=== PATIENT | male | born 1940 | race Caucasian/White ===

== ENCOUNTER → 2017-08-20 | Outpatient (CLI) | payer BC ==
[~2017-08-20] MED LIST: CHOL2000 PO; CYAN100020 PO; GABA-113 PO; MULT-506 PO; OXYC5TAB PO; POTACAP PO
[2017-08-20 10:12] LABS: BASO % 0.3 %; BASO ABS # 0.02 K/uL (0-0.2); EOS % 1.5 %; EOS ABS # 0.09 K/uL (0-0.5); HEMATOCRIT 46.5 % (42-52); HEMOGLOBIN 15.7 g/dL (14.0-18.0); IG# 0.01 K/uL (0.00-0.02); LYMPH % 26.2 %; MEAN CELL VOLUME 96.1 fL (80-100); MEAN CORPUSCULAR HEMOGLOBIN 32.4 pg (25-34); MEAN CORPUSCULAR HGB CONC 33.8 g/dl (32-36); MEAN PLATELET VOLUME 9.6 fL (7.4-10.4); MONO % 14.4 %; MONO ABS # 0.88 K/uL (0.11-0.59); NEUT % 57.4 %; NEUT ABS # 3.51 K/uL (1.4-6.5); PLATELET COUNT 229 K/uL (130-400); RED CELL DISTRIBUTION WIDTH CV 13.2 % (11.5-14.5); RED CELL DISTRIBUTION WIDTH SD 46.3 fL (36.4-46.3); WHITE BLOOD COUNT 6.11 K/uL (4.8-10.8)
[2017-08-24 14:32] LABS: ANA SCREEN TC 249X NEGATIVE (NEGATIVE)
== END | disposition home or self-care (01) ==
LOC: C.LAB 09:12
PROVIDERS: ATTEND Family Medicine
DX: R53.83 Other fatigue (principal); N40.2 Nodular prostate without lower urinary tract symptoms

== ENCOUNTER → 2017-08-25 | Outpatient (CLI) | payer BC ==
--- NOTE | 2017-08-25 12:06 | DIAGNOSTIC IMAGING REPORT ---
L-SPINE MIN 4 VIEWS ROUTINE CLINICAL HISTORY: LUMBAR PAIN COMPARISON: None FINDINGS: There is mild levoscoliosis of the lumbar spine. Vertebral body heights are maintained. There is no fracture or suspicious lesion. There is severe disc space narrowing at L4-L5. There is osteophytosis and sclerosis. There is mild to moderate disc space narrowing of multiple additional levels. There is moderate multilevel facet arthrosis. IMPRESSION: 1. No lumbar spine fracture or subluxation. 2. Marked disc space narrowing at L4-L5. 3. Moderate multilevel facet arthrosis. 4. Mild levoscoliosis of the lower lumbar spine. Electronically signed by: Felix Rubio M.D. 08/25/2017 12:04 PM Dictated Date/Time: 08/25/2017 12:03 PM
== END | disposition home or self-care (01) ==
LOC: C.RAD 11:38
PROVIDERS: ATTEND Family Medicine
DX: M54.5 Low back pain (principal)

== ENCOUNTER 2021-02-28 16:46 | Inpatient (IN) ==
[2021-02-28] MEDS ORDERED: MoRPHine SULFATE 4 MG/ML 1 ML CARP\\VIAL IV PRN (17:45)
[2021-02-28] MEDS ORDERED: SODIUM CHLORIDE 0.9% 1000ML 1,000 ML IV STA (17:45)
[2021-02-28] MEDS ORDERED: ONDANSETRON INJ 2 MG/ML 2 ML VIAL IV STA (17:45)
[2021-02-28] MEDS ORDERED: OPTIRAY 320 100ml IV ONE (18:15)
[2021-02-28 18:16] LABS: Hematocrit (blood only) 50.2 % (42-52); Hemoglobin 16.6 g/dL (14.0-18.0); Immature Granulocytes # (auto) 0.02 K/uL (0.00-0.02); Immature Granulocytes % (auto) 0.2 %; Lymphocytes # (auto) 0.29 K/uL (1.2-3.4); Mean Corpuscular Hemoglobin 33.6 pg (25-34); Mean Corpuscular Hgb Conc 33.1 g/dL (32-36); Mean Corpuscular Volume 101.6 fL (80-100); Mean Platelet Volume 9.8 fL (7.4-10.4); Monocytes # (auto) 0.33 K/uL (0.11-0.59); Monocytes % (auto) 3.4 %; Neutrophils # (auto) 9.11 K/uL (1.4-6.5); Neutrophils % (auto) 93.4 %; Platelet Count 254 K/uL (130-400); RDW Coefficient of Variation 13.7 % (11.5-14.5); RDW Standard Deviation 50.9 fL (36.4-46.3); Red Blood Count 4.94 M/uL (4.7-6.1); White Blood Count 9.75 K/uL (4.8-10.8)
[2021-02-28 18:29] LABS: Partial Thromboplastin Time 25.3 Seconds (21.0-31.0); Prothrombin Time 10.5 Seconds (9.0-12.0)
[2021-02-28 18:35] LABS: Alanine Aminotransferase 188 U/L (12-78); Albumin Level 3.8 gm/dl (3.4-5.0); Aspartate Aminotransferase 227 U/L (15-37); BUN Creatinine Ratio 13.2 (10-20); Blood Urea Nitrogen 16 mg/dl (7-18); Calcium 9.6 mg/dl (8.5-10.1); Carbon Dioxide 26 mmol/L (21-32); Chloride 107 mmol/L (98-107); Est GFR (African American) 67.4 ml/min; Est GFR (Non-African American) 58.2 ml/min; Glucose 127 mg/dl (70-99); Potassium 3.9 mmol/L (3.5-5.1); Sodium 140 mmol/L (136-145)
[2021-02-28 18:40] LABS: Alkaline Phosphatase 98 U/L (45-117); Bilirubin,Total 3.9 mg/dl (0.2-1); Globulin 3.8 gm/dl (2.5-4.0); Lipase 3113 U/L (73-393); Total Protein 7.6 gm/dl (6.4-8.2); Troponin I < 0.015 ng/ml (0-0.045)
[2021-02-28] MEDS ORDERED: PIPERACILL/TAZOBAC CONSULT ACTIVE PRN (18:46)
[2021-02-28] MEDS ORDERED: PIPERACILLIN/TAZOBACTAM 4.5 GM/120 ML BAG IV ONE (18:46)
--- NOTE | 2021-02-28 18:54 | CT Scan Report ---
CT SCAN OF THE ABDOMEN AND PELVIS WITH IV CONTRAST CLINICAL HISTORY: Vomiting. COMPARISON STUDY: Lumbar spine radiographs dated 08/25/2017. TECHNIQUE: Following the IV administration of 94 cc of Optiray 320, CT scan of the abdomen and pelvi s is performed from the lung bases to the proximal femora. Images are reviewed in the axial, sagittal , and coronal planes. IV contrast was administered without complication. A dose lowering technique wa s utilized adhering to the principles of ALARA. CT DOSE: 533.24 mGy.cm FINDINGS: Lung bases: The heart is top normal in size and without pericardial effusion. There are coronary daniela ry calcifications. A moderate hiatal hernia is noted. The lung bases are clear noting bibasilar scarr ing/atelectasis. Liver: The contrast-enhanced liver is normal in size, contour, and attenuation. There is no intrahepa tic biliary ductal dilatation. The hepatic veins and portal veins are patent. Mild periportal edema i s noted. Gallbladder: There are numerous calcified gallstones. The gallbladder is distended, with wall thicken ing and hyperemia. Pericholecystic stranding is observed. Spleen: Normal in size and attenuation. Pancreas: Unremarkable. Adrenal glands: Unremarkable. Kidneys: The contrast enhanced kidneys demonstrate cortical atrophy and are without hydronephrosis. T he kidneys enhance symmetrically. Abdominal vasculature: The abdominal aorta is normal in course and caliber noting moderate to advance d atherosclerotic calcification. Bowel: There is moderate colonic diverticulosis without CT evidence of acute diverticulitis. No bowel obstruction is seen. A duodenal diverticulum is incidentally noted. Question nodular wall thickening of the second portion of the duodenum, best seen on axial image #181. The appendix is well-visualiz ed and normal. Peritoneum: There is no intraperitoneal free air or abdominal ascites. Lymphadenopathy: None. Pelvic viscera: The prostate gland is mildly enlarged and heterogeneous. The bladder is distended. Bl adder wall appears mildly thickened and trabeculated indicating chronic outlet obstruction. There are small bilateral fat-containing inguinal hernias, right larger than left. Skeletal structures: The skeletal structures are osteopenic. There are healed left-sided rib fracture s. Moderate lumbosacral spondylosis is observed. No lytic or blastic lesions are seen. IMPRESSION: 1. Cholelithiasis with acute cholecystitis. 2. There is no intra or extrahepatic biliary ductal dilatation. 3. Question nodular wall thickening of the second portion of the duodenum. This is of indeterminant s ignificance and may represent redundant mucosa. Consider correlation with endoscopy to assess for und erlying mass lesion. 4. Moderate colonic diverticulosis without CT evidence of acute diverticulitis. 5. Hiatal hernia. 6. Additional findings as above. ACT 112: Positive. There are findings on this exam that require communication between the performing entity and the patient following Patient Test Result Information Act ([place] Act 112) guidelines. Electronically signed by: Romeo Fiore M.D. 02/28/2021 6:52 PM
--- NOTE | 2021-02-28 18:56 | Emergency Department Note ---
Impression & Plan Acute cholecystitis, Acute gallstone pancreatitis, Abdominal pain, acute, epigastric, Atrial fibrillation with rapid ventricular response ED Provider Note NAME: PEG KAUR AGE: 80 SEX: M : 1940 ARRIVES VIA: Walk-In INFORMANT: Patient, ED PROVIDER(S): Alan Shannon DO CHIEF COMPLAINT: Abdominal pain HPI: The patient is a 80-year-old male who presented to the emergency department for an evaluation of abdominal pain. The patient is very severe periumbilical and upper quadrant abdominal pain. The patient has had episodes of nausea vomiting. This occurred after eating today. He has never had similar symptoms in the past. He states the pain was acute and severe. He has had no recent trauma. He is noticed no fevers. He notices no chest pain or difficulty breathing. The patient himself does not have a history of surgical procedures on his abdomen. He still has his gallbladder as well as appendix. He is never had a bowel obstruction. He did not see a provider prior to coming to the emergency department. He states his symptoms are moderate to severe. His symptoms worsen with palpation over the abdomen as well as ambulation. ROS: See above HPI for pertinent positives & negatives. A total of 10 systems reviewed and were otherwise negative. PAST MEDICAL HISTORY: See Below PAST SURGICAL HISTORY: See Below FAMILY HISTORY: See Below SOCIAL HISTORY: See Below HOME MEDICATIONS: See Below ALLERGIES: See Below VITALS: See Below PHYSICAL EXAMINATION: GENERAL: The patient is awake and alert. The patient is very anxious appearing. He is significant pain. EYES: The conjunctivae are clear. The pupils are round and reactive. EARS, NOSE, MOUTH AND THROAT: The nose is without any evidence of any deformity. NECK: The neck is nontender and supple. RESPIRATORY: Normal respiratory effort is noted there is no evidence of wheezing rhonchi or rales CARDIOVASCULAR: Regular rate and rhythm noted there no murmurs rubs or gallops normal S1 normal S2. GASTROINTESTINAL: The abdomen is soft and moderately distended. There is significant pain to palpation over the upper abdomen in the right upper quadrant as well as epigastric region. MUSCULOSKELETAL/EXTREMITIES: There is no evidence of gross deformity full range of motion is noted in the hips and shoulders. SKIN: There is no obvious evidence of any rash. There are no petechiae, pallor or cyanosis noted. NEUROLOGIC: Patient is awake alert and oriented x3. MEDICAL DECISION MAKING: The patient is a 80-year-old male who presented to the emergency department with acute epigastric abdominal pain. On physical exam patient did have very significant findings and was guarding in his upper abdomen. I discussed the patient's laboratory and radiographic studies with him. He was treated with IV fluids IV pain medication and IV antiemetics. He was also treated with IV antib iotics. The patient was found no signs of cholecystitis on radiographic studies and also had elevation in his liver function studies that could be consistent with an obstructive pattern. I discussed the patient's condition with the on- call general surgeon. I also discussed his case with the on-call [facility] hospitalist. The patient was also found to have atrial fibrillation. This would be a new diagnosis for him. Likely the patient will require further medical treatment and clearance prior to surgical intervention. He may also require evaluation for obstructive gallstones. Triage Nursing notes reviewed. Prior medical records reviewed Vital Signs: reviewed and remarkable for hypertension. Differential diagnosis: Appendicitis, testicular torsion, infections, diverticulitis, UTI, obstruction, mesenteric ischemia, aortic pathology, inflammatory bowel disease, renal colic, PUD, pancreatitis, biliary pathology, hernia, volvulus, constipation, as well as other pathologies. ER treatment provided: See below Diagnostics interpreted by me: ECG: EKG was obtained in the emergency department. My interpretation is atrial fibrillation at 103 bpm. There were no PVCs noted. Low voltage was noted throughout. This was compared to a tracing from November [id number]. Sinus rhythm has been replaced with atrial fibrillation. Cardiac Monitoring: An order was placed for continuous cardiac monitoring. The monitor shows a rate of 88 bpm with sinus rhythm. Laboratory studies: As stated above and show below. Imaging studies: See below Consultation(s): 1929: I discussed this case with Dr. Haskins. 1999: I discussed this case with Dr. Cruz who is on-call for [facility]. He will evaluate the patient in the emergency department. 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 Prostate nodule Skin cancer Varicose veins with inflammation Surgical History No pertinent past surgical history Family History Denies family history of Hearing loss No family history of adverse response to anesthesia No family history of bleeding disorder Heart disease Allergies Cancer Hypertension Stroke Asthma Social History Smoking Status: Never smoker Tobacco Type: Cigarettes and Smokeless Tobacco (Dip or Chew) Hx Alcohol Use: Yes Alcohol type: beer Alcohol Intake Frequency Comment: 6 pack a week Hx Substance Use: No Preferred Language: Occitan Communication Ability: Effective marital status: / Current Living Situation: Alone current occupational status: retired Feels Safe at Home: Yes Allergies Allergies Allergy/AdvReac Type Severity Reaction Status Date / Time No Known Drug Allergies Allergy Unknown Verified 02/28/21 17:43 Home Meds Home Medications Medication Instructions Recorded Confirmed celecoxib 200 mg capsule 200 mg PO BID 02/28/21 02/28/21 cyclobenzaprine 10 mg tablet 10 mg PO TID PRN 02/28/21 02/28/21 quinidine sulfate 200 mg tablet 200 mg PO DAILY PRN 02/28/21 02/28/21 Results & Data (ED) Vital Signs Vital Signs - 24 hr 02/28/21 16:53 02/28/21 18:16 Temperature 36 C L Temperature Source Temporal Artery Scan Pulse Rate 88 Pulse Rhythm Regular Pulse Strength Normal Respiratory Rate 16 Respiratory Effort / Characteristics Non-Labored Respiratory Depth Normal Respiratory Pattern Regular Blood Pressure 149/130 H Blood Pressure Mean 136 Blood Pressure Position Sitting Pulse Oximetry 96 93 Oxygen Delivery Method Room Air Nasal Cannula Oxygen Flow Rate 6 Sepsis Recent Fever Within 48 Hours No Sepsis New/Unexplained Change in Mental Status N/A Sepsis Action Taken by Nursing No Action Required Home Medications Current Medication List: was personally reviewed by me Laboratory Data Attestation: I reviewed the patient's lab results. Result diagrams: 02/28/21 18:02 02/28/21 18:02 Lab Results 02/28/21 02/28/21 02/28/21 Range/Units 18:02 18:02 18:02 WBC 9.75 (4.8-10.8) K/uL RBC 4.94 (4.7-6.1) M/uL Hgb 16.6 (14.0-18.0) g/dL Hct 50.2 (42-52) % MCV 101.6 H (80-100) fL MCH 33.6 (25-34) pg MCHC 33.1 (32-36) g/dL RDW Std Deviation 50.9 H (36.4-46.3) fL RDW Coeff of Francine 13.7 (11.5-14.5) % Plt Count 254 (130-400) K/uL MPV 9.8 (7.4-10.4) fL Immature Gran % (Auto) 0.2 % Neut % (Auto) 93.4 % Lymph % (Auto) 3.0 % Hanson % (Auto) 3.4 % Eos % (Auto) 0.0 % Baso % (Auto) 0.0 % Neut # (Auto) 9.11 H (1.4-6.5) K/uL Lymph # (Auto) 0.29 L (1.2-3.4) K/uL Hanson # (Auto) 0.33 (0.11-0.59) K/uL Eos # (Auto) 0.00 (0-0.5) K/uL Baso # (Auto) 0.00 (0-0.2) K/uL Immature Gran # (Auto) 0.02 (0.00-0.02) K/uL PT 10.5 (9.0-12.0) Seconds INR 1.0 (0.9-1.1) APTT 25.3 (21.0-31.0) Seconds PTT Ratio 1.0 Sodium 140 (136-145) mmol/L Potassium 3.9 (3.5-5.1) mmol/L Chloride 107 (98-107) mmol/L Carbon Dioxide 26 (21-32) mmol/L Anion Gap 7.0 (3-11) BUN 16 (7-18) mg/dl Creatinine 1.19 (0.6-1.4) mg/dl Est Cr Clr Drug Dosing Not Reportable Est GFR ( Amer) 67.4 ml/min Est GFR (Non-Af Amer) 58.2 ml/min BUN/Creatinine Ratio 13.2 (10-20) Glucose 127 H (70-99) mg/dl Calcium 9.6 (8.5-10.1) mg/dl Total Bilirubin 3.9 H (0.2-1) mg/dl AST 227 H (15-37) U/L ALT 188 H (12-78) U/L Alkaline Phosphatase 98 (45-117) U/L Troponin I < 0.015 (0-0.045) ng/ml Total Protein 7.6 (6.4-8.2) gm/dl Albumin 3.8 (3.4-5.0) gm/dl Globulin 3.8 (2.5-4.0) gm/dl Albumin/Globulin Ratio 1.0 (0.9-2) Lipase 3113 H (73-393) U/L COVID-19 Eval Order 02/28/21 Range/Units Unknown WBC (4.8-10.8) K/uL RBC (4.7-6.1) M/uL Hgb (14.0-18.0) g/dL Hct (42-52) % MCV (80-100) fL MCH (25-34) pg MCHC (32-36) g/dL RDW Std Deviation (36.4-46.3) fL RDW Coeff of Francine (11.5-14.5) % Plt Count (130-400) K/uL MPV (7.4-10.4) fL Immature Gran % (Auto) % Neut % (Auto) % Lymph % (Auto) % Hanson % (Auto) % Eos % (Auto) % Baso % (Auto) % Neut # (Auto) (1.4-6.5) K/uL Lymph # (Auto) (1.2-3.4) K/uL Hanson # (Auto) (0.11-0.59) K/uL Eos # (Auto) (0-0.5) K/uL Baso # (Auto) (0-0.2) K/uL Immature Gran # (Auto) (0.00-0.02) K/uL PT (9.0-12.0) Seconds INR (0.9-1.1) APTT (21.0-31.0) Seconds PTT Ratio Sodium (136-145) mmol/L Potassium (3.5-5.1) mmol/L Chloride (98-107) mmol/L Carbon Dioxide (21-32) mmol/L Anion Gap (3-11) BUN (7-18) mg/dl Creatinine (0.6-1.4) mg/dl Est Cr Clr Drug Dosing Est GFR ( Amer) ml/min Est GFR (Non-Af Amer) ml/min BUN/Creatinine Ratio (10-20) Glucose (70-99) mg/dl Calcium (8.5-10.1) mg/dl Total Bilirubin (0.2-1) mg/dl AST (15-37) U/L ALT (12-78) U/L Alkaline Phosphatase (45-117) U/L Troponin I (0-0.045) ng/ml Total Protein (6.4-8.2) gm/dl Albumin (3.4-5.0) gm/dl Globulin (2.5-4.0) gm/dl Albumin/Globulin Ratio (0.9-2) Lipase (73-393) U/L COVID-19 Eval Order Covid19 at [facility] Administered Medications Morphine Sulfate (Morphine Sulfate 4 Mg/Ml 1 Ml Carp\Vial) 4 mg IV Q15M PRN PRN Reason: Pain Stop: 03/14/21 17:44 Last Admin: 02/28/21 17:59 Dose: 4 mg Documented by: [id number] Discontinued Medications Sodium Chloride (Nss 1000ml) 1,000 mls @ 999 mls/hr IV .Q1H1M STA Stop: 02/28/21 18:45 Last Infusion: 02/28/21 21:19 Dose: 0 mls/hr Documented by: [id number] Admin: 02/28/21 17:59 Dose: 999 mls/hr Documented by: [id number] Piperacillin Sod/Tazobactam Sod (Zosyn) 4.5 gm in 120 mls @ 240 mls/hr IV NOW ONE Stop: 02/28/21 19:15 Last Infusion: 02/28/21 19:49 Dose: 0 mls/hr Documented by: [id number] Admin: 02/28/21 19:10 Dose: 240 mls/hr Documented by: [id number] Sodium Chloride (Nss 1000ml) 1,000 mls @ 999 mls/hr IV .Q1H1M ONE Stop: 02/28/21 21:15 Last Infusion: 02/28/21 23:07 Dose: 0 mls/hr Documented by: [id number] Admin: 02/28/21 20:58 Dose: 999 mls/hr Documented by: [id number] Ioversol (Optiray 320 100ml) 94 ml IV ONCE ONE Stop: 02/28/21 18:16 Last Admin: 02/28/21 18:16 Dose: 94 ml Documented by: [id number] Ondansetron HCl (Ondansetron Inj 2 Mg/Ml 2 Ml Vial) 4 mg IV NOW STA Stop: 02/28/21 17:46 Last Admin: 02/28/21 17:59 Dose: 4 mg Documented by: [id number] Imaging Data Radiologist's Impression: Abdomen/Pelvis CT 02/28/21 17:45 CT SCAN OF THE ABDOMEN AND PELVIS WITH IV CONTRAST CLINICAL HISTORY: Vomiting. COMPARISON STUDY: Lumbar spine radiographs dated 08/25/2017. TECHNIQUE: Following the IV administration of 94 cc of Optiray 320, CT scan of the abdomen and pelvis is performed from the lung bases to the proximal femora. Images are reviewed in the axial, sagittal, and coronal planes. IV contrast was administered without complication. A dose lowering technique was utilized adhering to the principles of ALARA. CT DOSE: 533.24 mGy.cm FINDINGS: Lung bases: The heart is top normal in size and without pericardial effusion. There are coronary artery calcifications. A moderate hiatal hernia is noted. The lung bases are clear noting bibasilar scarring/atelectasis. Liver: The contrast-enhanced liver is normal in size, contour, and attenuation. There is no intrahepatic biliary ductal dilatation. The hepatic veins and portal veins are patent. Mild periportal edema is noted. Gallbladder: There are numerous calcified gallstones. The gallbladder is distended, with wall thickening and hyperemia. Pericholecystic stranding is observed. Spleen: Normal in size and attenuation. Pancreas: Unremarkable. Adrenal glands: Unremarkable. Kidneys: The contrast enhanced kidneys demonstrate cortical atrophy and are without hydronephrosis. The kidneys enhance symmetrically. Abdominal vasculature: The abdominal aorta is normal in course and caliber noting moderate to advanced atherosclerotic calcification. Bowel: There is moderate colonic diverticulosis without CT evidence of acute diverticulitis. No bowel obstruction is seen. A duodenal diverticulum is incidentally noted. Question nodular wall thickening of the second portion of the duodenum, best seen on axial image #181. The appendix is well-visualized and normal. Peritoneum: There is no intraperitoneal free air or abdominal ascites. Lymphadenopathy: None. Pelvic viscera: The prostate gland is mildly enlarged and heterogeneous. The bladder is distended. Bladder wall appears mildly thickened and trabeculated indicating chronic outlet obstruction. There are small bilateral fat-containing inguinal hernias, right larger than left. Skeletal structures: The skeletal structures are osteopenic. There are healed left-sided rib fractures. Moderate lumbosacral spondylosis is observed. No lytic or blastic lesions are seen. IMPRESSION: 1. Cholelithiasis with acute cholecystitis. 2. There is no intra or extrahepatic biliary ductal dilatation. 3. Question nodular wall thickening of the second portion of the duodenum. This is of indeterminant significance and may represent redundant mucosa. Consider correlation with endoscopy to assess for underlying mass lesion. 4. Moderate colonic diverticulosis without CT evidence of acute diverticulitis. 5. Hiatal hernia. 6. Additional findings as above. ACT 112: Positive. There are findings on this exam that require communication between the performing entity and the patient following Patient Test Result Information Act ([place] Act 112) guidelines. Electronically signed by: Romeo Fiore M.D. 02/28/2021 6:52 PM Discharge Plan Visit Data Chief Complaint: Abdominal Pain Stated Complaint: SEVERE ABD PAIN, VOMITING ED Provider: Alan Shannon Discharge Problem: Acute cholecystitis, Acute gallstone pancreatitis, Abdominal pain, acute, epigastric, Atrial fibrillation with rapid ventricular response Patient Disposition: Being Evaluated by Hospitalist Condition: Good Forms Stand Alone Forms: [employer] Prescriptions Prescriptions: No Action celecoxib 200 mg capsule 200 mg PO BID RF: 0 cyclobenzaprine 10 mg tablet 10 mg PO TID PRN (Reason: Muscle Spasm) RF: 0 quinidine sulfate 200 mg tablet 200 mg PO DAILY PRN (Reason: cramping) RF: 0 Referrals Referrals: Scout Tomlin MD [Primary Care Provider] -
[2021-02-28] MEDS ORDERED: SODIUM CHLORIDE 0.9% 1000ML 1,000 ML IV ONE (20:15)
--- NOTE | 2021-02-28 21:47 | History & Physical Report ---
Date of Service February 28, 2021 Assessment & Plan (1) Acute cholecystitis: Plan: Acute cholecystitis/acute gallstone pancreatitis- Laboratories: Total bilirubin 3.9, AST 227, ALT 188, lipase 3113, will be followed serially NPO Zosyn 4.5 g IV every 8 hours Zofran 4 mg IV every 6 hours as needed NSS + KCl 20 mEq at 100 mils per hour Morphine sulfate 2 mg IV every 4 hours as needed severe pain, monitor closely for excess sedation Have asked ED to order MRCP. If MRCP shows, bile duct obstructing stone, then GI will be consulted for an ERCP. General surgery is aware the patient New onset atrial fibrillation- The patient will be admitted to telemetry for serial cardiac enzymes, serial EKG's, cardiac rhythm monitoring and a 2-D echocardiogram with Dopplers. Mild RVR with rate of 103 Significantly dehydrated, and will rehydrate with IV fluids as noted Patient with low [id number] score. We will hold anticoagulation this evening Pneumonia with Hypoxia/left parapneumonic effusion- CT angiography shows progressive changes at the bases bilaterally, left greater than right. Would be concerning for possible aspiration pneumonia while in the ED versus pneumonia precipitated by atelectasis Continue nasal cannula oxygen, titration to keep pulse ox around 94 to 95% Zosyn IV as above DuoNebs every 2 hours as needed COVID-19 testing was negative (2) Acute gallstone pancreatitis: Plan: See above (3) Atrial fibrillation with rapid ventricular response: Plan: No history of atrial fibrillation Likely secondary to physiologic stress of gallstone pancreatitis and pneumonia Holding anticoagulation for tonight as noted above Heart rate is controlled in the 90s on no negative inotropes (4) Bilateral leg cramps: Plan: Holding oral medications History of Present Illness Chief Complaint: The patient presents to the emergency department for assessment of severe periumbilical and right upper quadrant abdominal pain, nausea and vomiting, that occurred after eating today. Primary Care Provider: Scout Tomlin MD The patient is a 80-year-old male with past medical history including cervical spinal stenosis, epistaxis, and leg cramps. He presents with symptoms as noted above. He never had symptoms. He does feel generally weak as well. Work-up in the emergency department included the following abnormal laboratories: Total bilirubin 3.9, AST 227, ALT 188, lipase 3113 and glucose 127. EKG shows atrial fibrillation with RVR at 103 COVID-19 testing is pending at this time. The patient did become somewhat hypoxic, changed from 96% to 76% after receiving morphine 4 mg IV, and chest x-ray is pending Allergies Allergy/AdvReac Type Severity Reaction Status Date / Time No Known Drug Allergies Allergy Unknown Verified 02/28/21 17:43 Home Medications Medication Instructions Recorded Confirmed Type celecoxib 200 mg capsule 200 mg PO BID 02/28/21 02/28/21 History cyclobenzaprine 10 mg tablet 10 mg PO TID PRN 02/28/21 02/28/21 History quinidine sulfate 200 mg tablet 200 mg PO DAILY PRN 02/28/21 02/28/21 History 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 Prostate nodule Skin cancer Varicose veins with inflammation Surgical History No pertinent past surgical history Family History Denies family history of Hearing loss No family history of adverse response to anesthesia No family history of bleeding disorder Heart disease Allergies Cancer Hypertension Stroke Asthma Social History Smoking Status: Never smoker Tobacco Type: Cigarettes and Smokeless Tobacco (Dip or Chew) Hx Alcohol Use: Yes Alcohol type: beer Alcohol Intake Frequency Comment: 6 pack a week Hx Substance Use: No Preferred Language: [place]ankan Communication Ability: Effective marital status: / Current Living Situation: Alone current occupational status: retired Feels Safe at Home: Yes Review of Systems Review of Systems: The patient denies chest pain, palpitations, cough, lower extremity swelling, sore throat, fevers, chills, sweats, vomiting, diarrhea , constipation, blood in urine or stool, dysuria, urinary frequency or urgency, lightheadedness, dizziness, headache, memory loss, loss of consciousness, rash, abnormal bruising or bleeding, imbalance, focal weakness, numbness or tingling in arms or legs, generalized arthralgias or myalgias, back or neck pain, or night sweats. The review of systems is otherwise negative other than for that already noted above, and at least 10 systems have been reviewed. Physical Exam Physical Exam: The patient is awake, alert and oriented 3, normocephalic and atraumatic, lying in bed and in no acute distress. HEENT--PERRL, EOMI, mucous membranes and oropharynx dry. Neck--supple. No JVD. No bruits. Thyroid normal, trachea midline, no adenopathy. Heart--normal S1 and S2. No murmurs, rubs or gallops. Lungs--clear bilaterally, no respiratory distress, no accessory muscle use. Abdomen--normal bowel sounds and soft. Nontender post morphine IV. Nondistended Extremities--no cyanosis or clubbing. No edema. Dermatologic--normal skin turgor, normal color, no abnormal lymph nodes, no rash. Neurologic--cranial nerves II through XII grossly intact. Rheumatologic--normal range of motion. Psychiatric--normal affect. Results & Data Results & Data ([facility]) Vital Signs (Past 12 Hours) Vital Signs Temp Pulse Resp BP Pulse Ox 02/28/21 18:16 93 02/28/21 16:53 96.8 F L 88 16 149/130 H 96 Laboratory Results Laboratory Results WBC 9.75 K/uL (4.8-10.8) 02/28/21 18:02 RBC 4.94 M/uL (4.7-6.1) 02/28/21 18:02 Hgb 16.6 g/dL (14.0-18.0) 02/28/21 18:02 Hct 50.2 % (42-52) 02/28/21 18:02 MCV 101.6 fL (80-100) H 02/28/21 18:02 MCH 33.6 pg (25-34) 02/28/21 18:02 MCHC 33.1 g/dL (32-36) 02/28/21 18:02 RDW Std Deviation 50.9 fL (36.4-46.3) H 02/28/21 18:02 RDW Coeff of Francine 13.7 % (11.5-14.5) 02/28/21 18:02 Plt Count 254 K/uL (130-400) 02/28/21 18:02 MPV 9.8 fL (7.4-10.4) 02/28/21 18:02 Immature Gran % (Auto) 0.2 % 02/28/21 18:02 Neut % (Auto) 93.4 % 02/28/21 18:02 Lymph % (Auto) 3.0 % 02/28/21 18:02 Noble % (Auto) 3.4 % 02/28/21 18:02 Eos % (Auto) 0.0 % 02/28/21 18:02 Baso % (Auto) 0.0 % 02/28/21 18:02 Neut # (Auto) 9.11 K/uL (1.4-6.5) H 02/28/21 18:02 Lymph # (Auto) 0.29 K/uL (1.2-3.4) L 02/28/21 18:02 Noble # (Auto) 0.33 K/uL (0.11-0.59) 02/28/21 18:02 Eos # (Auto) 0.00 K/uL (0-0.5) 02/28/21 18:02 Baso # (Auto) 0.00 K/uL (0-0.2) 02/28/21 18:02 Immature Gran # (Auto) 0.02 K/uL (0.00-0.02) 02/28/21 18:02 PT 10.5 Seconds (9.0-12.0) 02/28/21 18:02 INR 1.0 (0.9-1.1) 02/28/21 18:02 APTT 25.3 Seconds (21.0-31.0) 02/28/21 18:02 PTT Ratio 1.0 02/28/21 18:02 Sodium 140 mmol/L (136-145) 02/28/21 18:02 Potassium 3.9 mmol/L (3.5-5.1) 02/28/21 18:02 Chloride 107 mmol/L (98-107) 02/28/21 18:02 Carbon Dioxide 26 mmol/L (21-32) 02/28/21 18:02 Anion Gap 7.0 (3-11) 02/28/21 18:02 BUN 16 mg/dl (7-18) 02/28/21 18:02 Creatinine 1.19 mg/dl (0.6-1.4) 02/28/21 18:02 Est Cr Clr Drug Dosing Not Reportable 02/28/21 18:02 Est GFR ( Amer) 67.4 ml/min 02/28/21 18:02 Est GFR (Non-Af Amer) 58.2 ml/min 02/28/21 18:02 BUN/Creatinine Ratio 13.2 (10-20) 02/28/21 18:02 Glucose 127 mg/dl (70-99) H 02/28/21 18:02 Calcium 9.6 mg/dl (8.5-10.1) 02/28/21 18:02 Total Bilirubin 3.9 mg/dl (0.2-1) H 02/28/21 18:02 AST 227 U/L (15-37) H 02/28/21 18:02 ALT 188 U/L (12-78) H 02/28/21 18:02 Alkaline Phosphatase 98 U/L (45-117) 02/28/21 18:02 Troponin I < 0.015 ng/ml (0-0.045) 02/28/21 18:02 Total Protein 7.6 gm/dl (6.4-8.2) 02/28/21 18:02 Albumin 3.8 gm/dl (3.4-5.0) 02/28/21 18:02 Globulin 3.8 gm/dl (2.5-4.0) 02/28/21 18:02 Albumin/Globulin Ratio 1.0 (0.9-2) 02/28/21 18:02 Lipase 3113 U/L (73-393) H 02/28/21 18:02 COVID-19 Eval Order Covid19 at [facility] 02/28/21 Unknown Impressions Abdomen/Pelvis CT 02/28/21 17:45 CT SCAN OF THE ABDOMEN AND PELVIS WITH IV CONTRAST CLINICAL HISTORY: Vomiting. COMPARISON STUDY: Lumbar spine radiographs dated 08/25/2017. TECHNIQUE: Following the IV administration of 94 cc of Optiray 320, CT scan of the abdomen and pelvis is performed from the lung bases to the proximal femora. Images are reviewed in the axial, sagittal, and coronal planes. IV contrast was administered without complication. A dose lowering technique was utilized adhering to the principles of ALARA. CT DOSE: 533.24 mGy.cm FINDINGS: Lung bases: The heart is top normal in size and without pericardial effusion. There are coronary artery calcifications. A moderate hiatal hernia is noted. The lung bases are clear noting bibasilar scarring/atelectasis. Liver: The contrast-enhanced liver is normal in size, contour, and attenuation. There is no intrahepatic biliary ductal dilatation. The hepatic veins and portal veins are patent. Mild periportal edema is noted. Gallbladder: There are numerous calcified gallstones. The gallbladder is distended, with wall thickening and hyperemia. Pericholecystic stranding is observed. Spleen: Normal in size and attenuation. Pancreas: Unremarkable. Adrenal glands: Unremarkable. Kidneys: The contrast enhanced kidneys demonstrate cortical atrophy and are without hydronephrosis. The kidneys enhance symmetrically. Abdominal vasculature: The abdominal aorta is normal in course and caliber noting moderate to advanced atherosclerotic calcification. Bowel: There is moderate colonic diverticulosis without CT evidence of acute diverticulitis. No bowel obstruction is seen. A duodenal diverticulum is incidentally noted. Question nodular wall thickening of the second portion of the duodenum, best seen on axial image #181. The appendix is well-visualized and normal. Peritoneum: There is no intraperitoneal free air or abdominal ascites. Lymphadenopathy: None. Pelvic viscera: The prostate gland is mildly enlarged and heterogeneous. The bladder is distended. Bladder wall appears mildly thickened and trabeculated indicating chronic outlet obstruction. There are small bilateral fat-containing inguinal hernias, right larger than left. Skeletal structures: The skeletal structures are osteopenic. There are healed left-sided rib fractures. Moderate lumbosacral spondylosis is observed. No lytic or blastic lesions are seen. IMPRESSION: 1. Cholelithiasis with acute cholecystitis. 2. There is no intra or extrahepatic biliary ductal dilatation. 3. Question nodular wall thickening of the second portion of the duodenum. This is of indeterminant significance and may represent redundant mucosa. Consider correlation with endoscopy to assess for underlying mass lesion. 4. Moderate colonic diverticulosis without CT evidence of acute diverticulitis. 5. Hiatal hernia. 6. Additional findings as above. ACT 112: Positive. There are findings on this exam that require communication between the performing entity and the patient following Patient Test Result Information Act ([place] Act 112) guidelines. Electronically signed by: Romeo Fiore M.D. 02/28/2021 6:52 PM Diagnostic Findings [facility], [id number] CT Scan Report Patient: PEG KAUR EAdmit Date: 02/28/21#: [id number]: [address] [facility][id number]: [facility] Zip: [place] [id number]: [id number]: EDSex: MRoom/Bed:Att Phy:Diagnosis: SEVERE ABD PAIN, VOMITINGPri Phy: Scout Tomlin, MDService Date: 03/01/21Fa Phy:Interpreting Phy: Romeo Fiore MDAdmit Phy: Ordering Phy: Alan Shannon DO cc: ~ CT ANGIOGRAM OF THE CHEST CLINICAL HISTORY: Hypoxia. COMPARISON STUDY: Chest x-ray dated 02/28/2021. Abdominal CT dated 02/28/2021. TECHNIQUE: Following the IV administration of 120 cc of Optiray 320, CT angiogram of the chest was performed from the upper abdomen to the thoracic inlet utilizing the pulmonary embolus protocol. Images are reviewed in the axial, sagittal, and coronal planes. 3-D MIPS images are created and assessed. IV contrast was administered without complication. A dose lowering technique was utilized adhering to the principles of ALARA. CT DOSE: 339.80 mGy.cm FINDINGS: Thyroid: Imaged portions of the thyroid gland are normal in size and attenuation. Thoracic aorta: There is mild atherosclerotic calcification of the thoracic aorta, which is normal in caliber and demonstrates 4-vessel very arch anatomy. No dissection is seen. Pulmonary vasculature: The main pulmonary arteries appear dilated suggesting pulmonary artery hypertension. There are no filling defects identified in main, lobar, or segmental pulmonary branches to suggest pulmonary embolus. Heart: The heart is top normal in size and without pericardial effusion. Lungs and pleural spaces: There is increasing dependent consolidation at both lung bases, left greater than right. There is trace left pleural effusion. Mild intralobular septal thickening is noted. The trachea and central airways appear clear. Mediastinum: There is no mediastinal lymphadenopathy. Alisson: Clear. Axillae: There is no axillary lymphadenopathy. Upper abdomen: Partially visualized upper abdominal viscera is within normal limits. Skeletal structures: The skeletal structures are osteopenic. No lytic or blastic bony lesions are seen. Fusion hardware is noted in the lower cervical spine. IMPRESSION: 1. There is no evidence of pulmonary embolus in the main, lobar, or segmental pulmonary arteries. 2. There is increasing airspace consolidation at both lung bases, left greater than right. This could represent progressive atelectasis versus an infectious/inflammatory pneumonitis. Clinical correlation will be required. 3. Trace left pleural effusion. 4. Mild intralobular septal thickening is noted. Correlate clinically for evidence of fluid overload/congestion. 5. Additional findings as above. ACT 112: Negative or not required by law. Electronically signed by: Romeo Fiore M.D. 03/01/2021 12:58 AM Dictated: 03/01/2150Transcribed: 03/01/2150 Code Status & VTE Plan Code Status Full code VTE Prophylaxis Plan VTE Prophylaxis will be ordered: Yes PG Care Time/CCT Total # of Minutes Spent Total Time Spent with Patient: Total time spent is greater than 50% in coordination of care (as documented) at patient's floor/unit and/or counseling patient: Coding Level of Care Code 16735 Initial Inpt Care Lvl 3 Diagnoses Acute cholecystitis K81.0 Acute gallstone pancreatitis K85.10 Atrial fibrillation with rapid ventricular response I48.91 Bilateral leg cramps R25.2
--- NOTE | 2021-03-01 00:21 | XRay Report ---
SINGLE VIEW CHEST CLINICAL HISTORY: Hypoxia. FINDINGS: An AP, portable, upright chest radiograph is compared to study dated 11/14/2015. Correlation is made with abdominal CT dated 02/28/2021. The heart is top normal for projection. Question pulmonary vascular congestion. There is a small left pleural effusion with left basilar consolidation. This is new from yesterday's abdominal CT. Mild airspace opacities are seen at the right lung base. No pneum othorax is seen. The skeletal structures are osteopenic. The bony thorax is grossly intact. Fusion lee rdware is noted in the lower cervical spine. IMPRESSION: 1. Question pulmonary vascular congestion. 2. There is a left pleural effusion with left basilar consolidation. This is new from yesterday's abd ominal CT. Correlate clinically for evidence of pneumonia/aspiration pneumonitis. Radiographic follow -up to resolution is recommended. ACT 112: Negative or not required by law. Electronically signed by: Romeo Fiore M.D. 03/01/2021 12:20 AM
[2021-03-01] MEDS ORDERED: OPTIRAY 320 125ml IV ONE (00:22)
[2021-03-01 00:59] LABS: Appearance Urine Clear (Clear); Blood Urine Negative (Negative); Color Urine Dark Yellow; Glucose Urine UA Negative (Negative); Ketones Urine Negative (Negative); Leukocyte Esterase Urine Negative (Negative); Nitrite Urine Negative (Negative); Protein Urine Negative (Negative); Specific Gravity Urine > 1.045 (1.000-1.030); Urobilinogen Urine Negative (Negative)
--- NOTE | 2021-03-01 00:59 | CT Scan Report ---
CT ANGIOGRAM OF THE CHEST CLINICAL HISTORY: Hypoxia. COMPARISON STUDY: Chest x-ray dated 02/28/2021. Abdominal CT dated 02/28/2021. TECHNIQUE: Following the IV administration of 120 cc of Optiray 320, CT angiogram of the chest was pe rformed from the upper abdomen to the thoracic inlet utilizing the pulmonary embolus protocol. Images are reviewed in the axial, sagittal, and coronal planes. 3-D MIPS images are created and assessed. I V contrast was administered without complication. A dose lowering technique was utilized adhering to the principles of ALARA. CT DOSE: 339.80 mGy.cm FINDINGS: Thyroid: Imaged portions of the thyroid gland are normal in size and attenuation. Thoracic aorta: There is mild atherosclerotic calcification of the thoracic aorta, which is normal in caliber and demonstrates 4-vessel very arch anatomy. No dissection is seen. Pulmonary vasculature: The main pulmonary arteries appear dilated suggesting pulmonary artery hyperte nsion. There are no filling defects identified in main, lobar, or segmental pulmonary branches to sug gest pulmonary embolus. Heart: The heart is top normal in size and without pericardial effusion. Lungs and pleural spaces: There is increasing dependent consolidation at both lung bases, left greate r than right. There is trace left pleural effusion. Mild intralobular septal thickening is noted. The trachea and central airways appear clear. Mediastinum: There is no mediastinal lymphadenopathy. Alisson: Clear. Axillae: There is no axillary lymphadenopathy. Upper abdomen: Partially visualized upper abdominal viscera is within normal limits. Skeletal structures: The skeletal structures are osteopenic. No lytic or blastic bony lesions are see n. Fusion hardware is noted in the lower cervical spine. IMPRESSION: 1. There is no evidence of pulmonary embolus in the main, lobar, or segmental pulmonary arteries. 2. There is increasing airspace consolidation at both lung bases, left greater than right. This could represent progressive atelectasis versus an infectious/inflammatory pneumonitis. Clinical correlatio n will be required. 3. Trace left pleural effusion. 4. Mild intralobular septal thickening is noted. Correlate clinically for evidence of fluid overload/ congestion. 5. Additional findings as above. ACT 112: Negative or not required by law. Electronically signed by: Romeo Fiore M.D. 03/01/2021 12:58 AM
[2021-03-01 01:11] LABS: Bilirubin Urine 1+ (Negative)
[2021-03-01] MEDS ORDERED: PIPERACILLIN/TAZOBACTAM 4.5 GM in DEXTROSE 5% 100 ML IV SCH (01:46)
[2021-03-01] MEDS ORDERED: MoRPHine SULFATE 2 MG/ML CARP IV PRN (01:46)
[2021-03-01] MEDS ORDERED: PIPERACILL/TAZOBAC CONSULT ACTIVE PRN (01:46)
[2021-03-01] MEDS ORDERED: ONDANSETRON INJ 2 MG/ML 2 ML VIAL IV PRN (01:46)
[2021-03-01] MEDS ORDERED: PIPERACILLIN/TAZOBACTAM 3.375 GM in DEXTROSE 5% 100 ML IV ONE (02:30)
[2021-03-01] MEDS: NSS + 20MEQ KCL 20 MEQ/1,000 ML BAG IV SCH ×3 (03:05→22:59)
[2021-03-01] MEDS: PIPERACILLIN/TAZOBACTAM 3.375 GM in DEXTROSE 5% 100 ML IV SCH ×3 (06:37→22:59)
[2021-03-01 08:09] LABS: Hematocrit (blood only) 41.1 % (42-52); Hemoglobin 13.3 g/dL (14.0-18.0); Mean Corpuscular Hemoglobin 33.3 pg (25-34); Mean Corpuscular Hgb Conc 32.4 g/dL (32-36); Mean Corpuscular Volume 102.8 fL (80-100); Mean Platelet Volume 9.9 fL (7.4-10.4); Platelet Count 211 K/uL (130-400); RDW Coefficient of Variation 14.3 % (11.5-14.5); RDW Standard Deviation 53.3 fL (36.4-46.3); White Blood Count 11.95 K/uL (4.8-10.8)
[2021-03-01 08:27] LABS: Albumin Level 2.7 gm/dl (3.4-5.0); BUN Creatinine Ratio 11.3 (10-20); Calcium 8.3 mg/dl (8.5-10.1); Creatinine Clr Calc Pharmacy 51.6 ml/min; Est GFR (African American) 68.1 ml/min; Est GFR (Non-African American) 58.8 ml/min; Magnesium 2.2 mg/dl (1.8-2.4); Potassium 4.2 mmol/L (3.5-5.1)
[2021-03-01 08:34] LABS: Albumin Globulin Ratio 0.9 (0.9-2); Bilirubin,Total 6.1 mg/dl (0.2-1); Globulin 2.9 gm/dl (2.5-4.0); Total Protein 5.6 gm/dl (6.4-8.2)
[2021-03-01 09:10] LABS: Basophils # (auto) 0.01 K/uL (0-0.2); Basophils % (auto) 0.1 %; Eosinophils # (auto) 0.01 K/uL (0-0.5); Eosinophils % (auto) 0.1 %; Immature Granulocytes # (auto) 0.04 K/uL (0.00-0.02); Immature Granulocytes % (auto) 0.3 %; Lymphocytes # (auto) 0.98 K/uL (1.2-3.4); Lymphocytes % (auto) 8.2 %; Monocytes % (auto) 14.2 %; Neutrophils # (auto) 9.21 K/uL (1.4-6.5); Neutrophils % (auto) 77.1 %; RBC Morphology Unremarkable
--- NOTE | 2021-03-01 09:14 | Hospitalist Progress Note ---
Date of Service March 01, 2021 Assessment & Plan (1) Acute cholecystitis: Plan: 1) Acute Cholecystitis with cholilithiasis - CT abd/pelvis 02/28 demonstrating Cholelithiasis with acute cholecystitis, Question nodular wall thickening of the second portion of the duodenum - WBC elevated 9.75 --> 11.95 (03/01) - continue pip/tazo abx - continue npo, IV fluids - continue PRN morphine, zophran - MRCP 03/01 demonstrated cholelithiasis, Increase in gallbladder wall thickening consistent with acute cholecystitis, no biliary ductal dilation, no common bile duct dilation - will consult surgery to perform cholecystectomy tomorrow or wednesday 2) Acute Gallstone Pancreatitis - Lipase elevated 3113 --> 534 (03/01) - CT abd/pelvis 02/28 demonstrating pancreas unremarkable, Question nodular wall thickening of the second portion of the duodenum - continue npo, IV fluids - continue PRN morphine, zophran 3) Pneumonia w/ L parapneumonic effusion - CT chest 03/01 demonstrates: There is increasing airspace consolidation at both lung bases, left greater than right. This could represent progressive atelectasis versus an infectious/inflammatory pneumonitis. Trace left pleural effusion. Mild intralobular septal thickening is noted. Correlate clinically for evidence of fluid overload/congestion. - WBC elevated at 11.95 - admit pulse ox 76% RA, currently 97% on 2L NC - continue pip/tazo abx 4) Paroxysmal Atrial Fibrillation - one episode of atrial fibrillation noted on EKG on 02/28, currently no longer present on telemetry and EKG 03/01 - troponins on arrival negative - CT chest 03/01 of normal size, no pericardial effusion, The main pulmonary arteries appear dilated suggesting pulmonary artery hypertension - cardiology consulted, suggest anticoagulation eliquie 5mg BID, hold off until surgery eval complete - echo 03/01 LVEF 55-60%, mild concentric LVH, mild mitral valve regurge, aortic valve sclerosis without stenosis 5) Wall thickening in Duodenum - CT abd/pelvis 02/28 demonstrating Question nodular wall thickening of the second portion of the duodenum. This is of indeterminant significance and may represent redundant mucosa. Consider correlation with endoscopy to assess for underlying mass lesion. - after assessing history of this patient, believe may be related to patient's cholelithiasis, possible ampulla inflammation secondary to passing gallstone - may consider ERCP in the future, hold off for now (2) Acute gallstone pancreatitis: (3) Abdominal pain, acute, epigastric: (4) Atrial fibrillation with rapid ventricular response: (5) Pneumonia: Admission and Anticipated Discharge Date Admission Date: February 28, 2021 Supervising Physician Co-Signing Physician Notes I personally examined the patient and verified all bosch points of history and exam, discussed case, and agree with decision making with Dr Kothari. feeling better no significant pain. Discussed with surgery. Vitals noted, in general he is awake and alert pleasant no distress. HEENT normocephalic atraumatic mucous membranes moist. Breathing unlabored no accessory muscle use good effort. Skin shows no rashes no pallor or icterus. R UQ tenderness w mild involuntary guarding RUQ pain - concern choley - surgery asks for US and GI eval. will order. continue zosyn. supportive care otherwise as above Subjective 80yo Male presented to hospital yesterday for severe periumbilical pain. Patient states yesterday he was eating lunch, roasted chicken leg, vomitted and proceeded to feel severe abd pain below the umbilicus. He states he had a similar episode last week where he ate lunch and vomitted, but did not experience pain at that time, he states this does not usually happen. Patient denies hematochezia, SOB, fever, chills, bloody stool as of yesterday. His son brought him to the ER. Currently patient seen at bedside sleepy pain well controlled with morphine doing well voiding normally. Currently NPO, telemetry sinus rate and rhythm 80's Nonsmoker drinks 1 can beer daily no drugs PMH: arthritis Meds: celecoxib, muscle relaxant PSH: none Review of Systems Review of Systems: Negative fever chills Negative headache dizziness Negative chest pain palpitations SOB Negative nausea vomitting diarrhea constipation Negative numbness tingling rash swelling Physical Exam Physical Exam: General: Well appearing, age appropriate Heart: RRR, +S1 S2, no murmurs/gallops/rubs Lungs: poor inspiratory effot, no wheezes/rales/rhonchi Abd: Tender to palpation in RUQ, no rebound tenderness, +BS Extremities: no swelling, no rashes Results & Data Results & Data ([facility]) Vital Signs (Past 12 Hours) Vital Signs Temp Pulse Pulse Resp BP BP Pulse Ox 03/01/21 07:43 36.8 C 85 16 106/52 L 96 03/01/21 07:00 82 03/01/21 04:19 82 03/01/21 02:01 37.1 C 94 H 14 127/78 97 03/01/21 01:58 37.1 C 94 H 14 127/78 97 03/01/21 01:21 90 14 96/44 L 96 03/01/21 00:22 99 H 16 93/45 L 97 Pulse Ox 03/01/21 07:43 03/01/21 07:00 03/01/21 04:19 03/01/21 02:01 03/01/21 01:58 97 03/01/21 01:21 03/01/21 00:22 Laboratory Results 03/01/21 03/01/21 03/01/21 Range/Units 07:48 07:48 00:45 WBC 11.95 H (4.8-10.8) K/uL RBC 4.00 L (4.7-6.1) M/uL Hgb 13.3 L D (14.0-18.0) g/dL Hct 41.1 L (42-52) % MCV 102.8 H (80-100) fL MCH 33.3 (25-34) pg MCHC 32.4 (32-36) g/dL RDW Std Deviation 53.3 H (36.4-46.3) fL RDW Coeff of Francine 14.3 (11.5-14.5) % Plt Count 211 (130-400) K/uL MPV 9.9 (7.4-10.4) fL Immature Gran % (Auto) 0.3 % Neut % (Auto) 77.1 % Lymph % (Auto) 8.2 % Ashe % (Auto) 14.2 % Eos % (Auto) 0.1 % Baso % (Auto) 0.1 % Neut # (Auto) 9.21 H (1.4-6.5) K/uL Lymph # (Auto) 0.98 L (1.2-3.4) K/uL Ashe # (Auto) 1.70 H (0.11-0.59) K/uL Eos # (Auto) 0.01 (0-0.5) K/uL Baso # (Auto) 0.01 (0-0.2) K/uL Immature Gran # (Auto) 0.04 H (0.00-0.02) K/uL RBC Morphology Unremarkable PT (9.0-12.0) Seconds INR (0.9-1.1) APTT (21.0-31.0) Seconds PTT Ratio Sodium 143 (136-145) mmol/L Potassium 4.2 (3.5-5.1) mmol/L Chloride 110 H (98-107) mmol/L Carbon Dioxide 28 (21-32) mmol/L Anion Gap 5.0 (3-11) BUN 13 (7-18) mg/dl Creatinine 1.18 (0.6-1.4) mg/dl Est Cr Clr Drug Dosing 51.6 Est GFR ( Amer) 68.1 ml/min Est GFR (Non-Af Amer) 58.8 ml/min BUN/Creatinine Ratio 11.3 (10-20) Glucose 119 H (70-99) mg/dl Calcium 8.3 L (8.5-10.1) mg/dl Magnesium 2.2 (1.8-2.4) mg/dl Total Bilirubin 6.1 H D (0.2-1) mg/dl AST 254 H (15-37) U/L ALT 244 H (12-78) U/L Alkaline Phosphatase 69 (45-117) U/L Troponin I (0-0.045) ng/ml Total Protein 5.6 L D (6.4-8.2) gm/dl Albumin 2.7 L (3.4-5.0) gm/dl Globulin 2.9 (2.5-4.0) gm/dl Albumin/Globulin Ratio 0.9 (0.9-2) Lipase 534 H (73-393) U/L Urine Color Dark Yellow Urine Appearance Clear (Clear) Urine pH 5.0 (4.5-7.5) Ur Specific [place] > 1.045 H (1.000-1.030) Urine Protein Negative (Negative) Urine Glucose (UA) Negative (Negative) Urine Ketones Negative (Negative) Urine Blood Negative (Negative) Urine Nitrite Negative (Negative) Urine Bilirubin 1+ H (Negative) Urine Urobilinogen Negative (Negative) Ur Leukocyte Esterase Negative (Negative) COVID-19 Eval Order SARS-CoV-2 (PCR) (Negative) 02/28/21 02/28/21 02/28/21 Range/Units Unknown Unknown 18:02 WBC (4.8-10.8) K/uL RBC (4.7-6.1) M/uL Hgb (14.0-18.0) g/dL Hct (42-52) % MCV (80-100) fL MCH (25-34) pg MCHC (32-36) g/dL RDW Std Deviation (36.4-46.3) fL RDW Coeff of Francine (11.5-14.5) % Plt Count (130-400) K/uL MPV (7.4-10.4) fL Immature Gran % (Auto) % Neut % (Auto) % Lymph % (Auto) % [place]he % (Auto) % Eos % (Auto) % Baso % (Auto) % Neut # (Auto) (1.4-6.5) K/uL Lymph # (Auto) (1.2-3.4) K/uL Ashe # (Auto) (0.11-0.59) K/uL Eos # (Auto) (0-0.5) K/uL Baso # (Auto) (0-0.2) K/uL Immature Gran # (Auto) (0.00-0.02) K/uL RBC Morphology PT (9.0-12.0) Seconds INR (0.9-1.1) APTT (21.0-31.0) Seconds PTT Ratio Sodium 140 (136-145) mmol/L Potassium 3.9 (3.5-5.1) mmol/L Chloride 107 (98-107) mmol/L Carbon Dioxide 26 (21-32) mmol/L Anion Gap 7.0 (3-11) BUN 16 (7-18) mg/dl Creatinine 1.19 (0.6-1.4) mg/dl Est Cr Clr Drug Dosing Not Reportable Est GFR ( Amer) 67.4 ml/min Est GFR (Non-Af Amer) 58.2 ml/min BUN/Creatinine Ratio 13.2 (10-20) Glucose 127 H (70-99) mg/dl Calcium 9.6 (8.5-10.1) mg/dl Magnesium (1.8-2.4) mg/dl Total Bilirubin 3.9 H (0.2-1) mg/dl AST 227 H (15-37) U/L ALT 188 H (12-78) U/L Alkaline Phosphatase 98 (45-117) U/L Troponin I < 0.015 (0-0.045) ng/ml Total Protein 7.6 (6.4-8.2) gm/dl Albumin 3.8 (3.4-5.0) gm/dl Globulin 3.8 (2.5-4.0) gm/dl Albumin/Globulin Ratio 1.0 (0.9-2) Lipase 3113 H (73-393) U/L Urine Color Urine Appearance (Clear) Urine pH (4.5-7.5) Ur Specific [place] (1.000-1.030) Urine Protein (Negative) Urine Glucose (UA) (Negative) Urine Ketones (Negative) Urine Blood (Negative) Urine Nitrite (Negative) Urine Bilirubin (Negative) Urine Urobilinogen (Negative) Ur Leukocyte Esterase (Negative) COVID-19 Eval Order Covid19 at [facility] SARS-CoV-2 (PCR) NEGATIVE (Negative) 02/28/21 02/28/21 Range/Units 18:02 18:02 WBC 9.75 (4.8-10.8) K/uL RBC 4.94 (4.7-6.1) M/uL Hgb 16.6 (14.0-18.0) g/dL Hct 50.2 (42-52) % MCV 101.6 H (80-100) fL MCH 33.6 (25-34) pg MCHC 33.1 (32-36) g/dL RDW Std Deviation 50.9 H (36.4-46.3) fL RDW Coeff of Francine 13.7 (11.5-14.5) % Plt Count 254 (130-400) K/uL MPV 9.8 (7.4-10.4) fL Immature Gran % (Auto) 0.2 % Neut % (Auto) 93.4 % Lymph % (Auto) 3.0 % [place]he % (Auto) 3.4 % Eos % (Auto) 0.0 % Baso % (Auto) 0.0 % Neut # (Auto) 9.11 H (1.4-6.5) K/uL Lymph # (Auto) 0.29 L (1.2-3.4) K/uL Ashe # (Auto) 0.33 (0.11-0.59) K/uL Eos # (Auto) 0.00 (0-0.5) K/uL Baso # (Auto) 0.00 (0-0.2) K/uL Immature Gran # (Auto) 0.02 (0.00-0.02) K/uL RBC Morphology PT 10.5 (9.0-12.0) Seconds INR 1.0 (0.9-1.1) APTT 25.3 (21.0-31.0) Seconds PTT Ratio 1.0 Sodium (136-145) mmol/L Potassium (3.5-5.1) mmol/L Chloride (98-107) mmol/L Carbon Dioxide (21-32) mmol/L Anion Gap (3-11) BUN (7-18) mg/dl Creatinine (0.6-1.4) mg/dl Est Cr Clr Drug Dosing Est GFR ( Amer) ml/min Est GFR (Non-Af Amer) ml/min BUN/Creatinine Ratio (10-20) Glucose (70-99) mg/dl Calcium (8.5-10.1) mg/dl Magnesium (1.8-2.4) mg/dl Total Bilirubin (0.2-1) mg/dl AST (15-37) U/L ALT (12-78) U/L Alkaline Phosphatase (45-117) U/L Troponin I (0-0.045) ng/ml Total Protein (6.4-8.2) gm/dl Albumin (3.4-5.0) gm/dl Globulin (2.5-4.0) gm/dl Albumin/Globulin Ratio (0.9-2) Lipase (73-393) U/L Urine Color Urine Appearance (Clear) Urine pH (4.5-7.5) Ur Specific [place] (1.000-1.030) Urine Protein (Negative) Urine Glucose (UA) (Negative) Urine Ketones (Negative) Urine Blood (Negative) Urine Nitrite (Negative) Urine Bilirubin (Negative) Urine Urobilinogen (Negative) Ur Leukocyte Esterase (Negative) COVID-19 Eval Order SARS-CoV-2 (PCR) (Negative) Diagnostic Findings Abdomen/Pelvis CT 02/28/21 17:45 CT SCAN OF THE ABDOMEN AND PELVIS WITH IV CONTRAST CLINICAL HISTORY: Vomiting. COMPARISON STUDY: Lumbar spine radiographs dated 08/25/2017. TECHNIQUE: Following the IV administration of 94 cc of Optiray 320, CT scan of the abdomen and pelvis is performed from the lung bases to the proximal femora. Images are reviewed in the axial, sagittal, and coronal planes. IV contrast was administered without complication. A dose lowering technique was utilized adhering to the principles of ALARA. CT DOSE: 533.24 mGy.cm FINDINGS: Lung bases: The heart is top normal in size and without pericardial effusion. There are coronary artery calcifications. A moderate hiatal hernia is noted. The lung bases are clear noting bibasilar scarring/atelectasis. Liver: The contrast-enhanced liver is normal in size, contour, and attenuation. There is no intrahepatic biliary ductal dilatation. The hepatic veins and portal veins are patent. Mild periportal edema is noted. Gallbladder: There are numerous calcified gallstones. The gallbladder is distended, with wall thickening and hyperemia. Pericholecystic stranding is observed. Spleen: Normal in size and attenuation. Pancreas: Unremarkable. Adrenal glands: Unremarkable. Kidneys: The contrast enhanced kidneys demonstrate cortical atrophy and are without hydronephrosis. The kidneys enhance symmetrically. Abdominal vasculature: The abdominal aorta is normal in course and caliber noting moderate to advanced atherosclerotic calcification. Bowel: There is moderate colonic diverticulosis without CT evidence of acute diverticulitis. No bowel obstruction is seen. A duodenal diverticulum is incidentally noted. Question nodular wall thickening of the second portion of the duodenum, best seen on axial image #181. The appendix is well-visualized and normal. Peritoneum: There is no intraperitoneal free air or abdominal ascites. Lymphadenopathy: None. Pelvic viscera: The prostate gland is mildly enlarged and heterogeneous. The bladder is distended. Bladder wall appears mildly thickened and trabeculated indicating chronic outlet obstruction. There are small bilateral fat-containing inguinal hernias, right larger than left. Skeletal structures: The skeletal structures are osteopenic. There are healed left-sided rib fractures. Moderate lumbosacral spondylosis is observed. No lytic or blastic lesions are seen. IMPRESSION: 1. Cholelithiasis with acute cholecystitis. 2. There is no intra or extrahepatic biliary ductal dilatation. 3. Question nodular wall thickening of the second portion of the duodenum. This is of indeterminant significance and may represent redundant mucosa. Consider correlation with endoscopy to assess for underlying mass lesion. 4. Moderate colonic diverticulosis without CT evidence of acute diverticulitis. 5. Hiatal hernia. 6. Additional findings as above. ACT 112: Positive. There are findings on this exam that require communication between the performing entity and the patient following Patient Test Result Information Act ([place] Act 112) guidelines. Electronically signed by: Romeo Fiore M.D. 02/28/2021 6:52 PM Chest X-Ray 02/28/21 23:37 SINGLE VIEW CHEST CLINICAL HISTORY: Hypoxia. FINDINGS: An AP, portable, upright chest radiograph is compared to study dated 11/14/2015. Correlation is made with abdominal CT dated 02/28/2021. The heart is top normal for projection. Question pulmonary vascular congestion. There is a small left pleural effusion with left basilar consolidation. This is new from yesterday's abdominal CT. Mild airspace opacities are seen at the right lung base. No pneumothorax is seen. The skeletal structures are osteopenic. The bony thorax is grossly intact. Fusion hardware is noted in the lower cervical spine. IMPRESSION: 1. Question pulmonary vascular congestion. 2. There is a left pleural effusion with left basilar consolidation. This is new from yesterday's abdominal CT. Correlate clinically for evidence of pneumonia/aspiration pneumonitis. Radiographic follow-up to resolution is recommended. ACT 112: Negative or not required by law. Electronically signed by: Romeo Fiore M.D. 03/01/2021 12:20 AM Chest CTA 03/01/21 00:17 CT ANGIOGRAM OF THE CHEST CLINICAL HISTORY: Hypoxia. COMPARISON STUDY: Chest x-ray dated 02/28/2021. Abdominal CT dated 02/28/2021. TECHNIQUE: Following the IV administration of 120 cc of Optiray 320, CT angiogram of the chest was performed from the upper abdomen to the thoracic inlet utilizing the pulmonary embolus protocol. Images are reviewed in the axial, sagittal, and coronal planes. 3-D MIPS images are created and assessed. IV contrast was administered without complication. A dose lowering technique was utilized adhering to the principles of ALARA. CT DOSE: 339.80 mGy.cm FINDINGS: Thyroid: Imaged portions of the thyroid gland are normal in size and attenuation. Thoracic aorta: There is mild atherosclerotic calcification of the thoracic aorta, which is normal in caliber and demonstrates 4-vessel very arch anatomy. No dissection is seen. Pulmonary vasculature: The main pulmonary arteries appear dilated suggesting pulmonary artery hypertension. There are no filling defects identified in main, lobar, or segmental pulmonary branches to suggest pulmonary embolus. Heart: The heart is top normal in size and without pericardial effusion. Lungs and pleural spaces: There is increasing dependent consolidation at both lung bases, left greater than right. There is trace left pleural effusion. Mild intralobular septal thickening is noted. The trachea and central airways appear clear. Mediastinum: There is no mediastinal lymphadenopathy. Alisson: Clear. Axillae: There is no axillary lymphadenopathy. Upper abdomen: Partially visualized upper abdominal viscera is within normal limits. Skeletal structures: The skeletal structures are osteopenic. No lytic or blastic bony lesions are seen. Fusion hardware is noted in the lower cervical spine. IMPRESSION: 1. There is no evidence of pulmonary embolus in the main, lobar, or segmental pulmonary arteries. 2. There is increasing airspace consolidation at both lung bases, left greater than right. This could represent progressive atelectasis versus an infectious/inflammatory pneumonitis. Clinical correlation will be required. 3. Trace left pleural effusion. 4. Mild intralobular septal thickening is noted. Correlate clinically for evidence of fluid overload/congestion. 5. Additional findings as above. ACT 112: Negative or not required by law. Electronically signed by: Romeo Fiore M.D. 03/01/2021 12:58 AM Cholangiopancreatography MRI 03/01/21 09:41 MRCP CLINICAL HISTORY: Cholelithiasis with acute cholecystitis TECHNIQUE: Utilizing a 1.5 Bette magnet and dedicated coil, multiplanar, multiecho imaging of the upper abdomen was performed utilizing heavily T2 weigh itzel pulsing sequences without IV contrast. COMPARISON STUDY: CT of the abdomen and pelvis February 28, 2021. FINDINGS: No biliary ductal dilatation is present. The common bile duct measures 4 mm in caliber. No common bile duct calculi are identified although sensitivity is diminished on this examination. There are numerous gallstones within the gallbladder. Gallbladder wall thickening is noted with pericholecystic fluid. This is increased since prior CT. There is no pancreatic ductal dilatation. There is no peripancreatic infiltration. There is no hydronephrosis. Unenhanced images of the liver, spleen and kidneys are unremarkable with exception of a cyst arising from the lower pole the right kidney. IMPRESSION: 1. No biliary ductal dilatation. No common bile duct calculi identified although sensitivity diminished on this exam given motion artifact. 2. Cholelithiasis. Increase in gallbladder wall thickening consistent with acute cholecystitis. ACT 112: Negative or not required by law. Electronically signed by: Felix Rubio M.D. 03/01/2021 4:21 PM Orbit X-Ray 03/01/21 14:00 ORBIT RADIOGRAPHS 3 VIEWS HISTORY: pre-MRI screening. COMPARISON: None. FINDINGS: There are no radiopaque foreign bodies identified within the orbits. IMPRESSION: No radiopaque foreign bodies identified within the orbits. ACT 112: Negative or not required by law. Electronically signed by: Felix Rubio M.D. 03/01/2021 3:04 PM Medications Administered Current Inpatient Medications Acetaminophen (Acetaminophen 325 Mg Tab) 650 mg PO Q4H PRN PRN Reason: Pain or Fever Stop: 03/31/21 01:45 Potassium Chloride/Sodium Chloride (Normal Saline W/20 Meq Kcl) 20 meq in 1,000 mls @ 100 mls/hr IV .Q10H NIGEL Stop: 03/31/21 02:29 Last Admin: 03/01/21 03:05 Dose: 100 mls/hr Documented by: Piperacillin Sod/Tazobactam (Sod 3.375 gm/ Dextrose) 115 mls @ 28.75 mls/hr IV Q8H NIGEL; Protocol Stop: 03/11/21 06:59 Last Admin: 03/01/21 06:37 Dose: 28.8 mls/hr Documented by: Miscellaneous Information (Piperacill/Tazobac Consult Active) 1 ea N/A UD PRN PRN Reason: Consult Stop: 03/31/21 01:45 Morphine Sulfate (Morphine Sulfate 2 Mg/Ml Carp) 2 mg IV Q4H PRN PRN Reason: Severe Pain Stop: 03/15/21 01:45 Ondansetron HCl (Ondansetron Inj 2 Mg/Ml 2 Ml Vial) 4 mg IV Q6H PRN PRN Reason: Nausea Stop: 03/31/21 01:45 Resident Activity Tracking Resident Involvement: Resident Care Provided Care Provided: Adult [facility]
--- NOTE | 2021-03-01 10:45 | Cardiology Consultation ---
Date of Consultation March 01, 2021 Assessment & Plan (1) Atrial fibrillation with rapid ventricular response: (2) Anticoagulant long-term use: 1. Paroxysmal atrial fibrillation: He clearly has atrial fibrillation, it was present when he was first evaluated emergency room and lasted for about 4 hours. I suspect also that it was present in May 2020 but cannot confirm it because an electrocardiogram was not done and he is asymptomatic. Usually atrial fibrillation is not a one-time event in the setting and I would treat it, at least until we do further studies, as an ongoing issue. He should have an echocardiogram to exclude structural heart disease and I will order that. He has not had a TSH and I would do that to exclude a thyroid issue, I will order that although I do not suspect that. We could consider long-term monitoring such as a 30-day monitor or even an implantable recorder although at the moment I do not see clear reason to do so, I think we do better to treat him for longstanding atrial fibrillation less a significant contraindication to anticoagulation develops. 2. Anticoagulation: Ideally he would be on an anticoagulant and over the long run we probably should consider that, with brief atrial fibrillation and now in sinus rhythm I think it is acceptable to hold off until his surgical evaluation is complete. If surgery is not anticipated I would start him on an anticoagulant, I prefer Eliquis and in his case that would be 5 mg twice a day. History of Present Illness Reason for Consultation: Paroxysmal atrial fibrillation Attending Physician: Ciro Cronin DO History of Present Illness This is a 80-year-old male with a history of bladder cancer, basal cell carcino ma of his face but no known cardiac history. He presented on February 28, 2021 with acute abdominal discomfort. He was observed to be in atrial fibrillation which has not been identified before. His heart rate was moderately elevated on presentation (around 100 bpm). Of note based on his vital sign record his heart rate was in that range in May 2020 as well but I do not see an electrocardiogram from that time so I he may have had atrial fibrillation then as well. His initial electrocardiogram on February 28, 2021 at 1802 does show atrial fibrillation with a heart rate of 103 bpm the most recent comparison to the electrocardiogram apparently was 2015 when he was in sinus rhythm. A repeat electrocardiogram done this morning at 0631 shows sinus rhythm at 84 bpm. Review of telemetry shows that he presented in atrial fibrillation with a very well controlled heart rate, he was in it for 4 hours before it stopped at 2200 without a postconversion pause and with essentially no change in heart rate. Troponin on arrival is undetectable. I discussed symptoms with him, he seems to have no symptoms at all of the atrial fibrillation and does not recall ever being told that he had it before. That may be because his heart rate is minimally elevated. He has not noticed any change in exercise ability other than during his recent presentation, and he does remain fairly active. He has had no lightheadedness, no dizziness, presyncope or syncope. 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 Prostate nodule Skin cancer Varicose veins with inflammation Surgical History No pertinent past surgical history Family History Denies family history of Hearing loss No family history of adverse response to anesthesia No family history of bleeding disorder Heart disease Allergies Cancer Hypertension Stroke Asthma Social History Smoking Status: Never smoker Tobacco Type: Cigarettes and Smokeless Tobacco (Dip or Chew) Second Hand Exposure: No; Hx Alcohol Use: No Hx Substance Use: No Preferred Language: Telugu Communication Ability: Effective 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 HEENT: Unremarkable Neck: No jugular venous distention, carotid pulses are normal and equal bilaterally without bruits. Pulmonary: Clear to auscultation bilaterally. Cardiac: Regular rhythm with no murmur, gallop or rub. Abdomen: Soft, nontender with normal bowel sounds. Extremities: No edema. Distal pulses intact. Neurologic: No focal findings. Gait is steady. Skin: No rash, ecchymoses or petechiae. Results & Data ([facility]) Vital Signs (Past 12 Hours) Vital Signs Temp Pulse Pulse Resp BP BP Pulse Ox 03/01/21 07:43 36.8 C 85 16 106/52 L 96 03/01/21 07:00 82 03/01/21 04:19 82 03/01/21 02:01 37.1 C 94 H 14 127/78 97 03/01/21 01:58 37.1 C 94 H 14 127/78 97 03/01/21 01:21 90 14 96/44 L 96 03/01/21 00:22 99 H 16 93/45 L 97 Pulse Ox 03/01/21 07:43 03/01/21 07:00 03/01/21 04:19 03/01/21 02:01 03/01/21 01:58 97 03/01/21 01:21 03/01/21 00:22 Laboratory Results Cardiac Enzymes 02/28/21 03/01/21 Range/Units 18:02 07:48 AST 227 H 254 H (15-37) U/L Troponin I < 0.015 (0-0.045) ng/ml Coagulation 02/28/21 Range/Units 18:02 PT 10.5 (9.0-12.0) Seconds APTT 25.3 (21.0-31.0) Seconds CBC 02/28/21 03/01/21 Range/Units 18:02 07:48 WBC 9.75 11.95 H (4.8-10.8) K/uL RBC 4.94 4.00 L (4.7-6.1) M/uL Hgb 16.6 13.3 L D (14.0-18.0) g/dL Hct 50.2 41.1 L (42-52) % Plt Count 254 211 (130-400) K/uL Neut # (Auto) 9.11 H 9.21 H (1.4-6.5) K/uL Lymph # (Auto) 0.29 L 0.98 L (1.2-3.4) K/uL [place] # (Auto) 0.33 1.70 H (0.11-0.59) K/uL Eos # (Auto) 0.00 0.01 (0-0.5) K/uL Baso # (Auto) 0.00 0.01 (0-0.2) K/uL Comprehensive Metabolic Panel 02/28/21 03/01/21 Range/Units 18:02 07:48 Sodium 140 143 (136-145) mmol/L Potassium 3.9 4.2 (3.5-5.1) mmol/L Chloride 107 110 H (98-107) mmol/L Carbon Dioxide 26 28 (21-32) mmol/L BUN 16 13 (7-18) mg/dl Creatinine 1.19 1.18 (0.6-1.4) mg/dl Glucose 127 H 119 H (70-99) mg/dl Calcium 9.6 8.3 L (8.5-10.1) mg/dl AST 227 H 254 H (15-37) U/L ALT 188 H 244 H (12-78) U/L Alkaline Phosphatase 98 69 (45-117) U/L Total Protein 7.6 5.6 L D (6.4-8.2) gm/dl Albumin 3.8 2.7 L (3.4-5.0) gm/dl Intake and Output 02/28/21 03/01/21 03/01/21 22:59 06:59 14:59 Intake Total 1120 / 2235 1115 / 2235 115 / 115 Balance 1120 / 2235 1115 / 2235 115 / 115 Intake: IV 1120 / 2235 1115 / 2235 115 / 115 Piperacillin/Tazobactam 3.375 115 / 115 115 / 115 gm In Dextrose 5% 100 ml @ 28. 75 mls/hr IV Q8H [facility] Rx#: [id number] Piperacillin/Tazobactam 4.5 gm 120 / 120 In 120 ml @ 240 mls/hr IV NOW ONE Rx#:[id number] Sodium Chloride 0.9% 1000ML 1, 1000 / 1999 1000 / 2000 000 ml @ 999 mls/hr IV .Q1H1M ONE Rx#:[id number] Other: Other Intake Source NPO Weight 0 g 80.1 kg Weight Measurement Method Standing Scale Diagnostic Findings Telemetry: I reviewed his telemetry and he had rate controlled atrial fibrillation from time of see his presentation to about 2200 (4 hours). He has had none since. PG Care Time/CCT Total # of Minutes Spent Total Time Spent with Patient: Total time spent is greater than 50% in co ordination of care (as documented) at patient's floor/unit and/or counseling patient: Coding Level of Care Code 68652 Initial Inpt Care Lvl 3 Diagnoses Atrial fibrillation with rapid ventricular response I48.91 Anticoagulant long-term use Z79.01
--- NOTE | 2021-03-01 13:13 | Surgery Consultation ---
Date of Consultation March 01, 2021 Assessment & Plan (1) Acute gallstone pancreatitis: Gallstone pancreatitis/cholangitis with TB currently 6 GI consult for ERCP Agree with abx Possible lap magda this hospitalization; doubt acute cholecystitis as finding more consistent with pancreatitis and unlikely stone obstructing cystic duct History of Present Illness Attending Physician: Ciro Cronin DO History of Present Illness This is 80-year-old male who was seen in ED for an evaluation of abdominal pain. He had severe periumbilical and upper quadrant abdominal pain, with episodes of nausea vomiting. He has never had similar symptoms in the past and did not know he had gallstones. He denies fevers, chills, chest pain or difficulty breathing. A Ct scan shows gallstone pancreatitis along with elevation of his LFTs c/w possible cholangitis. 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 Prostate nodule Skin cancer Varicose veins with inflammation Surgical History No pertinent past surgical history Family History Denies family history of Hearing loss No family history of adverse response to anesthesia No family history of bleeding disorder Heart disease Allergies Cancer Hypertension Stroke Asthma Social History Smoking Status: Never smoker Tobacco Type: Cigarettes and Smokeless Tobacco (Dip or Chew) Second Hand Exposure: No; Hx Alcohol Use: No Hx Substance Use: No Preferred Language: Italian Communication Ability: Effective 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 Beliefs That Will Affect Care: None marital status: / Current Living Situation: Alone current occupational status: retired Feels Safe at Home: Yes Assistive Devices: None Review of Systems Constitutional: + fatigue and + anorexia; no fever and no chills Eyes: no problem reported Ear, Nose, Mouth, Throat: no problem reported Respiratory: no cough and no dyspnea Cardiovascular: no chest pain Gastrointestinal: + abdominal pain; no nausea, no vomiting and no change in bowel habits Genitourinary: no dysuria Musculoskeletal: + back pain; no neck pain Integumentary: no problem reported Neurologic: no localized weakness and no generalized weakness Psychiatric: no behavioral changes and no depression Endocrine: no fatigue Hematologic / Lymphatic: no easy bleeding and no easy bruising Physical Exam Constitutional: well developed and well nourished; no acute distress Eyes: + scleral abnormality and PERRL; sclerae not anicteric ENMT: external ear and nose normal, oropharynx normal Neck: trachea midline Respiratory: normal respiratory effort, lungs clear to auscultation Gastrointestinal (Abdomen): Inspection/Auscultation: abdomen normal to inspection and normal bowel sounds; abdomen not distended Percussion/Palpation: + abdomen tender (Minimal) and abdomen soft; no guarding, abdomen not rigid and no hernia Musculoskeletal: Head/Neck/Chest: + abnormal head shape and + evidence of head trauma Skin: no rashes, warm and dry + jaundice Psychiatric: Orientation: alert and oriented x 3 Lymphatic: no cervical or axillary lymphadenopathy Results & Data ([facility]) Vital Signs (Past 12 Hours) Vital Signs Temp Pulse Pulse Resp BP BP Pulse Ox 03/01/21 11:29 37.6 C H 81 16 106/68 100 03/01/21 07:43 36.8 C 85 16 106/52 L 96 03/01/21 07:00 82 03/01/21 04:19 82 03/01/21 02:01 37.1 C 94 H 14 127/78 97 03/01/21 01:58 37.1 C 94 H 14 127/78 97 03/01/21 01:21 90 14 96/44 L 96 Pulse Ox 03/01/21 11:29 03/01/21 07:43 03/01/21 07:00 03/01/21 04:19 03/01/21 02:01 03/01/21 01:58 97 03/01/21 01:[address] SCAN OF THE ABDOMEN AND PELVIS WITH IV CONTRAST CLINICAL HISTORY: Vomiting. COMPARISON STUDY: Lumbar spine radiographs dated 08/25/2017. TECHNIQUE: Following the IV administration of 94 cc of Optiray 320, CT scan of the abdomen and pelvis is performed from the lung bases to the proximal femora. Images are reviewed in the axial, sagittal, and coronal planes. IV contrast was administered without complication. A dose lowering technique was utilized adhering to the principles of ALARA. CT DOSE: 533.24 mGy.cm FINDINGS: Lung bases: The heart is top normal in size and without pericardial effusion. There are coronary artery calcifications. A moderate hiatal hernia is noted. The lung bases are clear noting bibasilar scarring/atelectasis. Liver: The contrast-enhanced liver is normal in size, contour, and attenuation. There is no intrahepatic biliary ductal dilatation. The hepatic veins and portal veins are patent. Mild periportal edema is noted. Gallbladder: There are numerous calcified gallstones. The gallbladder is distended, with wall thickening and hyperemia. Pericholecystic stranding is observed. Spleen: Normal in size and attenuation. Pancreas: Unremarkable. Adrenal glands: Unremarkable. Kidneys: The contrast enhanced kidneys demonstrate cortical atrophy and are without hydronephrosis. The kidneys enhance symmetrically. Abdominal vasculature: The abdominal aorta is normal in course and caliber noting moderate to advanced atherosclerotic calcification. Bowel: There is moderate colonic diverticulosis without CT evidence of acute diverticulitis. No bowel obstruction is seen. A duodenal diverticulum is incidentally noted. Question nodular wall thickening of the second portion of the duodenum, best seen on axial image #181. The appendix is well-visualized and normal. Peritoneum: There is no intraperitoneal free air or abdominal ascites. Lymphadenopathy: None. Pelvic viscera: The prostate gland is mildly enlarged and heterogeneous. The bladder is distended. Bladder wall appears mildly thickened and trabeculated indicating chronic outlet obstruction. There are small bilateral fat-containing inguinal hernias, right larger than left. Skeletal structures: The skeletal structures are osteopenic. There are healed left-sided rib fractures. Moderate lumbosacral spondylosis is observed. No lytic or blastic lesions are seen. IMPRESSION: 1. Cholelithiasis with acute cholecystitis. 2. There is no intra or extrahepatic biliary ductal dilatation. 3. Question nodular wall thickening of the second portion of the duodenum. This is of indeterminant significance and may represent redundant mucosa. Consider correlation with endoscopy to assess for underlying mass lesion. 4. Moderate colonic diverticulosis without CT evidence of acute diverticulitis. 5. Hiatal hernia. 6. Additional findings as above.
--- NOTE | 2021-03-01 15:06 | XRay Report ---
ORBIT RADIOGRAPHS 3 VIEWS HISTORY: pre-MRI screening. COMPARISON: None. FINDINGS: There are no radiopaque foreign bodies identified within the orbits. IMPRESSION: No radiopaque foreign bodies identified within the orbits. ACT 112: Negative or not required by law. Electronically signed by: Felix Rubio M.D. 03/01/2021 3:04 PM
--- NOTE | 2021-03-01 15:47 | XCELERA ---
[id number]
--- NOTE | 2021-03-01 16:22 | Magnetic Resonance Report ---
MRCP CLINICAL HISTORY: Cholelithiasis with acute cholecystitis TECHNIQUE: Utilizing a 1.5 Bette magnet and dedicated coil, multiplanar, multiecho [facility] er abdomen was performed utilizing heavily T2 weighted pulsing sequences without IV contrast. COMPARISON STUDY: CT of the abdomen and pelvis February 28, 2021. FINDINGS: No biliary ductal dilatation is present. The common bile duct measures 4 mm in caliber. No common bile duct calculi are identified although sensitivity is diminished on this examination. There are numerous gallstones within the gallbladder. Gallbladder wall thickening is noted with pericholec ystic fluid. This is increased since prior CT. There is no pancreatic ductal dilatation. There is no peripancreatic infiltration. There is no hydronephrosis. Unenhanced images of the liver, spleen and k idneys are unremarkable with exception of a cyst arising from the lower pole the right kidney. IMPRESSION: 1. No biliary ductal dilatation. No common bile duct calculi identified although sensitivity diminish ed on this exam given motion artifact. 2. Cholelithiasis. Increase in gallbladder wall thickening consistent with acute cholecystitis. ACT 112: Negative or not required by law. Electronically signed by: Felix Rubio M.D. 03/01/2021 4:21 PM
--- NOTE | 2021-03-01 18:04 | Billing Data ---
Date of Service March 01, 2021 Coding Level of Care Code 03544 Subseq Hosp Care Lvl 3
[2021-03-02] MEDS: PIPERACILLIN/TAZOBACTAM 3.375 GM in DEXTROSE 5% 100 ML IV SCH ×3 (05:49→21:58)
[2021-03-02 06:31] LABS: Basophils # (auto) 0.01 K/uL (0-0.2); Basophils % (auto) 0.1 %; Eosinophils # (auto) 0.05 K/uL (0-0.5); Eosinophils % (auto) 0.7 %; Hematocrit (blood only) 41.4 % (42-52); Hemoglobin 13.1 g/dL (14.0-18.0); Lymphocytes # (auto) 0.97 K/uL (1.2-3.4); Lymphocytes % (auto) 14.1 %; Mean Corpuscular Hemoglobin 32.8 pg (25-34); Mean Corpuscular Hgb Conc 31.6 g/dL (32-36); Mean Corpuscular Volume 103.8 fL (80-100); Mean Platelet Volume 10.2 fL (7.4-10.4); Monocytes # (auto) 0.92 K/uL (0.11-0.59); Monocytes % (auto) 13.4 %; Neutrophils # (auto) 4.93 K/uL (1.4-6.5); Neutrophils % (auto) 71.7 %; Platelet Count 200 K/uL (130-400); RDW Coefficient of Variation 14.2 % (11.5-14.5); RDW Standard Deviation 54.3 fL (36.4-46.3); Red Blood Count 3.99 M/uL (4.7-6.1); White Blood Count 6.88 K/uL (4.8-10.8)
--- NOTE | 2021-03-02 06:45 | Hospitalist Progress Note ---
Date of Service March 02, 2021 Assessment & Plan (1) Acute cholecystitis: Plan: 1) Acute Cholecystitis with cholilithiasis - CT abd/pelvis 02/28 demonstrating Cholelithiasis with acute cholecystitis, Question nodular wall thickening of the second portion of the duodenum - WBC elevated 9.75 --> 11.95 --> 6.88 (03/02) - MRCP 03/01 demonstrated cholelithiasis, Increase in gallbladder wall thickening consistent with acute cholecystitis, no biliary ductal dilation, no common bile duct dilation - surgery performed cholecystectomy 03/02, GI performed ERCP 03/02 no ductal dilation identified common bile duct stent in place - continue pip/tazo abx, IVF - diet clear fluids advance as tolerated - PRN morphine, oxycodone for pain control 3) Pneumonia w/ L parapneumonic effusion - CT chest 03/01 demonstrates: There is increasing airspace consolidation at both lung bases, left greater than right. This could represent progressive atelectasis versus an infectious/inflammatory pneumonitis. Trace left pleural effusion. Mild intralobular septal thickening is noted. Correlate clinically for evidence of fluid overload/congestion. - WBC elevated at 11.95 -->6.88 (03/02) - admit pulse ox 76% RA, currently 96% on 3L NC post op - continue pip/tazo abx 4) Paroxysmal Atrial Fibrillation - one episode of atrial fibrillation noted on EKG on 02/28, currently no longer present on EKG 03/01 - troponins on arrival negative - CT chest 03/01 of normal size, no pericardial effusion, The main pulmonary arteries appear dilated suggesting pulmonary artery hypertension - cardiology consulted, suggest anticoagulation eliquie 5mg BID, hold off until surgery eval complete - echo 03/01 LVEF 55-60%, mild concentric LVH, mild mitral valve regurge, aortic valve sclerosis without stenosis 2) Acute Gallstone Pancreatitis - Lipase elevated 3113 --> 534 (03/01) - CT abd/pelvis 02/28 demonstrating pancreas unremarkable, Question nodular wall thickening of the second portion of the duodenum - monitor for post-op pancreatitis 5) Wall thickening in Duodenum - CT abd/pelvis 02/28 demonstrating Question nodular wall thickening of the second portion of the duodenum. This is of indeterminant significance and may represent redundant mucosa. Consider correlation with endoscopy to assess for underlying mass lesion. - GI performed ERCP 03/02 duodenum unremarked (2) Acute gallstone pancreatitis: (3) Abdominal pain, acute, epigastric: (4) Atrial fibrillation with rapid ventricular response: (5) Pneumonia: Admission and Anticipated Discharge Date Admission Date: February 28, 2021 Supervising Physician Co-Signing Physician Notes I personally examined the patient and verified all bosch points of history and exam, discussed case, and agree with decision making with Dr Kothari. Seen postop. Discussed with surgery. Family at bedsideupdated the best my ability. Vitals noted, resting/sleeping postop no distress. HEENT normocephalic atraumatic mucous membranes moist. Breathing unlabored no accessory muscle use good effort. Skin shows no rashes no pallor or icterus. No focal neuro deficits at rest. Cholecystitis/choledocholithiasisnow improved status post ERCP and cholecystectomy. Continue antibiotics and supportive care for now. Pneumoniaantibiotics as above, minimally symptomatic, but seems fairly clearly notable on CT. otherwise as above Subjective 80 yo Male with acute cholecystitis, seen at bedside doing well, calm cooperative pleasant. He no longer has pain on palpation to abdomen. He was scheduled to have ERCP and cholecystectomy performed today. Patient states he does not want to feel this kind of pain occur again. He slept well voiding well has not passed stool. Patient seen in afternoon post op, asleep. Review of Systems Review of Systems: Negative fever chills Negative headache dizziness Negative chest pain palpitations SOB Negative nausea vomitting diarrhea constipation Negative numbness tingling rash swelling Physical Exam Physical Exam: General: Well appearing, age appropriate Heart: RRR, +S1 S2, no murmurs/gallops/rubs Lungs: cta b/l, no wheezes/rales/rhonchi Abd: soft, NT/ND, +BS Extremities: no swelling, no rashes Results & Data Results & Data ([facility]) Vital Signs (Past 12 Hours) Vital Signs Temp Pulse Pulse Resp BP BP Pulse Ox 03/02/21 03:10 93 03/02/21 03:01 37 C 83 20 126/74 87 L 03/02/21 02:43 71 03/01/21 22:40 36.7 C 82 16 118/73 91 03/01/21 19:33 36.8 C 63 18 112/72 92 Laboratory Results 08/22/21 08/22/21 08/22/21 Range/Units 09:28 05:54 05:54 WBC 6.88 (4.8-10.8) K/uL RBC 3.99 L (4.7-6.1) M/uL Hgb 13.1 L (14.0-18.0) g/dL Hct 41.4 L (42-52) % MCV 103.8 H (80-100) fL MCH 32.8 (25-34) pg MCHC 31.6 L (32-36) g/dL RDW Std Deviation 54.3 H (36.4-46.3) fL RDW Coeff of Francine 14.2 (11.5-14.5) % Plt Count 200 (130-400) K/uL MPV 10.2 (7.4-10.4) fL Immature Gran % (Auto) 0.0 % Neut % (Auto) 71.7 % Lymph % (Auto) 14.1 % [place] % (Auto) 13.4 % Eos % (Auto) 0.7 % Baso % (Auto) 0.1 % Neut # (Auto) 4.93 (1.4-6.5) K/uL Lymph # (Auto) 0.97 L (1.2-3.4) K/uL [place] # (Auto) 0.92 H (0.11-0.59) K/uL Eos # (Auto) 0.05 (0-0.5) K/uL Baso # (Auto) 0.01 (0-0.2) K/uL Immature Gran # (Auto) 0.00 (0.00-0.02) K/uL Sodium 144 (136-145) mmol/L Potassium 3.9 (3.5-5.1) mmol/L Chloride 110 H (98-107) mmol/L Carbon Dioxide 27 (21-32) mmol/L Anion Gap 8.0 (3-11) BUN 11 (7-18) mg/dl Creatinine 0.90 (0.6-1.4) mg/dl Est Cr Clr Drug Dosing 67.6 ml/min Est GFR ( Amer) 94.5 ml/min Est GFR (Non-Af Amer) 81.5 ml/min BUN/Creatinine Ratio 11.7 (10-20) Glucose 77 (70-99) mg/dl Calcium 8.4 L (8.5-10.1) mg/dl Magnesium 2.4 (1.8-2.4) mg/dl Total Bilirubin 6.7 H (0.2-1) mg/dl AST 145 H (15-37) U/L ALT 186 H (12-78) U/L Alkaline Phosphatase 84 (45-117) U/L Total Protein 5.6 L (6.4-8.2) gm/dl Albumin 2.6 L (3.4-5.0) gm/dl Globulin 3.0 (2.5-4.0) gm/dl Albumin/Globulin Ratio 0.9 (0.9-2) Vitamin B12 955 (193-986) pg/ml Folate > 20.00 (>5.38) ng/ml Diagnostic Findings Abdomen/Pelvis CT 02/28/21 17:45 CT SCAN OF THE ABDOMEN AND PELVIS WITH IV CONTRAST CLINICAL HISTORY: Vomiting. COMPARISON STUDY: Lumbar spine radiographs dated 08/25/2017. TECHNIQUE: Following the IV administration of 94 cc of Optiray 320, CT scan of the abdomen and pelvis is performed from the lung bases to the proximal femora. Images are reviewed in the axial, sagittal, and coronal planes. IV contrast was administered without complication. A dose lowering technique was utilized adhering to the principles of ALARA. CT DOSE: 533.24 mGy.cm FINDINGS: Lung bases: The heart is top normal in size and without pericardial effusion. There are coronary artery calcifications. A moderate hiatal hernia is noted. The lung bases are clear noting bibasilar scarring/atelectasis. Liver: The contrast-enhanced liver is normal in size, contour, and attenuation. There is no intrahepatic biliary ductal dilatation. The hepatic veins and portal veins are patent. Mild periportal edema is noted. Gallbladder: There are numerous calcified gallstones. The gallbladder is distended, with wall thickening and hyperemia. Pericholecystic stranding is observed. Spleen: Normal in size and attenuation. Pancreas: Unremarkable. Adrenal glands: Unremarkable. Kidneys: The contrast enhanced kidneys demonstrate cortical atrophy and are without hydronephrosis. The kidneys enhance symmetrically. Abdominal vasculature: The abdominal aorta is normal in course and caliber noting moderate to advanced atherosclerotic calcification. Bowel: There is moderate colonic diverticulosis without CT evidence of acute diverticulitis. No bowel obstruction is seen. A duodenal diverticulum is incidentally noted. Question nodular wall thickening of the second portion of the duodenum, best seen on axial image #181. The appendix is well-visualized and normal. Peritoneum: There is no intraperitoneal free air or abdominal ascites. Lymphadenopathy: None. Pelvic viscera: The prostate gland is mildly enlarged and heterogeneous. The bladder is distended. Bladder wall appears mildly thickened and trabeculated indicating chronic outlet obstruction. There are small bilateral fat-containing inguinal hernias, right larger than left. Skeletal structures: The skeletal structures are osteopenic. There are healed left-sided rib fractures. Moderate lumbosacral spondylosis is observed. No lytic or blastic lesions are seen. IMPRESSION: 1. Cholelithiasis with acute cholecystitis. 2. There is no intra or extrahepatic biliary ductal dilatation. 3. Question nodular wall thickening of the second portion of the duodenum. This is of indeterminant significance and may represent redundant mucosa. Consider correlation with endoscopy to assess for underlying mass lesion. 4. Moderate colonic diverticulosis without CT evidence of acute diverticulitis. 5. Hiatal hernia. 6. Additional findings as above. ACT 112: Positive. There are findings on this exam that require communication between the performing entity and the patient following Patient Test Result Information Act ([place] Act 112) guidelines. Electronically signed by: Romeo Fiore M.D. 02/28/2021 6:52 PM Chest X-Ray 02/28/21 23:37 SINGLE VIEW CHEST CLINICAL HISTORY: Hypoxia. FINDINGS: An AP, portable, upright chest radiograph is compared to study dated 11/14/2015. Correlation is made with abdominal CT dated 02/28/2021. The heart is top normal for projection. Question pulmonary vascular congestion. There is a small left pleural effusion with left basilar consolidation. This is new from yesterday's abdominal CT. Mild airspace opacities are seen at the right lung base. No pneumothorax is seen. The skeletal structures are osteopenic. The bony thorax is grossly intact. Fusion hardware is noted in the lower cervical spine. IMPRESSION: 1. Question pulmonary vascular congestion. 2. There is a left pleural effusion with left basilar consolidation. This is new from yesterday's abdominal CT. Correlate clinically for evidence of pneumonia/aspiration pneumonitis. Radiographic follow-up to resolution is recommended. ACT 112: Negative or not required by law. Electronically signed by: Romeo Fiore M.D. 03/01/2021 12:20 AM Chest CTA 03/01/21 00:17 CT ANGIOGRAM OF THE CHEST CLINICAL HISTORY: Hypoxia. COMPARISON STUDY: Chest x-ray dated 02/28/2021. Abdominal CT dated 02/28/2021. TECHNIQUE: Following the IV administration of 120 cc of Optiray 320, CT angiogram of the chest was performed from the upper abdomen to the thoracic inlet utilizing the pulmonary embolus protocol. Images are reviewed in the axial, sagittal, and coronal planes. 3-D MIPS images are created and assessed. IV contrast was administered without complication. A dose lowering technique was utilized adhering to the principles of ALARA. CT DOSE: 339.80 mGy.cm FINDINGS: Thyroid: Imaged portions of the thyroid gland are normal in size and attenuation. Thoracic aorta: There is mild atherosclerotic calcification of the thoracic aorta, which is normal in caliber and demonstrates 4-vessel very arch anatomy. No dissection is seen. Pulmonary vasculature: The main pulmonary arteries appear dilated suggesting pulmonary artery hypertension. There are no filling defects identified in main, lobar, or segmental pulmonary branches to suggest pulmonary embolus. Heart: The heart is top normal in size and without pericardial effusion. Lungs and pleural spaces: There is increasing dependent consolidation at both lung bases, left greater than right. There is trace left pleural effusion. Mild intralobular septal thickening is noted. The trachea and central airways appear clear. Mediastinum: There is no mediastinal lymphadenopathy. Alisson: Clear. Axillae: There is no axillary lymphadenopathy. Upper abdomen: Partially visualized upper abdominal viscera is within normal limits. Skeletal structures: The skeletal structures are osteopenic. No lytic or blastic bony lesions are seen. Fusion hardware is noted in the lower cervical spine. IMPRESSION: 1. There is no evidence of pulmonary embolus in the main, lobar, or segmental pulmonary arteries. 2. There is increasing airspace consolidation at both lung bases, left greater than right. This could represent progressive atelectasis versus an infectiou s/inflammatory pneumonitis. Clinical correlation will be required. 3. Trace left pleural effusion. 4. Mild intralobular septal thickening is noted. Correlate clinically for evidence of fluid overload/congestion. 5. Additional findings as above. ACT 112: Negative or not required by law. Electronically signed by: Romeo Fiore M.D. 03/01/2021 12:58 AM Cholangiopancreatography MRI 03/01/21 09:41 MRCP CLINICAL HISTORY: Cholelithiasis with acute cholecystitis TECHNIQUE: Utilizing a 1.5 Bette magnet and dedicated coil, multiplanar, multiecho imaging of the upper abdomen was performed utilizing heavily T2 weighted pulsing sequences without IV contrast. COMPARISON STUDY: CT of the abdomen and pelvis February 28, 2021. FINDINGS: No biliary ductal dilatation is present. The common bile duct measures 4 mm in caliber. No common bile duct calculi are identified although sensitivity is diminished on this examination. There are numerous gallstones within the gallbladder. Gallbladder wall thickening is noted with pericholecystic fluid. This is increased since prior CT. There is no pancreatic ductal dilatation. There is no peripancreatic infiltration. There is no hydronephrosis. Unenhanced images of the liver, spleen and kidneys are unremarkable with exception of a cyst arising from the lower pole the right kidney. IMPRESSION: 1. No biliary ductal dilatation. No common bile duct calculi identified although sensitivity diminished on this exam given motion artifact. 2. Cholelithiasis. Increase in gallbladder wall thickening consistent with acute cholecystitis. ACT 112: Negative or not required by law. Electronically signed by: Felix Rubio M.D. 03/01/2021 4:21 PM Orbit X-Ray 03/01/21 14:00 ORBIT RADIOGRAPHS 3 VIEWS HISTORY: pre-MRI screening. COMPARISON: None. FINDINGS: There are no radiopaque foreign bodies identified within the orbits. IMPRESSION: No radiopaque foreign bodies identified within the orbits. ACT 112: Negative or not required by law. Electronically signed by: Felix Rubio M.D. 03/01/2021 3:04 PM Abdomen Ultrasound 03/01/21 17:52 ULTRASOUND RIGHT UPPER QUADRANT ABDOMEN CLINICAL HISTORY: Acute cholecystitis. COMPARISON STUDY: Abdominal CT dated 02/28/2021. MRCP dated 03/01/2021. TECHNIQUE: Real-time, grayscale, and color flow sonography of the right upper quadrant of the abdomen was performed. Images are reviewed in the transverse and longitudinal planes. FINDINGS: Liver: The liver is normal in size and echotexture. There is no intrahepatic biliary ductal dilatation. The main portal vein is patent. The gallbladder is distended and filled with stones and sludge. The gallbladder wall is thickened and edematous measuring up to 6 mm. Trace pericholecystic fluid is noted. A sonographic Dickerson's sign is reportedly present. The common bile duct measures up to 0.4 cm in diameter. Pancreas: Visualized portions of the pancreatic head and body are normal in appearance. The splenic vein is patent. Right kidney: Survey images of the right kidney demonstrate cortical atrophy. Echotexture is normal. There is no hydronephrosis. Ascites: None. IMPRESSION: Cholelithiasis with acute cholecystitis. ACT 112: Negative or not required by law. Electronically signed by: Romeo Fiore M.D. 03/02/2021 8:05 AM Endo Retro Cholangiopancreatogram 03/02/21 00:00 INTRAOPERATIVE RADIOGRAPHS CLINICAL HISTORY: ERCP. Fluoroscopy time: 1 minute 37 seconds. FINDINGS: 8 spot fluoroscopic images of the right upper quadrant from an ERCP procedure are correlated with abdominal CT dated 02/28/2021. There is cannulation of the common bile duct which is then opacified with contrast. No definite intraluminal filling defects are identified to confirm choledocholithiasis. A balloon sweep of the common duct is performed. Contrast within the gallbladder outlines numerous gallstones. The final image shows a common bile duct stent in place. No significant intrahepatic ductal dilatation is identified. IMPRESSION: Intraoperative ERCP images as above. See operative report for detailed findings. Electronically signed by: Romeo Fiore M.D. 03/02/2021 5:14 PM Medications Administered Current Inpatient Medications Acetaminophen (Acetaminophen 325 Mg Tab) 650 mg PO Q4H PRN PRN Reason: Pain or Fever Stop: 03/31/21 01:45 Atropine Sulfate (Atropine Sulfate 0.1 Mg/Ml 10ml Syr) 0.5 mg IV Q1M PRN PRN Reason: PACU Use-HR<40 &/or Bradycardi Stop: 03/02/21 21:54 Ephedrine Sulfate (Ephedrine Sulfate 50 Mg/Ml Amp) 5 mg IV Q5M PRN PRN Reason: PACU Use Only-SBP<90 mmHg Stop: 03/02/21 21:54 Fentanyl Citrate (Fentanyl Citrate 100 Mcg/2 Ml Vial) 25 mcg IV Q5M PRN PRN Reason: PACU Use Only-Pain Stop: 03/02/21 21:54 Last Admin: 03/02/21 17:15 Dose: 25 mcg Documented by: Potassium Chloride/Sodium Chloride (Normal Saline W/20 Meq Kcl) 20 meq in 1,000 mls @ 100 mls/hr IV .Q10H NIGEL Stop: 03/31/21 02:29 Last Admin: 03/02/21 18:28 Dose: 100 mls/hr Documented by: Piperacillin Sod/Tazobactam (Sod 3.375 gm/ Dextrose) 115 mls @ 28.75 mls/hr IV Q8H NIGEL; Protocol Stop: 03/11/21 06:59 Last Admin: 03/02/21 17:57 Dose: 28.8 mls/hr Documented by: Miscellaneous Information (Piperacill/Tazobac Consult Active) 1 ea N/A UD PRN PRN Reason: Consult Stop: 03/31/21 01:45 Morphine Sulfate (Morphine Sulfate 2 Mg/Ml Carp) 2 mg IV Q4H PRN PRN Reason: Severe Pain Stop: 03/15/21 01:45 Morphine Sulfate (Morphine Sulfate 2 Mg/Ml Carp) 2 mg IV Q3H PRN PRN Reason: Pain (1,2,3,4,5) & Pre PT Stop: 03/16/21 16:18 Last Admin: 03/02/21 18:05 Dose: 2 mg Documented by: Morphine Sulfate (Morphine Sulfate 4 Mg/Ml 1 Ml Carp\Vial) 4 mg IV Q3H PRN PRN Reason: Pain (6,7,8,9,10) Stop: 03/16/21 16:18 Ondansetron HCl (Ondansetron Inj 2 Mg/Ml 2 Ml Vial) 4 mg IV Q6H PRN PRN Reason: Nausea Stop: 03/31/21 01:45 Last Admin: 03/02/21 17:57 Dose: 4 mg Documented by: Ondansetron HCl (Ondansetron Inj 2 Mg/Ml 2 Ml Vial) 4 mg IV ONCE PRN PRN Reason: PACU Use Only-Nausea/Vomiting Stop: 03/02/21 21:54 Oxycodone/Acetaminophen (Oxycodone/Acetaminophen 5mg/325mg Tab) 1 tab PO Q4H PRN PRN Reason: MODERATE Pain (4,5,6) & Pre PT Stop: 03/16/21 16:18 Oxycodone/Acetaminophen (Oxycodone/Acetaminophen 5mg/325mg Tab) 2 tab PO Q4H PRN PRN Reason: SEVERE Pain (7,8,9,10) Stop: 03/16/21 16:18 Resident Activity Tracking Resident Involvement: Resident Care Provided Care Provided: Adult Hospital Medicine
[2021-03-02 07:00] LABS: Albumin Globulin Ratio 0.9 (0.9-2); Albumin Level 2.6 gm/dl (3.4-5.0); BUN Creatinine Ratio 11.7 (10-20); Bilirubin,Total 6.7 mg/dl (0.2-1); Creatinine Clr Calc Pharmacy 67.6 ml/min; Est GFR (African American) 94.5 ml/min; Est GFR (Non-African American) 81.5 ml/min; Magnesium 2.4 mg/dl (1.8-2.4); Potassium 3.9 mmol/L (3.5-5.1); Total Protein 5.6 gm/dl (6.4-8.2)
[2021-03-02 07:06] LABS: Calcium 8.4 mg/dl (8.5-10.1)
--- NOTE | 2021-03-02 08:06 | Ultrasound Report ---
ULTRASOUND RIGHT UPPER QUADRANT ABDOMEN CLINICAL HISTORY: Acute cholecystitis. COMPARISON STUDY: Abdominal CT dated 02/28/2021. MRCP dated 03/01/2021. TECHNIQUE: Real-time, grayscale, and color flow sonography of the right upper quadrant of the abdomen was performed. Images are reviewed in the transverse and longitudinal planes. FINDINGS: Liver: The liver is normal in size and echotexture. There is no intrahepatic biliary ductal dilatatio n. The main portal vein is patent. The gallbladder is distended and filled with stones and sludge. The gallbladder wall is thickened and edematous measuring up to 6 mm. Trace pericholecystic fluid is noted. A sonographic Dickerson's sign is reportedly present. The common bile duct measures up to 0.4 cm in diameter. Pancreas: Visualized portions of the pancreatic head and body are normal in appearance. The splenic v ein is patent. Right kidney: Survey images of the right kidney demonstrate cortical atrophy. Echotexture is normal. There is no hydronephrosis. Ascites: None. IMPRESSION: Cholelithiasis with acute cholecystitis. ACT 112: Negative or not required by law. Electronically signed by: Romeo Fiore M.D. 03/02/2021 8:05 AM
--- NOTE | 2021-03-02 08:08 | Anesthesiology Consultation ---
Date of Service March 02, 2021 Assessment & Plan (1) Encounter for pre-operative examination: Chart Review Chart Review: Patient NOT seen in Pre Admission Testing Consults Requested medical Requesting documentation from primary team that patient's pulmonary status is optimized for non-emergent general anesthesia due to recently diagnosed aspiration pneumonia with ongoing need for supplemental oxygen. History Surgery Operation Date: 03/02/21 11:00 Proposed Procedures p Endoscopic Retrograde Cholangiopancreato - Neo Arias MD s Laparoscopic Cholecystectomy - Moy Haskins MD Height/Weight Height: 5 ft 9 in Weight: 80.2 kg Allergies Allergy/AdvReac Type Severity Reaction Status Date / Time No Known Drug Allergies Allergy Unknown Verified 02/28/21 17:43 Medications Home Medications Medication Instructions Recorded Confirmed Last Taken celecoxib 200 mg capsule 200 mg PO BID 02/28/21 02/28/21 Unknown cyclobenzaprine 10 mg tablet 10 mg PO TID PRN 02/28/21 02/28/21 Unknown quinidine sulfate 200 mg tablet 200 mg PO DAILY PRN 02/28/21 02/28/21 Unknown Active Medications Generic Name Dose Route Start Last Admin Trade Name Freq PRN Reason Stop Dose Admin Potassium Chloride/Sodium Chloride 20 meq in 1,000 mls @ 100 mls/hr 03/01/21 02:30 03/01/21 22:59 Normal Saline W/20 Meq Kcl IV 03/31/21 02:29 100 mls/hr .Q10H NIGEL Administration Piperacillin Sod/Tazobactam 115 mls @ 28.75 mls/hr 03/01/21 07:00 03/02/21 05:49 Sod 3.375 gm/ Dextrose IV 03/11/21 06:59 28.8 mls/hr Q8H NIGEL Administration Protocol Past Medical History Medical History Actinic keratosis Basal cell carcinoma of face Bladder cancer Bladder neoplasm BPH (benign prostatic hyperplasia) 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 Prostate nodule Skin cancer Varicose veins with inflammation Recently documented afib Past Family History Family History Denies family history of Hearing loss No family history of adverse response to anesthesia No family history of bleeding disorder Heart disease Allergies Cancer Hypertension Stroke Asthma Past Surgical History Surgical History No pertinent past surgical history Social History Smoking Status: Never smoker Do You Dip or Chew Tobacco: No Hx Alcohol Use: No Alcohol type: beer Hx Substance Use: No substance use type: does not use Physical Exam Vital Signs Last Vital Signs Temp 36.8 C 03/02/21 07:58 Pulse 66 03/02/21 07:58 Resp 16 03/02/21 07:58 BP 158/82 H 03/02/21 07:58 Pulse Ox 96 03/02/21 07:58 Testing Laboratory Results 03/02/21 05:54 03/02/21 05:54 PT 10.5 Seconds (9.0-12.0) 02/28/21 18:02 INR 1.0 (0.9-1.1) 02/28/21 18:02 APTT 25.3 Seconds (21.0-31.0) 02/28/21 18:02 Urine Color Dark Yellow 03/01/21 00:45 Urine Appearance Clear (Clear) 03/01/21 00:45 Urine pH 5.0 (4.5-7.5) 03/01/21 00:45 Ur Specific [place] > 1.045 (1.000-1.030) H 03/01/21 00:45 Urine Protein Negative (Negative) 03/01/21 00:45 Urine Glucose (UA) Negative (Negative) 03/01/21 00:45 Urine Ketones Negative (Negative) 03/01/21 00:45 Urine Nitrite Negative (Negative) 03/01/21 00:45 Ur Leukocyte Esterase Negative (Negative) 03/01/21 00:45 Electrocardiogram Date: 02/28/21 1. Question pulmonary vascular congestion. 2. There is a left pleural effusion with left basilar consolidation. This is new from yesterday's abdominal CT. Correlate clinically for evidence of pneumonia/aspiration pneumonitis. Radiographic follow-up to resolution is recommended Echocardiogram Date: 03/01/21 EF: 55-60% LV Function: normal RWMA: + none Other Findings: + LVH (mild, concentric) Valvular Disease: + MR (mild) aortic valve sclerosis without stenosis, normal PA and RA pressures
[2021-03-02] MEDS: NSS + 20MEQ KCL 20 MEQ/1,000 ML BAG IV SCH ×2 (08:44→18:28)
--- NOTE | 2021-03-02 08:45 | Cardiology Progress Note ---
Date of Service March 02, 2021 Assessment & Plan (1) Paroxysmal atrial fibrillation: (2) Anticoagulant long-term use: Plan: 1. Paroxysmal atrial fibrillation: He clearly has atrial fibrillation, it was present when he was first evaluated emergency room this admission and lasted for about 4 hours. I suspect also that it was present in May 2020 but cannot confirm it because an electrocardiogram was not done and he is asymptomatic. Usually atrial fibrillation is not a one-time event in this setting and I would treat it, at least until we do further studies, as an ongoing issue. He has no significant structural heart disease. We could consider long-term monitoring such as a 30-day monitor or even an implantable recorder although at the moment I do not see clear reason to do so, I think it would be better to treat him for longstanding atrial fibrillation with anticoagulation unless a significant contraindication to anticoagulation develops. 2. Anticoagulation: Ideally he would be on an anticoagulant and over the long run we should consider that, with brief atrial fibrillation and now in sinus rhythm I think it is acceptable to hold off until his surgical evaluation is complete. Once invasive evaluation is completed I would start him on an anticoagulant, I prefer Eliquis and in his case that would be 5 mg twice a day. I do not see any reason for further cardiac studies prior to his upcoming EGD. Admission and Anticipated Discharge Date Admission Date: February 28, 2021 Subjective He is feeling well today, he has no cardiovascular symptoms. He is anxious to get his upcoming EGD done. Physical Exam Physical Exam: Constitutional: Alert, cooperative and in no distress. HEENT: Unremarkable Neck: No jugular venous distention, carotid pulses are normal and equal bilaterally without bruits. Pulmonary: Clear to auscultation bilaterally. Cardiac: Regular rhythm with no murmur, gallop or rub. Abdomen: Soft, nontender with normal bowel sounds. Extremities: No edema. Distal pulses intact. Neurologic: No focal findings. Gait is steady. Skin: No rash, ecchymoses or petechiae. Results & Data ([facility]) Vital Signs (Past 12 Hours) Vital Signs Temp Pulse Pulse Resp BP BP Pulse Ox 03/02/21 07:58 36.8 C 66 16 158/82 H 96 03/02/21 07:00 69 03/02/21 03:10 93 03/02/21 03:01 37 C 83 20 126/74 87 L 03/02/21 02:43 71 03/01/21 22:40 36.7 C 82 16 118/73 91 Laboratory Results Cardiac Enzymes 03/02/21 Range/Units 05:54 AST 145 H (15-37) U/L CBC 03/01/21 03/02/21 Range/Units 07:48 05:54 WBC 6.88 (4.8-10.8) K/uL RBC 3.99 L (4.7-6.1) M/uL Hgb 13.1 L (14.0-18.0) g/dL Hct 41.4 L (42-52) % Plt Count 200 (130-400) K/uL Neut # (Auto) 9.21 H 4.93 (1.4-6.5) K/uL Lymph # (Auto) 0.98 L 0.97 L (1.2-3.4) K/uL [place] # (Auto) 1.70 H 0.92 H (0.11-0.59) K/uL Eos # (Auto) 0.01 0.05 (0-0.5) K/uL Baso # (Auto) 0.01 0.01 (0-0.2) K/uL Comprehensive Metabolic Panel 03/02/21 Range/Units 05:54 Sodium 144 (136-145) mmol/L Potassium 3.9 (3.5-5.1) mmol/L Chloride 110 H (98-107) mmol/L Carbon Dioxide 27 (21-32) mmol/L BUN 11 (7-18) mg/dl Creatinine 0.90 (0.6-1.4) mg/dl Glucose 77 (70-99) mg/dl Calcium 8.4 L (8.5-10.1) mg/dl AST 145 H (15-37) U/L ALT 186 H (12-78) U/L Alkaline Phosphatase 84 (45-117) U/L Total Protein 5.6 L (6.4-8.2) gm/dl Albumin 2.6 L (3.4-5.0) gm/dl Intake and Output 03/01/21 03/02/21 03/02/21 22:59 06:59 14:59 Intake Total 1115 / 2335 115 / 2335 Output Total 300 / 1225 Balance 1115 / 1110 -185 / 1110 Intake: IV 1115 / 2335 115 / 2335 Nss + 20Meq KCl 20 meq In 1,000 1000 / 1990 ml @ 100 mls/hr IV .Q10H NIGEL Rx#:[id number] Piperacillin/Tazobactam 3.375 115 / 345 115 / 345 gm In Dextrose 5% 100 ml @ 28. 75 mls/hr IV Q8H NIGEL Rx#: [id number] Output: Urine 300 / 1225 Other: Other Intake Source NPO NPO # Unmeasured Voids 1 Weight 80.2 kg 80.2 kg Patient Weight 03/03/21 06:59 Weight 80.2 kg Diagnostic Findings An echocardiogram done on March 01, 2021 shows normal left ventricular size and function with ejection fraction 55 to 60%, mild concentric left ventricular hypertrophy, aortic sclerosis without stenosis. An electrocardiogram today demonstrates sinus rhythm at 80 bpm. Telemetry: Over the last 24 hours he has had no further atrial fibrillation, he is in sinus rhythm with a controlled heart rate. PG Care Time/CCT Total # of Minutes Spent Total Time Spent with Patient: Total time spent is greater than 50% in coordination of care (as documented) at patient's floor/unit and/or counseling patient: Coding Level of Care Code 36814 Subseq Hosp Care Lvl 2 Diagnoses Paroxysmal atrial fibrillation I48.0 Anticoagulant long-term use Z79.01
--- NOTE | 2021-03-02 08:53 | Surgery Progress Note ---
Date of Service March 02, 2021 Assessment & Plan (1) Acute cholecystitis: Plan: lap magda today after ERCP Consent obtained (2) Acute gallstone pancreatitis: Admission and Anticipated Discharge Date Admission Date: February 28, 2021 Subjective pain improved. Review of Systems Constitutional: no fever and no chills Cardiovascular: no chest pain Gastrointestinal: + abdominal pain; no nausea and no vomiting Physical Exam Constitutional: well developed and well nourished Neck: trachea midline Respiratory: normal respiratory effort, lungs clear to auscultation Cardiovascular: RRR, no murmur, no edema Gastrointestinal (Abdomen): Inspection/Auscultation: abdomen normal to inspection and normal bowel sounds; abdomen not distended Percussion/Palpation: + abdomen tender and abdomen soft Skin: no rashes, warm and dry + jaundice Results & Data ([facility]) Vital Signs (Past 12 Hours) Vital Signs Temp Pulse Pulse Resp BP BP Pulse Ox 03/02/21 07:58 36.8 C 66 16 158/82 H 96 03/02/21 07:00 69 03/02/21 03:10 93 03/02/21 03:01 37 C 83 20 126/74 87 L 03/02/21 02:43 71 03/01/21 22:40 36.7 C 82 16 118/73 91
[2021-03-02 10:51] LABS: Folate (Folic Acid) > 20.00 ng/ml (>5.38); Vitamin B12 955 pg/ml (193-986)
[2021-03-02] MEDS ORDERED: DEXAMETHASONE SOD INJ 4 MG/ML VIAL ONE (12:12)
[2021-03-02] MEDS ORDERED: fentaNYL citrate 100 MCG/2 ML VIAL ONE (12:12)
[2021-03-02] MEDS ORDERED: LIDOCAINE 2% 2 ML VIAL/AMP(20MG/ML) INFIL ONE (12:12)
[2021-03-02] MEDS ORDERED: PROPOFOL IV EMULSION 10 MG/ML 20 ML VIAL IV ONE (12:12)
[2021-03-02] MEDS ORDERED: ONDANSETRON INJ 2 MG/ML 2 ML VIAL ONE (12:12)
--- NOTE | 2021-03-02 13:26 | Gastrointestinal Consultation ---
Date of Consultation March 02, 2021 Assessment & Plan (1) Abnormal LFTs: Likely due to choledocholithiasis. Plan for ERCP. (2) Acute gallstone pancreatitis: History of Present Illness Reason for Consultation: Jaundice Attending Physician: Ciro Cronin DO History of Present Illness 80 years old male patient admitted with abdominal pain, nausea and vomiting, found to have acute cholecystitis, pancreatitis and elevated LFTs consistent with biliary obstruction. GI consulted for possible ERCP. 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 Prostate nodule Skin cancer Varicose veins with inflammation Surgical History No pertinent past surgical history Family History Denies family history of Hearing loss No family history of adverse response to anesthesia No family history of bleeding disorder Heart disease Allergies Cancer Hypertension Stroke Asthma Social History Smoking Status: Never smoker Tobacco Type: Cigarettes and Smokeless Tobacco (Dip or Chew) Second Hand Exposure: No; Hx Alcohol Use: No Hx Substance Use: No Preferred Language: Nepali Communication Ability: Effective Surface Supply Breathing Apparatus Required: No Beliefs That Will Affect Care: None marital status: / Current Living Situation: Alone current occupational status: retired Feels Safe at Home: Yes Assistive Devices: None Review of Systems Constitutional: no fever, no chills, no fatigue and no weight loss Eyes: no eye pain and no worsening vision Ear, Nose, Mouth, Throat: no tinnitus, no dizziness, no nasal discharge and no epistaxis Respiratory: no cough, no dyspnea, no dyspnea on exertion and no wheezing Cardiovascular: no chest pain, no orthopnea, no palpitations and no edema Gastrointestinal: as per Subjective / HPI Musculoskeletal: no stiffness and no myalgia Neurologic: no localized weakness, no paralysis, no tremor(s) and no headache(s) Endocrine: no polydipsia and no polyuria Hematologic / Lymphatic: no easy bleeding and no night sweats Physical Exam Constitutional: + well hydrated, cooperative and comfortable Eyes: PERRL, conjunctivae normal, anicteric sclerae ENMT: external ear and nose normal, oropharynx normal Neck: normal visual inspection and trachea midline Respiratory: normal respiratory effort, lungs clear to auscultation Auscultation: no wheezes Cardiovascular: RRR, no murmur, no edema Gastrointestinal (Abdomen): normal bowel sounds, soft, nontender, no hepatosplenomegaly Musculoskeletal: no cyanosis or clubbing, extremities motor strength 5/5 Skin: no rashes, warm and dry Neurologic: awake; no focal motor deficits Motor/Sensory: no tremor Results & Data ([facility]) Vital Signs (Past 12 Hours) Vital Signs Temp Pulse Pulse Resp BP BP Pulse Ox 03/02/21 11:50 36.7 C 81 16 151/83 H 95 03/02/21 07:58 36.8 C 66 16 158/82 H 96 03/02/21 07:00 69 03/02/21 03:10 93 03/02/21 03:01 37 C 83 20 126/74 87 L 03/02/21 02:43 71 Laboratory Results Laboratory Results - last 24 hr 03/02/21 03/02/21 03/02/21 05:54 05:54 09:28 WBC 6.88 RBC 3.99 L Hgb 13.1 L Hct 41.4 L MCV 103.8 H MCH 32.8 MCHC 31.6 L RDW Std Deviation 54.3 H RDW Coeff of Francine 14.2 Plt Count 200 MPV 10.2 Immature Gran % (Auto) 0.0 Neut % (Auto) 71.7 Lymph % (Auto) 14.1 [place] % (Auto) 13.4 Eos % (Auto) 0.7 Baso % (Auto) 0.1 Neut # (Auto) 4.93 Lymph # (Auto) 0.97 L [place] # (Auto) 0.92 H Eos # (Auto) 0.05 Baso # (Auto) 0.01 Immature Gran # (Auto) 0.00 Sodium 144 Potassium 3.9 Chloride 110 H Carbon Dioxide 27 Anion Gap 8.0 BUN 11 Creatinine 0.90 Est Cr Clr Drug Dosing 67.6 Est GFR ( Amer) 94.5 Est GFR (Non-Af Amer) 81.5 BUN/Creatinine Ratio 11.7 Glucose 77 Calcium 8.4 L Magnesium 2.4 Total Bilirubin 6.7 H AST 145 H ALT 186 H Alkaline Phosphatase 84 Total Protein 5.6 L Albumin 2.6 L Globulin 3.0 Albumin/Globulin Ratio 0.9 Vitamin B12 955 Folate > 20.00
--- NOTE | 2021-03-02 13:26 | History & Physical Bridge Note ---
Date of Service March 02, 2021 History & Physical Bridge Note I have examined the patient, reviewed the History & Physical and in the interval since the performance of the History & Physical I have noted the following changes of clinical significance: no changes noted ERCP today
[2021-03-02] MEDS ORDERED: SUCCINYLCHOLINE CHLORIDE 20 MG/ML 10 ML VIAL IV ONE (13:36)
[2021-03-02] MEDS ORDERED: INDOMETHACIN 50 MG SUPP PR ONE (13:40)
[2021-03-02] MEDS ORDERED: fentaNYL citrate 100 MCG/2 ML VIAL IV PRN (13:54)
[2021-03-02] MEDS ORDERED: ONDANSETRON INJ 2 MG/ML 2 ML VIAL IV PRN (13:54)
[2021-03-02] MEDS ORDERED: ATROPINE SULFATE 0.1 MG/ML 10ML SYR IV PRN (13:54)
[2021-03-02] MEDS ORDERED: ePHEDrine sulfate 50 MG/ML AMP IV PRN (13:54)
[2021-03-02] MEDS ORDERED: PHENYLEPHRINE 100MCG/ML 5ML SYR ONE (14:35)
--- NOTE | 2021-03-02 15:16 | Operative Report ---
Post Operative Report Pre & Post Diagnosis Operation Date: 03/02/21 11:00 Pre-Op Diagnosis: Acute gallstone pancreatitis Post-Op Diagnosis: Acute gallstone pancreatitis I identified the patient and participated in the time-out.: Yes Procedure Operation Date: 03/02/21 11:00 Actual Procedures p Endoscopic Retrograde Cholangiopancreato(Not Applicable) - Neo Arias MD s Laparoscopic Cholecystectomy - Moy Haskins MD Surgeon Neo Arias MD Battery Recharger None Estimated Blood Loss 0 Findings See Below (Choledocholithiasis removed, CBD stent placed) Specimens None Description of Procedure ERCP I attest to the content of the Intraoperative Record and any orders documented therein. Any exceptions are noted below.
[2021-03-02] MEDS ORDERED: ROCURONIUM BROMIDE 10 MG/ML 5 ML VIAL IV ONE ×6 (15:17→15:27)
[2021-03-02] MEDS ORDERED: EPINEPHrine INJ 1 MG/ML AMP ONE (15:45)
[2021-03-02] MEDS ORDERED: BUPIVACAINE 0.5 % 5 MG/1 ML MPF 30ML VIAL ONE (15:45)
[2021-03-02] MEDS ORDERED: GLYCOPYRROLATE 0.2 MG/ML VIAL ONE ×2 (15:52→15:53)
[2021-03-02] MEDS ORDERED: NEOSTIGMINE METHYLSULFATE 1 MG/ML 10ML VIAL ONE (15:52)
--- NOTE | 2021-03-02 16:15 | Post Operative Brief Note ---
Immediate Post Op Note v1 Date of Surgery March 02, 2021 Pre & Post Diagnosis Operation Date: 03/02/21 11:00 Pre-Op Diagnosis: Acute gallstone pancreatitis Post-Op Diagnosis: Acute gallstone pancreatitis I identified the patient and participated in the time-out.: Yes Procedure Operation Date: 03/02/21 11:00 Actual Procedures p Endoscopic Retrograde Cholangiopancreatography(Not Applicable) - Neo Arias MD s Laparoscopic Cholecystectomy(Not Applicable) - Moy Haskins MD Surgeon Moy Haskins MD Clinical Product Manager None Estimated Blood Loss 10 Findings Consistent with Post-Op Diagnosis acute cholecystitis
[2021-03-02] MEDS ORDERED: oxyCODONE/ACETAMINOPHEN 5mg/325mg TAB PO PRN ×2 (16:19)
[2021-03-02] MEDS ORDERED: MoRPHine SULFATE 4 MG/ML 1 ML CARP\\VIAL IV PRN (16:19)
[2021-03-02] MEDS: fentaNYL citrate 100 MCG/2 ML VIAL IV PRN ×3 (16:52→17:15)
--- NOTE | 2021-03-02 17:12 | Anesthesiology Progress Note ---
Date of Service March 02, 2021 Anesthesia Post Procedure Vital Signs Vital Signs: Temp Pulse Pulse Pulse Resp BP BP 03/02/21 17:05 81 22 131/68 03/02/21 16:55 84 20 129/64 03/02/21 16:45 91 H 18 131/68 03/02/21 16:35 93 H 20 133/74 03/02/21 16:29 36.0 C L 107 H 16 129/98 03/02/21 11:50 36.7 C 81 16 151/83 H 03/02/21 07:58 36.8 C 66 16 158/82 H 03/02/21 07:00 69 03/02/21 03:10 03/02/21 03:01 37 C 83 20 126/74 03/02/21 02:43 71 03/01/21 22:40 36.7 C 82 16 118/73 03/01/21 19:33 36.8 C 63 18 112/72 Pulse Ox 03/02/21 17:05 93 03/02/21 16:55 93 03/02/21 16:45 92 03/02/21 16:35 95 03/02/21 16:29 93 03/02/21 11:50 95 03/02/21 07:58 96 03/02/21 07:00 03/02/21 03:10 93 03/02/21 03:01 87 L 03/02/21 02:43 03/01/21 22:40 91 03/01/21 19:33 92 Pain Intensity Abdomen: Pain Intensity: 5 Transfer of Care Handoff Completed per policy Notes Mental Status: alert / awake / arousable and participated in evaluation Patient Amnestic to Procedure: Yes Nausea / Vomiting: adequately controlled Pain: adequately controlled Airway Patency, RR, SpO2: stable & adequate BP & HR: stable & adequate Hydration State: stable & adequate Anesthetic Complications: no major complications apparent and Pt Satisfied with anesthetic care
--- NOTE | 2021-03-02 17:15 | Fluoroscopy Report ---
INTRAOPERATIVE RADIOGRAPHS CLINICAL HISTORY: ERCP. Fluoroscopy time: 1 minute 37 seconds. FINDINGS: 8 spot fluoroscopic images of the right upper quadrant from an ERCP procedure are correlate d with abdominal CT dated 02/28/2021. There is cannulation of the common bile duct which is then opaci fied with contrast. No definite intraluminal filling defects are identified to confirm choledocholith iasis. A balloon sweep of the common duct is performed. Contrast within the gallbladder outlines nume gisele gallstones. The final image shows a common bile duct stent in place. No significant intrahepatic ductal dilatation is identified. IMPRESSION: Intraoperative ERCP images as above. See operative report for detailed findings. Electronically signed by: Romeo Fiore M.D. 03/02/2021 5:14 PM
--- NOTE | 2021-03-02 17:31 | Operative Report (OR) ---
DATE OF PROCEDURE: 03/02/2021 PREOPERATIVE DIAGNOSIS: Acute cholecystitis. POSTOPERATIVE DIAGNOSIS: Acute cholecystitis. PROCEDURES PERFORMED: Laparoscopic cholecystectomy. SURGEON: Moy Haskins MD. FACILITIES MAINTENANCE TECHNICIAN: None. ANESTHESIA: General endotracheal with 0.5% Marcaine with epinephrine local. ESTIMATED BLOOD LOSS: 10 mL. DRAINS: None. COMPLICATIONS: None. SPECIMENS: Gallbladder was sent for pathologic evaluation. INDICATIONS FOR THE PROCEDURE: This is a 80-year-old male admitted with gallstone pancreatitis and e levated LFTs along with signs consistent with acute cholecystitis. He was admitted, placed on IV flu ids, IV antibiotics. He was evaluated by GI and Medicine; they elected to take him for ERCP. The ER CP was done for the gallstone pancreatitis where the stone was removed successfully. Once this was d one, we talked to him about removing his gallbladder at the same time. I consented him for possible complications including open procedure, common duct injury, retained common bile duct stone, bile denisa k, bleeding, infection and possible bowel or blood vessel injury. He understands all this and wishes to proceed. DESCRIPTION OF SURGERY: The patient was taken to the OR and underwent the ERCP. Afterwards, we place d him in the supine position. His abdomen was prepped and draped in normal sterile fashion. Transve rse supraumbilical incision was made. Dissection was taken down to identify his fascia. Vicryl sutu res were placed on either side of midline. The midline was incised sharply. [place] trocar was then inserted after a blunt Ria clamp was used to enter the peritoneal cavity. Good pneumoperitoneum wa s achieved to 15 mmHg pressure. The patient was placed in head up and rolled a little to the left. An 11 subxiphoid and two 5 lateral ports were placed in normal fashion. His gallbladder was acutely edematous consistent with acute cholecystitis. There were some adhesions to the gallbladder, which w ere taken down bluntly. The lateral grasper was used to grasp the fundus and retracted superiorly. The neck was then grasped and retracted laterally. Peritoneal attachments were taken down around the cystic duct and cystic artery. The cystic artery was large and identified. A space was created bet ween the structures and the gallbladder fossa creating a medial and lateral window showing the struct ures going straight to the gallbladder. Once this critical view was seen, 3 clips were placed ginny hernandez on the cystic artery and 1 distally, and the cystic artery was transected. A clip was then corazon iman proximally in the cystic duct and 3 distally on the cystic duct and this was transected. An electrocautery hook was then used to remove the gallbladder off the gallbladder fossa. There were some small areas of bleeding on the gallbladder fossa, which were cauterized. The gallbladder was t hen brought out with an Endobag through the supraumbilical incision. Pneumoperitoneum was reestablis hed. The abdomen was then irrigated out and suctioned to clear. There was about 10 mL of blood loss . The gallbladder fossa showed no sign of bleeding. The duct was clipped and secured. Ports were t hen removed. Pneumoperitoneum was decompressed. 0 Vicryl was used to close the fascial defect in th e supraumbilical incision. Interrupted Vicryl was used to close the skin. Steri-Strips and benzoin were used to reinforce the incision. Sterile dressings were applied. The patient tolerated the proc edure without any complications, was sent to the postoperative recovery for a period of observation a nd then be sent to the floor for his care. Job ID: [id number]
[2021-03-02] MEDS: MoRPHine SULFATE 2 MG/ML CARP IV PRN ×2 (18:05→22:55)
--- NOTE | 2021-03-02 19:12 | Billing Data ---
Date of Service March 02, 2021 Coding Level of Care Code 85493 Subseq Hosp Care Lvl 2
--- NOTE | 2021-03-02 20:18 | GI REPORT ---
Patient Name: Bella Tobias Procedure Date: 03/02/2021 12:35 PM Date of : 1940 Admit Type: Inpatient Age: 80 Gender: Male Attending MD: Neo Arias MD Procedure: ERCP Providers: Neo Arias MD Referring MD: Ciro Cronin, Moy Haskins MD Indications: Evaluation and possible treatment of bile duct stone(s), Jaundice Medicines: General Anesthesia Complications: No immediate complications. Estimated Blood Loss: Estimated blood loss: none. Procedure: Pre-Anesthesia Assessment: - Prior to the procedure, a History and Physical was performed, and patient medications, allergies and sensitivities were reviewed. The patient's tolerance of previous anesthesia was reviewed. - The risks and benefits of the procedure and the sedation options and risks were discussed with the patient. All questions were answered and informed consent was obtained. - Patient identification and proposed procedure were verified prior to the procedure by the physician. The procedure was verified in the procedure room. - Pre-procedure physical examination revealed no contraindications to sedation. After obtaining informed consent, the scope was passed under direct vision. Throughout the procedure, the patient's blood pressure, pulse, and oxygen saturations were monitored continuously. The Scope was introduced through the mouth, and advanced to the duodenum and used to inject contrast into the bile duct. The ERCP was technically difficult and complex due to challenging cannulation because of intradiverticular papilla. The patient tolerated the procedure well. Findings: The platform supervisor film was normal. The esophagus was successfully intubated under direct vision. The scope was advanced to a normal major papilla in the descending duodenum without detailed examination of the pharynx, larynx and associated structures, and upper GI tract. The upper GI tract was grossly normal. 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 Despite multiple attempts, the biliary tree could not be cannulated using the sphincterotome. A biliary pre-cut sphincterotomy was made with a monofilament needle knife using a freehand technique using ERBE electrocautery. The sphincterotomy oozed blood. A 0.025 inch x 270 cm angled Visiglide wire was passed into the biliary tree. The Fusion OMNI sphincterotome was passed over the guidewire and the bile duct was then deeply cannulated. Contrast was injected. I personally interpreted the bile duct images. Ductal flow of contrast was adequate. Image quality was adequate. Contrast extended to the main bile duct. Opacification of the entire biliary tree was successful. The maximum diameter of the ducts was 8 mm. The biliary sphincterotomy was extended with a monofilament traction (standard) sphincterotome using ERBE electrocautery. There was no post-sphincterotomy bleeding. The biliary tree was swept with an 11.5 mm balloon starting at the bifurcation. Debris was swept from the duct. Sludge was swept from the duct. Area was successfully injected with 3 mL of a 1:10,000 solution of epinephrine through the ERCP scope for hemostasis. One 10 mm by 6 cm covered metal biliary stent was placed into the common bile duct. Bile flowed through the stent. The stent was in good position. 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 - A biliary sphincterotomy was performed. - The biliary tree was swept and debris and sludge were found. - One covered metal biliary stent was placed into the common bile duct. Recommendation: - [facility] patient [facility] for [facility] care. - Proceed with Lap cholecystectomy. - Repeat ERCP in 6 weeks to remove stent. Neo Arias MD 03/02/2021 8:18:11 PM This report has been signed electronically. Note Initiated On: 03/02/2021 12:35 PM Number of Addenda: 0 I attest to the content of the Intraoperative Record and orders documented therein, exceptions below {[id number]}
[2021-03-03] MEDS: NSS + 20MEQ KCL 20 MEQ/1,000 ML BAG IV SCH (04:12)
[2021-03-03] MEDS: PIPERACILLIN/TAZOBACTAM 3.375 GM in DEXTROSE 5% 100 ML IV SCH ×3 (06:10→21:39)
[2021-03-03 07:22] LABS: iSTAT Creatinine 1.1 mg/dl (0.6-1.3); iSTAT Hemoglobin 17.7 g/dl (14.0-18.0); iSTAT Ionized Calcium 1.15 mmol/l (1.12-1.32); iSTAT Potassium 3.9 mmol/L (3.3-5.0)
[2021-03-03 07:39] LABS: Basophils # (auto) 0.01 K/uL (0-0.2); Basophils % (auto) 0.1 %; Eosinophils # (auto) 0.01 K/uL (0-0.5); Eosinophils % (auto) 0.1 %; Hematocrit (blood only) 43.4 % (42-52); Hemoglobin 13.7 g/dL (14.0-18.0); Immature Granulocytes # (auto) 0.01 K/uL (0.00-0.02); Immature Granulocytes % (auto) 0.1 %; Lymphocytes # (auto) 0.81 K/uL (1.2-3.4); Lymphocytes % (auto) 9.3 %; Mean Corpuscular Hemoglobin 33.7 pg (25-34); Mean Corpuscular Hgb Conc 31.6 g/dL (32-36); Mean Corpuscular Volume 106.6 fL (80-100); Mean Platelet Volume 10.3 fL (7.4-10.4); Monocytes # (auto) 1.24 K/uL (0.11-0.59); Monocytes % (auto) 14.2 %; Neutrophils # (auto) 6.65 K/uL (1.4-6.5); Neutrophils % (auto) 76.2 %; Platelet Count 235 K/uL (130-400); RDW Coefficient of Variation 13.8 % (11.5-14.5); Red Blood Count 4.07 M/uL (4.7-6.1); White Blood Count 8.73 K/uL (4.8-10.8)
[2021-03-03] MEDS: ACETAMINOPHEN 325 MG TAB PO PRN (08:04)
[2021-03-03 08:11] LABS: Albumin Level 2.6 gm/dl (3.4-5.0); BUN Creatinine Ratio 12.9 (10-20); Calcium 8.2 mg/dl (8.5-10.1); Creatinine Clr Calc Pharmacy 69.2 ml/min; Est GFR (African American) 95.4 ml/min; Est GFR (Non-African American) 82.3 ml/min; Magnesium 2.1 mg/dl (1.8-2.4); Potassium 4.3 mmol/L (3.5-5.1)
[2021-03-03 08:21] LABS: Albumin Globulin Ratio 0.7 (0.9-2); Bilirubin,Total 4.6 mg/dl (0.2-1); Globulin 3.5 gm/dl (2.5-4.0); Total Protein 6.1 gm/dl (6.4-8.2)
--- NOTE | 2021-03-03 09:20 | Electrocardiogram Report ---
Test Reason : Blood Pressure : / mmHG Vent. Rate : 084 BPM Atrial Rate : 084 BPM P-R Int : 202 ms QRS Dur : 084 ms QT Int : 374 ms P-R-T Axes : 073 -20 044 degrees QTc Int : 441 ms Normal sinus rhythm Low voltage QRS Borderline ECG When compared with ECG of 28-FEB-2021 18:02, (unconfirmed) Sinus rhythm has replaced Atrial fibrillation Confirmed by Emory Barrios ([id number]) on 03/03/2021 9:20:14 AM Referred By: REFERRED SELF Confirmed By:Emory Barrios
--- NOTE | 2021-03-03 09:22 | Electrocardiogram Report ---
Test Reason : Blood Pressure : / mmHG Vent. Rate : 080 BPM Atrial Rate : 080 BPM P-R Int : 190 ms QRS Dur : 088 ms QT Int : 384 ms P-R-T Axes : 115 174 184 degrees QTc Int : 442 ms R arm/L arm lead reversal Normal sinus rhythm Abnormal ECG When compared with ECG of 01-MAR-2021 06:31, (unconfirmed) No significant change taking into account lead reversal Confirmed by Emory Barrios ([id number]) on 03/03/2021 9:22:10 AM Referred By: REFERRED SELF Confirmed By:Emory Barrios
--- NOTE | 2021-03-03 09:24 | Electrocardiogram Report ---
Test Reason : Blood Pressure : / mmHG Vent. Rate : 075 BPM Atrial Rate : 075 BPM P-R Int : 208 ms QRS Dur : 086 ms QT Int : 388 ms P-R-T Axes : 025 -17 013 degrees QTc Int : 433 ms Poor data quality, interpretation may be adversely affected Sinus rhythm with marked sinus arrhythmia Otherwise normal ECG When compared with ECG of 02-MAR-2021 05:40, (unconfirmed) Prior tracing has arm lead reversal Similar to 03/01/2021 Confirmed by Emory Barrios ([id number]) on 03/03/2021 9:24:04 AM Referred By: REFERRED SELF Confirmed By:Emory Barrios
--- NOTE | 2021-03-03 09:27 | Electrocardiogram Report ---
Test Reason : Blood Pressure : / mmHG Vent. Rate : 076 BPM Atrial Rate : 076 BPM P-R Int : 200 ms QRS Dur : 086 ms QT Int : 398 ms P-R-T Axes : 000 -17 014 degrees QTc Int : 447 ms sinus arrhythmia Otherwise normal ECG When compared with ECG of 02-MAR-2021 05:40, (unconfirmed) No significant change Confirmed by Emory Barrios ([id number]) on 03/03/2021 9:27:04 AM Referred By: REFERRED SELF Confirmed By:Emory Barrios
--- NOTE | 2021-03-03 09:28 | Electrocardiogram Report ---
Test Reason : Blood Pressure : / mmHG Vent. Rate : 076 BPM Atrial Rate : 076 BPM P-R Int : 190 ms QRS Dur : 082 ms QT Int : 388 ms P-R-T Axes : 059 -19 010 degrees QTc Int : 436 ms Sinus rhythm with Premature supraventricular complexes and with occasional Premature ventricular comp lexes Anterior infarct (cited on or before 02-MAR-2021) Abnormal ECG When compared with ECG of 02-MAR-2021 05:40, (unconfirmed) Premature ventricular complexes are now Present Confirmed by Emory Barrios ([id number]) on 03/03/2021 9:28:11 AM Referred By: REFERRED SELF Confirmed By:Emory Barrios
--- NOTE | 2021-03-03 09:31 | Gastroenterology Progress Note ---
Date of Service March 03, 2021 Assessment & Plan (1) Abnormal LFTs: Plan: 80 year old male s/p ERCP w/ biliary sphincterotomy was performed, debris and sludge were found, one covered metal biliary stent was placed into the common bile duct. - Trend LFTs - Can continue dietary advancement per general surgery - ERCP in 6 weeks for stent removal - Recall GI as needed Admission and Anticipated Discharge Date Admission Date: February 28, 2021 Subjective Pt was seen and evaluated, chart reviewed. S/P ERCP and ccy Feeling better Less abd pain. Denies nausea, vomiting Tolerating clear liquids Review of Systems Review of Systems: All systems reviewed & are unremarkable except as noted in HPI & below Physical Exam Constitutional: WD/WN, vitals as above Neck: trachea midline, no thyromegaly Respiratory: normal respiratory effort, lungs clear to auscultation Cardiovascular: RRR, no murmur, no edema Gastrointestinal (Abdomen): normal bowel sounds, soft, nontender, no hepatosplenomegaly Skin: no rashes, warm and dry Results & Data ([facility]) Vital Signs (Past 12 Hours) Vital Signs Temp Pulse Pulse Pulse Resp BP BP 03/03/21 07:10 37.0 C 82 18 182/70 H 03/03/21 05:41 84 03/03/21 03:55 36.9 C 79 18 158/89 H 03/02/21 23:11 36.4 C L 91 H 20 174/89 H Pulse Ox 03/03/21 07:10 94 03/03/21 05:41 03/03/21 03:55 95 03/02/21 23:11 94 Laboratory Results 03/03/21 03/03/21 03/02/21 Range/Units 06:41 06:41 09:28 WBC 8.73 (4.8-10.8) K/uL RBC 4.07 L (4.7-6.1) M/uL Hgb 13.7 L (14.0-18.0) g/dL POC Hgb (14.0-18.0) g/dl Hct 43.4 (42-52) % POC Hct (42-52) % MCV 106.6 H (80-100) fL MCH 33.7 (25-34) pg MCHC 31.6 L (32-36) g/dL RDW Std Deviation 54.0 H (36.4-46.3) fL RDW Coeff of Francine 13.8 (11.5-14.5) % Plt Count 235 (130-400) K/uL MPV 10.3 (7.4-10.4) fL Immature Gran % (Auto) 0.1 % Neut % (Auto) 76.2 % Lymph % (Auto) 9.3 % Wayne % (Auto) 14.2 % Eos % (Auto) 0.1 % Baso % (Auto) 0.1 % Neut # (Auto) 6.65 H (1.4-6.5) K/uL Lymph # (Auto) 0.81 L (1.2-3.4) K/uL Wayne # (Auto) 1.24 H (0.11-0.59) K/uL Eos # (Auto) 0.01 (0-0.5) K/uL Baso # (Auto) 0.01 (0-0.2) K/uL Immature Gran # (Auto) 0.01 (0.00-0.02) K/uL POC Sodium (135-144) mmol/L Sodium 143 (136-145) mmol/L POC Potassium (3.3-5.0) mmol/L Potassium 4.3 (3.5-5.1) mmol/L POC Chloride (101-112) mmol/L Chloride 106 (98-107) mmol/L Carbon Dioxide 26 (21-32) mmol/L POC Total CO2 (24-31) mmol/L Anion Gap 11.0 (3-11) POC Anion Gap (16-25) mmol/L POC BUN (7-18) mg/dl BUN 11 (7-18) mg/dl Creatinine 0.88 (0.6-1.4) mg/dl POC Creatinine (0.6-1.3) mg/dl Est Cr Clr Drug Dosing 69.2 ml/min Est GFR ( Amer) 95.4 ml/min Est GFR (Non-Af Amer) 82.3 ml/min BUN/Creatinine Ratio 12.9 (10-20) Glucose 102 H (70-99) mg/dl POC Glucose (other) (70-99) mg/dl Calcium 8.2 L (8.5-10.1) mg/dl POC Ioniz Calcium Ray (1.12-1.32) mmol/l Magnesium 2.1 (1.8-2.4) mg/dl Total Bilirubin 4.6 H (0.2-1) mg/dl AST 120 H (15-37) U/L ALT 168 H (12-78) U/L Alkaline Phosphatase 95 (45-117) U/L Total Protein 6.1 L (6.4-8.2) gm/dl Albumin 2.6 L (3.4-5.0) gm/dl Globulin 3.5 (2.5-4.0) gm/dl Albumin/Globulin Ratio 0.7 L (0.9-2) Vitamin B12 955 (193-986) pg/ml Folate > 20.00 (>5.38) ng/ml 02/28/21 Range/Units 18:13 WBC (4.8-10.8) K/uL RBC (4.7-6.1) M/uL Hgb (14.0-18.0) g/dL POC Hgb 17.7 (14.0-18.0) g/dl Hct (42-52) % POC Hct 52 (42-52) % MCV (80-100) fL MCH (25-34) pg MCHC (32-36) g/dL RDW Std Deviation (36.4-46.3) fL RDW Coeff of Francine (11.5-14.5) % Plt Count (130-400) K/uL MPV (7.4-10.4) fL Immature Gran % (Auto) % Neut % (Auto) % Lymph % (Auto) % Wayne % (Auto) % Eos % (Auto) % Baso % (Auto) % Neut # (Auto) (1.4-6.5) K/uL Lymph # (Auto) (1.2-3.4) K/uL Wayne # (Auto) (0.11-0.59) K/uL Eos # (Auto) (0-0.5) K/uL Baso # (Auto) (0-0.2) K/uL Immature Gran # (Auto) (0.00-0.02) K/uL POC Sodium 141 (135-144) mmol/L Sodium (136-145) mmol/L POC Potassium 3.9 (3.3-5.0) mmol/L Potassium (3.5-5.1) mmol/L POC Chloride 102 (101-112) mmol/L Chloride (98-107) mmol/L Carbon Dioxide (21-32) mmol/L POC Total CO2 23 L (24-31) mmol/L Anion Gap (3-11) POC Anion Gap 21.0 (16-25) mmol/L POC BUN 18 (7-18) mg/dl BUN (7-18) mg/dl Creatinine (0.6-1.4) mg/dl POC Creatinine 1.1 (0.6-1.3) mg/dl Est Cr Clr Drug Dosing ml/min Est GFR ( Amer) ml/min Est GFR (Non-Af Amer) ml/min BUN/Creatinine Ratio (10-20) Glucose (70-99) mg/dl POC Glucose (other) 134 H (70-99) mg/dl Calcium (8.5-10.1) mg/dl POC Ioniz Calcium Ray 1.15 (1.12-1.32) mmol/l Magnesium (1.8-2.4) mg/dl Total Bilirubin (0.2-1) mg/dl AST (15-37) U/L ALT (12-78) U/L Alkaline Phosphatase (45-117) U/L Total Protein (6.4-8.2) gm/dl Albumin (3.4-5.0) gm/dl Globulin (2.5-4.0) gm/dl Albumin/Globulin Ratio (0.9-2) Vitamin B12 (193-986) pg/ml Folate (>5.38) ng/ml
--- NOTE | 2021-03-03 10:22 | Electrocardiogram Report ---
Test Reason : Blood Pressure : / mmHG Vent. Rate : 103 BPM Atrial Rate : 178 BPM P-R Int : 000 ms QRS Dur : 084 ms QT Int : 348 ms P-R-T Axes : 000 -28 043 degrees QTc Int : 455 ms Atrial fibrillation with rapid ventricular response Low voltage QRS Cannot rule out Anterior infarct , age undetermined Abnormal ECG When compared with ECG of 14-NOV-2015 09:35, Atrial fibrillation has replaced Sinus rhythm Minimal criteria for Anterior infarct are now Present Confirmed by Emory Barrios ([id number]) on 03/03/2021 10:22:29 AM Referred By: REFERRED SELF Confirmed By:Emory Barrios
--- NOTE | 2021-03-03 11:34 | Hospitalist Progress Note ---
Date of Service March 03, 2021 Assessment & Plan (1) Acute cholecystitis: Plan: 1) Acute Cholecystitis with cholelithiasis - CT abd/pelvis 02/28 demonstrating Cholelithiasis with acute cholecystitis -S/p cholecystectomy and ERCP 03/02/2021 -continue pip/tazo abx -Repeat CMP because of elevated bilirubin and liver enzymes -diet clear fluids advance as tolerated, discontinue IVF and use oral hydration -PRN morphine, oxycodone for pain control 2) Paroxysmal Atrial Fibrillation -New episode of atrial fibrillation today, began metoprolol tartrate 25 mg PO BID -one episode of atrial fibrillation noted on EKG on 02/28, currently no longer present on EKG 03/01 -troponins on arrival negative -cardiology consulted, suggest anticoagulation eliquis 5mg BID -echo 03/01 LVEF 55-60%, mild concentric LVH, mild mitral valve regurge, aortic valve sclerosis without stenosis 3) Atelectasis -CT demonstrated atelectasis or infectious pneumonitis. -CT chest 03/01 demonstrates: There is increasing airspace consolidation at both lung bases, left greater than right. This could represent progressive atelectasis versus an infectious/inflammatory pneumonitis. Trace left pleural effusion. Mild intralobular septal thickening is noted. Correlate clinically for evidence of fluid overload/congestion. -Add incentive spirometer -admit pulse ox 76% RA, currently 96% on RA -continue pip/tazo abx Code Status: Full Code Diet: clear fluids DVT Prophylaxis: eliquis 5 mg bid (2) Atrial fibrillation with rapid ventricular response: Admission and Anticipated Discharge Date Admission Date: February 28, 2021 Supervising Physician Co-Signing Physician Notes Resident Physician Supervision Note: I independently interviewed and examined the patient and verified the bosch history and physical, reviewed labs and image studies and agree with resident Dr. Goldstein findings and care plan. Subjective 80 yo Male s/p cholecystectomy, ERCP with stone removal yesterday seen at bedside while he was eating his breakfast. Pt states that he is doing well. Pt is pleasant and cooperative. Prior to seeing the pt, he did go into an episode of afib that was ongoing during the examination. He states that he does not have any n/v and does have an appetite. Pt has not had a bowel movement yet. Pt is voiding well. He states that he does have some mild abdominal pain, but it is tolerable. Denies chest pain, sob, fever, or chills. Review of Systems Review of Systems: Negative fever chills Negative headache dizziness Negative chest pain palpitations SOB Negative nausea vomitting diarrhea constipation Negative numbness tingling rash swelling Physical Exam Constitutional: well developed, well nourished, cooperative and comfortable; no acute distress Eyes: + scleral abnormality (Scleral icterus noted on exam.) Neck: normal visual inspection and trachea midline Thyroid: normal thyroid Respiratory: normal respiratory effort, lungs clear to auscultation Cardiovascular: Rate/Rhythm: + irregularly irregular Heart Sounds: normal S1 and normal S2 Vessels: no JVD Extremities: no edema Gastrointestinal (Abdomen): Inspection/Auscultation: normal bowel sounds Percussion/Palpation: + abdomen tender (RUQ and periumbilical. Reduced.) and abdomen soft Musculoskeletal: Head/Neck/Chest: normocephalic Skin: no rashes, warm and dry There are 3 well healing incisions on the abdominal wall without erythema or hyperthermia present. Psychiatric: A+Ox3, euthymic affect Results & Data Results & Data ([facility]) Vital Signs (Past 12 Hours) Vital Signs Temp Pulse Pulse Pulse Resp BP BP 03/03/21 11:03 36.7 C 81 20 155/80 H 03/03/21 08:00 76 03/03/21 07:10 37.0 C 82 18 182/70 H 03/03/21 05:41 84 03/03/21 03:55 36.9 C 79 18 158/89 H Pulse Ox 03/03/21 11:03 96 03/03/21 08:00 03/03/21 07:10 94 03/03/21 05:41 03/03/21 03:55 95
[2021-03-03 12:18] LABS: BUN Creatinine Ratio 8.6 (10-20); Calcium 8.6 mg/dl (8.5-10.1); Creatinine Clr Calc Pharmacy 61.5 ml/min; Est GFR (African American) 84.2 ml/min; Est GFR (Non-African American) 72.6 ml/min
[2021-03-03] MEDS ORDERED: ENOXAPARIN INJ 40 MG/0.4 ML SYR SQ SCH (12:30)
--- NOTE | 2021-03-03 12:47 | Cardiology Progress Note ---
Date of Service March 03, 2021 Assessment & Plan (1) Paroxysmal atrial fibrillation: (2) Anticoagulant long-term use: Plan: 1. Paroxysmal atrial fibrillation: He clearly has atrial fibrillation, it was present when he was first evaluated in the emergency room this admission and lasted for about 4 hours. I suspect also that it was present in May 2020 but cannot confirm it because an electrocardiogram was not done and he is asymptomatic. He also had a brief episode this morning. I would treat it, at least until we do further studies, as an ongoing issue. We could consider long- term monitoring such as a 30-day monitor or even an implantable recorder although at the moment I do not see clear reason to do so, I think it would be better to treat him for longstanding atrial fibrillation with anticoagulation unless a significant contraindication to anticoagulation develops. His HR is well controlled already. 2. Anticoagulation: Ideally he would be on an anticoagulant and over the long run, with brief atrial fibrillation and mostly in sinus rhythm I think it is acceptable to hold off until his surgical evaluation is complete. Once invasive evaluation is completed I would start him on an anticoagulant, I prefer Eliquis and in his case that would be 5 mg twice a day. Perhaps that can be started now. Admission and Anticipated Discharge Date Admission Date: February 28, 2021 Subjective He is feeling better today, less nausea. He did not feel atrial fibrillation this morning. Physical Exam Physical Exam: Constitutional: Alert, cooperative and in no distress. HEENT: Unremarkable Neck: No jugular venous distention, carotid pulses are normal and equal bilaterally without bruits. Pulmonary: Clear to auscultation bilaterally. Cardiac: Regular rhythm with no murmur, gallop or rub. Abdomen: Soft, nontender with normal bowel sounds. Extremities: No edema. Distal pulses intact. Neurologic: No focal findings. Gait is steady. Skin: No rash, ecchymoses or petechiae. Results & Data ([facility]) Vital Signs (Past 12 Hours) Vital Signs Temp Pulse Pulse Pulse Resp BP BP 03/03/21 11:03 36.7 C 81 20 155/80 H 03/03/21 08:00 76 03/03/21 07:10 37.0 C 82 18 182/70 H 03/03/21 05:41 84 03/03/21 03:55 36.9 C 79 18 158/89 H Pulse Ox 03/03/21 11:03 96 03/03/21 08:00 03/03/21 07:10 94 03/03/21 05:41 03/03/21 03:55 95 Laboratory Results Cardiac Enzymes 03/03/21 Range/Units 06:41 AST 120 H (15-37) U/L CBC 03/03/21 Range/Units 06:41 WBC 8.73 (4.8-10.8) K/uL RBC 4.07 L (4.7-6.1) M/uL Hgb 13.7 L (14.0-18.0) g/dL Hct 43.4 (42-52) % Plt Count 235 (130-400) K/uL Neut # (Auto) 6.65 H (1.4-6.5) K/uL Lymph # (Auto) 0.81 L (1.2-3.4) K/uL Winkler # (Auto) 1.24 H (0.11-0.59) K/uL Eos # (Auto) 0.01 (0-0.5) K/uL Baso # (Auto) 0.01 (0-0.2) K/uL Comprehensive Metabolic Panel 03/03/21 03/03/21 Range/Units 06:41 11:38 Sodium 143 140 (136-145) mmol/L Potassium 4.3 4.0 (3.5-5.1) mmol/L Chloride 106 105 (98-107) mmol/L Carbon Dioxide 26 27 (21-32) mmol/L BUN 11 9 (7-18) mg/dl Creatinine 0.88 0.99 (0.6-1.4) mg/dl Glucose 102 H 149 H (70-99) mg/dl Calcium 8.2 L 8.6 (8.5-10.1) mg/dl AST 120 H (15-37) U/L ALT 168 H (12-78) U/L Alkaline Phosphatase 95 (45-117) U/L Total Protein 6.1 L (6.4-8.2) gm/dl Albumin 2.6 L (3.4-5.0) gm/dl Intake and Output 03/02/21 03/03/21 03/03/21 22:59 06:59 14:59 Intake Total 2288.333 / 4518.333 1140.000 / 4518.333 878.333 / 878.333 Output Total 160 / 560 400 / 560 400 / 400 Balance 2128.333 / 3958.333 740.000 / 3958.333 478.333 / 478.333 Intake: IV 1088.333 / 3218.333 1040.000 / 3218.333 878.333 / 878.333 Nss + 20Meq KCl 20 meq In 1,000 973.333 / 2873.333 925.000 / 2873.333 763.333 / 763.333 ml @ 100 mls/hr IV .Q10H NIGEL Rx#:[id number] Piperacillin/Tazobactam 3.375 115 / 345 115 / 345 115 / 115 gm In Dextrose 5% 100 ml @ 28. 75 mls/hr IV Q8H NIGEL Rx#: [id number] IV Perioperative 1200 / 1200 Oral 100 / 100 Output: Urine 150 / 550 400 / 550 400 / 400 Estimated Blood Loss 10 Other: Other Intake Source npo Weight 80.4 kg Weight Measurement Method Built in [facility] Diagnostic Findings Telemetry: Mostly SR but brief rate controlled AF this morning. PG Care Time/CCT Total # of Minutes Spent Total Time Spent with Patient: Total time spent is greater than 50% in coordination of care (as documented) at patient's floor/unit and/or counseling patient: Coding Level of Care Code 52661 Subseq Hosp Care Lvl 2 Diagnoses Paroxysmal atrial fibrillation I48.0 Anticoagulant long-term use Z79.01
[2021-03-03] MEDS: METOPROLOL TARTRATE 25 MG TAB PO SCH ×2 (13:46→20:33)
--- NOTE | 2021-03-03 14:28 | Surgery Progress Note ---
Date of Service March 03, 2021 Assessment & Plan (1) Acute cholecystitis: Plan: POD # 1 s/p laparoscopic cholecystectomy and ERCP with biliary sphincterotomy and metal stent placement - afebrile, vss other than hypertensive - abdomen soft, tender at incision sites - t. bili, lfts improving - No leukocytosis Plan: Can advance diet as tolerated incentive spirometer given cough and pneumonia continue IV abx repeat am labs cbc, cmp to monitor LFTs Continue Lovenox for DVT prophylaxis Continue pain management as needed (2) Acute gallstone pancreatitis: Plan: s/p ERCP with sphincterotomy and biliary stent placement lfts and t. bili improved plan as above Dr. shelley has seen patient and agrees with above. Admission and Anticipated Discharge Date Admission Date: February 28, 2021 Subjective feeling better in regards to abdominal pain, preoperative pain has resolved coughing with phlegm production, pain in abdomen when coughing urinating without difficulty no bowel movement yet no shortness of breath or chest pain tolerated clear liquids for breakfast Physical Exam Constitutional: WD/WN, vitals as above no acute distress and not ill appearing Respiratory: normal respiratory effort and + cough; no respiratory distress, no labored breathing and no retractions Auscultation: lungs clear to auscultation bilaterally; no crackles, no rales, no rhonchi and no wheezes Cardiovascular: Rate/Rhythm: + irregularly irregular Gastrointestinal (Abdomen): Inspection/Auscultation: abdomen normal to inspection and + hypoactive bowel sounds; abdomen not distended Percussion/Palpation: + abdomen tender (at incision sites) and abdomen soft; no guarding and abdomen not rigid Skin: no rashes, warm and dry + incision (covered with dry dressings) Psychiatric: Orientation: alert and oriented x 3 Results & Data ([facility]) Vital Signs (Past 12 Hours) Vital Signs Temp Pulse Pulse Pulse Resp BP BP 03/03/21 11:03 36.7 C 81 20 155/80 H 03/03/21 08:00 76 03/03/21 07:10 37.0 C 82 18 182/70 H 03/03/21 05:41 84 03/03/21 03:55 36.9 C 79 18 158/89 H Pulse Ox 03/03/21 11:03 96 03/03/21 08:00 03/03/21 07:10 94 03/03/21 05:41 03/03/21 03:55 95 Laboratory Results 03/03/21 03/03/21 03/03/21 Range/Units 11:38 06:41 06:41 WBC 8.73 (4.8-10.8) K/uL RBC 4.07 L (4.7-6.1) M/uL Hgb 13.7 L (14.0-18.0) g/dL POC Hgb (14.0-18.0) g/dl Hct 43.4 (42-52) % POC Hct (42-52) % MCV 106.6 H (80-100) fL MCH 33.7 (25-34) pg MCHC 31.6 L (32-36) g/dL RDW Std Deviation 54.0 H (36.4-46.3) fL RDW Coeff of Francine 13.8 (11.5-14.5) % Plt Count 235 (130-400) K/uL MPV 10.3 (7.4-10.4) fL Immature Gran % (Auto) 0.1 % Neut % (Auto) 76.2 % Lymph % (Auto) 9.3 % [place] % (Auto) 14.2 % Eos % (Auto) 0.1 % Baso % (Auto) 0.1 % Neut # (Auto) 6.65 H (1.4-6.5) K/uL Lymph # (Auto) 0.81 L (1.2-3.4) K/uL [place] # (Auto) 1.24 H (0.11-0.59) K/uL Eos # (Auto) 0.01 (0-0.5) K/uL Baso # (Auto) 0.01 (0-0.2) K/uL Immature Gran # (Auto) 0.01 (0.00-0.02) K/uL POC Sodium (135-144) mmol/L Sodium 140 143 (136-145) mmol/L POC Potassium (3.3-5.0) mmol/L Potassium 4.0 4.3 (3.5-5.1) mmol/L POC Chloride (101-112) mmol/L Chloride 105 106 (98-107) mmol/L Carbon Dioxide 27 26 (21-32) mmol/L POC Total CO2 (24-31) mmol/L Anion Gap 8.0 11.0 (3-11) POC Anion Gap (16-25) mmol/L POC BUN (7-18) mg/dl BUN 9 11 (7-18) mg/dl Creatinine 0.99 0.88 (0.6-1.4) mg/dl POC Creatinine (0.6-1.3) mg/dl Est Cr Clr Drug Dosing 61.5 69.2 ml/min Est GFR ( Amer) 84.2 95.4 ml/min Est GFR (Non-Af Amer) 72.6 82.3 ml/min BUN/Creatinine Ratio 8.6 L 12.9 (10-20) Glucose 149 H 102 H (70-99) mg/dl POC Glucose (other) (70-99) mg/dl Calcium 8.6 8.2 L (8.5-10.1) mg/dl POC Ioniz Calcium Ray (1.12-1.32) mmol/l Magnesium 2.1 (1.8-2.4) mg/dl Total Bilirubin 4.6 H (0.2-1) mg/dl AST 120 H (15-37) U/L ALT 168 H (12-78) U/L Alkaline Phosphatase 95 (45-117) U/L NT-Pro-B Natriuret Pep 1915 H (0-1800) pg/ml Total Protein 6.1 L (6.4-8.2) gm/dl Albumin 2.6 L (3.4-5.0) gm/dl Globulin 3.5 (2.5-4.0) gm/dl Albumin/Globulin Ratio 0.7 L (0.9-2) 02/28/ Range/Units 18:13 WBC (4.8-10.8) K/uL RBC (4.7-6.1) M/uL Hgb (14.0-18.0) g/dL POC Hgb 17.7 (14.0-18.0) g/dl Hct (42-52) % POC Hct 52 (42-52) % MCV (80-100) fL MCH (25-34) pg MCHC (32-36) g/dL RDW Std Deviation (36.4-46.3) fL RDW Coeff of Francine (11.5-14.5) % Plt Count (130-400) K/uL MPV (7.4-10.4) fL Immature Gran % (Auto) % Neut % (Auto) % Lymph % (Auto) % [place] % (Auto) % Eos % (Auto) % Baso % (Auto) % Neut # (Auto) (1.4-6.5) K/uL Lymph # (Auto) (1.2-3.4) K/uL [place] # (Auto) (0.11-0.59) K/uL Eos # (Auto) (0-0.5) K/uL Baso # (Auto) (0-0.2) K/uL Immature Gran # (Auto) (0.00-0.02) K/uL POC Sodium 141 (135-144) mmol/L Sodium (136-145) mmol/L POC Potassium 3.9 (3.3-5.0) mmol/L Potassium (3.5-5.1) mmol/L POC Chloride 102 (101-112) mmol/L Chloride (98-107) mmol/L Carbon Dioxide (21-32) mmol/L POC Total CO2 23 L (24-31) mmol/L Anion Gap (3-11) POC Anion Gap 21.0 (16-25) mmol/L POC BUN 18 (7-18) mg/dl BUN (7-18) mg/dl Creatinine (0.6-1.4) mg/dl POC Creatinine 1.1 (0.6-1.3) mg/dl Est Cr Clr Drug Dosing ml/min Est GFR ( Amer) ml/min Est GFR (Non-Af Amer) ml/min BUN/Creatinine Ratio (10-20) Glucose (70-99) mg/dl POC Glucose (other) 134 H (70-99) mg/dl Calcium (8.5-10.1) mg/dl POC Ioniz Calcium Ray 1.15 (1.12-1.32) mmol/l Magnesium (1.8-2.4) mg/dl Total Bilirubin (0.2-1) mg/dl AST (15-37) U/L ALT (12-78) U/L Alkaline Phosphatase (45-117) U/L NT-Pro-B Natriuret Pep (0-1800) pg/ml Total Protein (6.4-8.2) gm/dl Albumin (3.4-5.0) gm/dl Globulin (2.5-4.0) gm/dl Albumin/Globulin Ratio (0.9-2)
[2021-03-04] MEDS: PIPERACILLIN/TAZOBACTAM 3.375 GM in DEXTROSE 5% 100 ML IV SCH (06:03)
[2021-03-04] MEDS: METOPROLOL TARTRATE 25 MG TAB PO SCH (07:56)
[2021-03-04] MEDS: ACETAMINOPHEN 325 MG TAB PO PRN (07:58)
[2021-03-04 08:04] LABS: Basophils # (auto) 0.01 K/uL (0-0.2); Basophils % (auto) 0.1 %; Eosinophils # (auto) 0.05 K/uL (0-0.5); Eosinophils % (auto) 0.7 %; Hematocrit (blood only) 41.6 % (42-52); Hemoglobin 13.2 g/dL (14.0-18.0); Immature Granulocytes # (auto) 0.02 K/uL (0.00-0.02); Immature Granulocytes % (auto) 0.3 %; Lymphocytes # (auto) 0.92 K/uL (1.2-3.4); Lymphocytes % (auto) 13.2 %; Mean Corpuscular Hemoglobin 33.2 pg (25-34); Mean Corpuscular Hgb Conc 31.7 g/dL (32-36); Mean Corpuscular Volume 104.5 fL (80-100); Mean Platelet Volume 10.2 fL (7.4-10.4); Monocytes # (auto) 1.12 K/uL (0.11-0.59); Monocytes % (auto) 16.1 %; Neutrophils # (auto) 4.83 K/uL (1.4-6.5); Neutrophils % (auto) 69.6 %; Platelet Count 258 K/uL (130-400); RDW Coefficient of Variation 13.7 % (11.5-14.5); RDW Standard Deviation 52.2 fL (36.4-46.3); Red Blood Count 3.98 M/uL (4.7-6.1); White Blood Count 6.95 K/uL (4.8-10.8)
[2021-03-04 08:35] LABS: Albumin Level 2.4 gm/dl (3.4-5.0); BUN Creatinine Ratio 7.8 (10-20); Calcium 8.9 mg/dl (8.5-10.1); Creatinine Clr Calc Pharmacy 66.9 ml/min; Est GFR (African American) 93.2 ml/min; Est GFR (Non-African American) 80.4 ml/min; Potassium 3.7 mmol/L (3.5-5.1)
[2021-03-04 08:42] LABS: Albumin Globulin Ratio 0.7 (0.9-2); Bilirubin,Total 3.1 mg/dl (0.2-1); Globulin 3.6 gm/dl (2.5-4.0)
[2021-03-04] MEDS ORDERED: APIXABAN 5 MG TABLET PO SCH (09:00)
--- NOTE | 2021-03-04 11:28 | Cardiology Progress Note ---
Date of Service March 04, 2021 Assessment & Plan (1) Paroxysmal atrial fibrillation: (2) Anticoagulant long-term use: Plan: 1. Paroxysmal atrial fibrillation: He clearly has atrial fibrillation, it was present when he was first evaluated in the emergency room this admission and lasted for about 4 hours. I suspect also that it was present in May 2020 but cannot confirm it because an electrocardiogram was not done and he is asymptomatic. He also has had several other brief episodes, also asymptomatic, including this morning. I agree with the use of his anticoagulant, and he is currently on Eliquis at an appropriate dose. His HR is well controlled already. 2. Anticoagulation: I would maintain anticoagulation for stroke prevention, Eliquis is appropriate.. Admission and Anticipated Discharge Date Admission Date: February 28, 2021 Subjective He is feeling better today, he has not moved his bowels as yet however. He has had no palpitations and no awareness of atrial fibrillation. Physical Exam Physical Exam: Constitutional: Alert, cooperative and in no distress. HEENT: Unremarkable Neck: No jugular venous distention, carotid pulses are normal and equal bilaterally without bruits. Pulmonary: Clear to auscultation bilaterally. Cardiac: Regular rhythm with no murmur, gallop or rub. Abdomen: Soft, nontender with normal bowel sounds. Extremities: No edema. Distal pulses intact. Neurologic: No focal findings. Gait is steady. Skin: No rash, ecchymoses or petechiae. Results & Data ([facility]) Vital Signs (Past 12 Hours) Vital Signs Temp Pulse Pulse Resp BP BP Pulse Ox 03/04/21 07:50 78 03/04/21 07:36 35.9 C L 83 20 177/103 H 90 03/04/21 07:07 36.7 C 99 H 18 157/81 H 93 03/04/21 03:04 36.9 C 87 18 136/71 92 03/04/21 02:35 97 H Laboratory Results Cardiac Enzymes 03/04/21 Range/Units 07:50 AST 63 H (15-37) U/L CBC 03/04/21 Range/Units 07:50 WBC 6.95 (4.8-10.8) K/uL RBC 3.98 L (4.7-6.1) M/uL Hgb 13.2 L (14.0-18.0) g/dL Hct 41.6 L (42-52) % Plt Count 258 (130-400) K/uL Neut # (Auto) 4.83 (1.4-6.5) K/uL Lymph # (Auto) 0.92 L (1.2-3.4) K/uL [place] # (Auto) 1.12 H (0.11-0.59) K/uL Eos # (Auto) 0.05 (0-0.5) K/uL Baso # (Auto) 0.01 (0-0.2) K/uL Comprehensive Metabolic Panel 03/03/21 03/04/21 Range/Units 11:38 07:50 Sodium 140 142 (136-145) mmol/L Potassium 4.0 3.7 (3.5-5.1) mmol/L Chloride 105 105 (98-107) mmol/L Carbon Dioxide 27 30 (21-32) mmol/L BUN 9 7 (7-18) mg/dl Creatinine 0.99 0.91 (0.6-1.4) mg/dl Glucose 149 H 108 H (70-99) mg/dl Calcium 8.6 8.9 (8.5-10.1) mg/dl AST 63 H (15-37) U/L ALT 119 H (12-78) U/L Alkaline Phosphatase 85 (45-117) U/L Total Protein 6.0 L (6.4-8.2) gm/dl Albumin 2.4 L (3.4-5.0) gm/dl Intake and Output 03/03/21 03/04/21 03/04/21 22:59 06:59 14:59 Intake Total 395 / 2498.333 215 / 2498.333 115 / 115 Balance 395 / 2098.333 215 / 2098.333 115 / 115 Intake: IV 115 / 1108.333 115 / 1108.333 115 / 115 Piperacillin/Tazobactam 3.375 115 / 345 115 / 345 115 / 115 gm In Dextrose 5% 100 ml @ 28. 75 mls/hr IV Q8H [facility] Rx#: [id number] Oral 280 / 1390 100 / 1390 Other: # Unmeasured Voids 2 Weight 81 kg Weight Measurement Method Standing Scale Diagnostic Findings Telemetry: Predominantly sinus rhythm with occasional brief episodes of atrial fibrillation with a slightly increased heart rate. PG Care Time/CCT Total # of Minutes Spent Total Time Spent with Patient: Total time spent is greater than 50% in coordination of care (as documented) at patient's floor/unit and/or counseling patient: Coding Level of Care Code 78916 Subseq Hosp Care Lvl 2 Diagnoses Paroxysmal atrial fibrillation I48.0 Anticoagulant long-term use Z79.01
--- NOTE | 2021-03-04 13:19 | Surgery Progress Note ---
Date of Service March 04, 2021 Assessment & Plan (1) Acute cholecystitis: Plan: POD # 2 s/p laparoscopic cholecystectomy and ERCP with biliary sphincterotomy and metal stent placement - afebrile, vss other than hypertensive - abdomen soft, mildly distended, tender at incision sites - t. bili, lfts improving - No leukocytosis Plan: Can advance diet as tolerated continue IV abx repeat am labs cbc, cmp to monitor LFTs Continue pain management as needed ambulate hallway continue incentive spirometer Eliquis started for Afib (2) Acute gallstone pancreatitis: Plan: s/p ERCP with sphincterotomy and biliary stent placement lfts and t. bili continue to improve plan as above Admission and Anticipated Discharge Date Admission Date: February 28, 2021 Subjective patient feeling well today minimal pain, controlled with Tylenol no n/v tolerated full liquids diet passing gas, no bowel movement yet no shortness of breath or chest pain Physical Exam Constitutional: WD/WN, vitals as above Respiratory: normal respiratory effort; no respiratory distress, no labored breathing and no retractions Gastrointestinal (Abdomen): Inspection/Auscultation: abdomen normal to inspection, + abdomen distended (mild) and + abdominal surgical incision (covered with dry dressings) Percussion/Palpation: + abdomen tender (at incision sites) and abdomen soft; no guarding and abdomen not rigid Skin: no rashes, warm and dry + incision (covered with dry intact dressings) Psychiatric: A+Ox3, euthymic affect Results & Data ([facility]) Vital Signs (Past 12 Hours) Vital Signs Temp Pulse Pulse Resp BP BP Pulse Ox 03/04/21 11:00 36.4 C L 85 24 140/85 93 03/04/21 07:50 78 03/04/21 07:36 35.9 C L 83 20 177/103 H 90 03/04/21 07:07 36.7 C 99 H 18 157/81 H 93 03/04/21 03:04 36.9 C 87 18 136/71 92 03/04/21 02:35 97 H Laboratory Results 03/04/21 03/04/21 Range/Units 07:50 07:50 WBC 6.95 (4.8-10.8) K/uL RBC 3.98 L (4.7-6.1) M/uL Hgb 13.2 L (14.0-18.0) g/dL Hct 41.6 L (42-52) % MCV 104.5 H (80-100) fL MCH 33.2 (25-34) pg MCHC 31.7 L (32-36) g/dL RDW Std Deviation 52.2 H (36.4-46.3) fL RDW Coeff of Francine 13.7 (11.5-14.5) % Plt Count 258 (130-400) K/uL MPV 10.2 (7.4-10.4) fL Immature Gran % (Auto) 0.3 % Neut % (Auto) 69.6 % Lymph % (Auto) 13.2 % [place] % (Auto) 16.1 % Eos % (Auto) 0.7 % Baso % (Auto) 0.1 % Neut # (Auto) 4.83 (1.4-6.5) K/uL Lymph # (Auto) 0.92 L (1.2-3.4) K/uL [place] # (Auto) 1.12 H (0.11-0.59) K/uL Eos # (Auto) 0.05 (0-0.5) K/uL Baso # (Auto) 0.01 (0-0.2) K/uL Immature Gran # (Auto) 0.02 (0.00-0.02) K/uL Sodium 142 (136-145) mmol/L Potassium 3.7 (3.5-5.1) mmol/L Chloride 105 (98-107) mmol/L Carbon Dioxide 30 (21-32) mmol/L Anion Gap 7.0 (3-11) BUN 7 (7-18) mg/dl Creatinine 0.91 (0.6-1.4) mg/dl Est Cr Clr Drug Dosing 66.9 ml/min Est GFR ( Amer) 93.2 ml/min Est GFR (Non-Af Amer) 80.4 ml/min BUN/Creatinine Ratio 7.8 L (10-20) Glucose 108 H (70-99) mg/dl Calcium 8.9 (8.5-10.1) mg/dl Total Bilirubin 3.1 H (0.2-1) mg/dl AST 63 H (15-37) U/L ALT 119 H (12-78) U/L Alkaline Phosphatase 85 (45-117) U/L Total Protein 6.0 L (6.4-8.2) gm/dl Albumin 2.4 L (3.4-5.0) gm/dl Globulin 3.6 (2.5-4.0) gm/dl Albumin/Globulin Ratio 0.7 L (0.9-2)
--- NOTE | 2021-03-04 14:05 | Discharge Summary ---
Date of Service March 04, 2021 Admission HPI Per Admitting Provider The patient is a 80-year-old male with past medical history including cervical spinal stenosis, epistaxis, and leg cramps. He presents with symptoms as noted above. He never had symptoms. He does feel generally weak as well. Work-up in the emergency department included the following abnormal laboratories: Total bilirubin 3.9, AST 227, ALT 188, lipase 3113 and glucose 127. EKG shows atrial fibrillation with RVR at 103 COVID-19 testing is pending at this time. The patient did become somewhat hypoxic, changed from 96% to 76% after receiving morphine 4 mg IV, and chest x-ray is pending Admission Exam Per Admitting Provider The patient is awake, alert and oriented 3, normocephalic and atraumatic, lying in bed and in no acute distress. HEENT--PERRL, EOMI, mucous membranes and oropharynx dry. Neck--supple. No JVD. No bruits. Thyroid normal, trachea midline, no adenopathy. Heart--normal S1 and S2. No murmurs, rubs or gallops. Lungs--clear bilaterally, no respiratory distress, no accessory muscle use. Abdomen--normal bowel sounds and soft. Nontender post morphine IV. Nondistended Extremities--no cyanosis or clubbing. No edema. Dermatologic--normal skin turgor, normal color, no abnormal lymph nodes, no rash. Neurologic--cranial nerves II through XII grossly intact. Rheumatologic--normal range of motion. Psychiatric--normal affect. Principal Diagnosis acute cholecystitis Discharge Exam Constitutional well developed, well nourished, cooperative and comfortable; no acute distress Eyes + scleral abnormality (Scleral icterus noted on exam.) Neck normal visual inspection and trachea midline Thyroid: normal thyroid Respiratory normal respiratory effort, lungs clear to auscultation Cardiovascular Rate/Rhythm: + irregularly irregular Heart Sounds: normal S1 and normal S2 Vessels: no JVD Extremities: no edema Gastrointestinal (Abdomen) Inspection/Auscultation: normal bowel sounds Percussion/Palpation: + abdomen tender (RUQ and periumbilical. Reduced.) and abdomen soft Musculoskeletal Head/Neck/Chest: normocephalic Skin no rashes, warm and dry Psychiatric A+Ox3, euthymic affect Discharge Data Allergies Allergy/AdvReac Type Severity Reaction Status Date / Time No Known Drug Allergies Allergy Unknown Verified 02/28/21 17:43 Consultations 02/28/21 19:38 Consult General Surgery Stat ED Decision to Admit Stat 03/01/21 01:46 Consult Cardiology Routine 03/01/21 17:52 Consult Gastroenterology Routine Procedures Performed Operation Date: 03/02/21 11:00 Actual Procedures p Endoscopic Retrograde Cholangiopancreatography(Not Applicable) - Neo Arias MD s Laparoscopic Cholecystectomy(Not Applicable) - Moy Haskins MD Ordered Studies 02/28/21 17:45 CT abd pelvis IV con only Stat 03/01/21 00:17 CT angio chest PE protocol Stat 03/01/21 09:41 MR MRCP Routine 03/01/21 17:52 US abdomen limited Routine 03/02/21 [place] ERCP biliary ductal Routine Hospital Course (1) Acute cholecystitis: 1) Acute Cholecystitis with cholelithiasis -S/p cholecystectomy and ERCP 2 days ago -received zosyn during his stay, stopped at discharge -F/u with PCP within one week. Repeat CMP in 2-3 weeks because of elevated bilirubin and liver enzymes during stay. -F/u with general surgery in 2 weeks -Pt can eat a full diet as tolerated -No heavy lifting for 4 weeks -Pt can take 500 mg tylenol tid prn for pain 2) Paroxysmal Atrial Fibrillation -Paroxysmal Afib was discovered during hospital visit. -echo with normal EF, mild LVF, mild MR. -Pt was started on metoprolol 25mg and eliquis 5mg bid. -He was in sinus rhythm on discharge. -Pt's celebrex was discontinued due to anticoagulation (2) Atrial fibrillation with rapid ventricular response: Total Time Total Time Spent Total Time Spent (In Minutes): 30 Discharge Plan Discharge Items Patient Disposition: Home - Self-Care Reason For Visit: GALLSTONE PANCREATITIS, ATRIAL FIBRILLATION Discharge Diagnosis: Acute Cholecystitis Condition on Discharge: Good Activity: Per Instructions section Non-emergency contact: Primary Care Provider and Surgeon Call non-emergency contact if: your pain is not controlled, your pain is worsening, your temperature is above 101, your wound has increased redness and your wound has increased drainage Follow-up/Referrals: Scout Tomlin MD [Primary Care Provider] - 03/12/21 3:45 pm Diet: Regular Addtl Attending Provider Instructions: You had a cholecystectomy performed while at the hospital. For the firs month after surgery, it is best to have a low fat diet as this could trigger loose stools. You had elevated liver enzymes and bilirubin during your stay that has improved. We want you to get repeat labs of liver function and bilirubin by your primary care provider in 2-3 weeks. It is also recommended that you avoid heavy lifting for the next 4 weeks. Also during your stay, you were found to have an arrhythmia called atrial fibrillation. In your case it comes and goes. You were started on metoprolol to control this rhythm and you were started on eliquis for anticoagulation. It is recommended that you do not take NSAIDs like ibuprofen or celebrex while on this medication as it can increase your risk for bleeding. You were also started on lisinopril for your blood pressure as it was elevated during your stay. Follow up with your primary care provider within 1 week and follow up with general surgery as they see fit to see you. Addtl Manager Integrated Provider Instructions: Post-Surgical ~Discharge Instructions Activity Recommendations: - lifting limitation: (20 pounds for 4 weeks), - exercise/sex/sports limit: (nonstrenuous for 2 weeks), - driving or machine use limit: (none for 1 week or until pain free and no longer taking narcotic pain medication), - Shower/bathe limit: (may shower) Diet: - Resume previous diet SPECIAL CARE INSTRUCTIONS: - May shower. Let water run over area and pat dry. no submerging incisions underwater for 2 weeks - Leave steri strips on for one week and then remove. - Call the surgeon's office with any questions or concerns - - (ex. temperature higher than 101 degrees F, excessive bleeding or pain). MEDICATIONS: - Resume previous medications unless instructed otherwise by your surgeon. - May take extra strength Tylenol as needed for pain. -500-650 mg of Tylenol every 6 hours as needed FOLLOW UP VISIT: - If not already scheduled, please call the office to schedule a two week follow-up appointment. Office number Pending Studies at Discharge: No Stand-Alone Forms: My scoo mobility, Smoking Cessation Medications and DC Order Prescriptions: New Eliquis 5 mg tablet 5 mg PO BID Qty: 60 RF: 0 lisinopril 10 mg tablet 10 mg PO DAILY Qty: 30 RF: 3 metoprolol succinate 25 mg tablet extended release 24 hr 25 mg PO DAILY Qty: 30 RF: 3 Continued cyclobenzaprine 10 mg tablet 10 mg PO TID PRN (Reason: Muscle Spasm) RF: 0 quinidine sulfate 200 mg tablet 200 mg PO DAILY PRN (Reason: cramping) RF: 0 Discontinued celecoxib 200 mg capsule 200 mg PO BID RF: 0 Discharge Orders: Discharge Order (Routine); Ordered 03/04/21 Ordered By: Dexter Schneider/Other Patient Handouts: Cholecystectomy, Understanding Atrial Fibrillation Admission Data Admit Date/Time: 02/28/21 21:46 Attending Provider: Emerita Lu Admit Provider: Pietro Cruz Primary Care Provider: Scout Tomlin Other Providers: Moy Haskins ; Pietro Cruz ; Tex Schulte ; Chandra Mayberry Other Interventions: Discharge Summary Assessment (RN) Last Done: 03/04/21 14:21 Supervising Physician Co-Signing Physician Notes Resident Physician Supervision Note: I independently interviewed and examined the patient and verified the bosch history and physical, reviewed labs and image studies and agree with resident Dr. Goldstein findings and care plan.
== END 2021-03-04 15:38 | disposition home or self-care (01) | DRG 417 ==
LOC: ED 16:46 → 2N 21:46 → SUATTDRO 21:46 → 2N 03-01 01:29
DX: I48.0 Paroxysmal atrial fibrillation; J98.11 Atelectasis; K80.01 Calculus of gallbladder with acute cholecystitis with obstruction; F17.200 Nicotine dependence, unspecified, uncomplicated; M48.02 Spinal stenosis, cervical region; J90 Pleural effusion, not elsewhere classified; Z79.01 Long term (current) use of anticoagulants; Z85.51 Personal history of malignant neoplasm of bladder; K85.10 Biliary acute pancreatitis without necrosis or infection; J18.9 Pneumonia, unspecified organism

== ENCOUNTER 2021-03-09 14:25 | Observation (INO) ==
[2021-03-09] MEDS ORDERED: ONDANSETRON INJ 2 MG/ML 2 ML VIAL IV STA (14:40)
[2021-03-09] MEDS ORDERED: FAMOTIDINE 20MG IV PUSH 20 MG/5 ML SYR IV STA (14:40)
[2021-03-09] MEDS ORDERED: PANTOprazole 80 MG in DEXTROSE 5% 100 ML IV ONE (14:40)
[2021-03-09] MEDS ORDERED: PANTOprazole 40 MG in DEXTROSE 5% 100 ML IV SCH (14:45)
[2021-03-09] MEDS ORDERED: SODIUM CHLORIDE 0.9% 500 ML IV SCH (14:45)
--- NOTE | 2021-03-09 14:47 | Emergency Department Note ---
Impression & Plan Hypotension, Hematemesis, Black stool, Acute GI bleeding, Coagulopathy ED Provider Note NAME: PEG KAUR AGE: 80 SEX: M : 1940 ARRIVES VIA: Ambulance INFORMANT: [Patient][ems] ED PROVIDER(S): [Romeo Park MD] CHIEF COMPLAINT: GI assessment HISTORY OF PRESENT ILLNESS: The patient is a 80-year-old male presents to the ER by EMS for black liquidy stool and bloody vomitus. Patient was discharged from our hospital 5 days ago after acute cholecystitis. His gallbladder was removed. He has been recovering at home. Yesterday morning, he had some black stool but then seemed okay throughout the day. He states that this morning, he began with liquidy bloody stool and began vomiting coffee-ground material. He feels overall weak and mildly short of breath. No chest pain. There is some mild diffuse abdominal pain but he states this has been present since undergoing his gallbladder surgery. He is on Eliquis. The patient states that he has not had fever or cough. He has no history of previous GI bleeding. REVIEW OF SYSTEMS: See HPI for pertinent positives and negatives. A total of ten systems were reviewed and were otherwise negative. PMHx/PSHx: See Below SOCIAL HISTORY: See Below. PHYSICAL EXAM: GENERAL: Patient is in no acute distress. HEENT: No acute trauma, normocephalic atraumatic, mucous membranes moist, no nasal congestion, no scleral icterus. NECK: No stridor, no adenopathy, no meningismus, trachea is midline. LUNGS: Clear to auscultation bilaterally, no wheeze, no rhonchi, breath sounds equal. HEART: Without murmurs gallops or rubs, regular rate and rhythm. ABDOMEN: Soft, mildly diffusely tender. His surgical wounds are without erythema or signs of infection. EXTREMITIES: No cyanosis or edema, full range of motion of all the joints without pain or difficulty, no signs for acute trauma. NEUROLOGIC: Oriented x 3, no acute motor or sensory deficits, no focal weakness. SKIN: No rash, no jaundice, no diaphoresis. Rectal: Black, liquidy stool, heme positive. DIFFERENTIAL DIAGNOSIS: Diverticulosis, AVM, coagulopathy, colitis, inflammatory bowel disease, malignancy, Emily-Rivas tear, esophagitis, peptic ulcer disease, variceal bleed, gastritis, epistaxis, fissure, hemorrhoids, as well as other pathologies. EMERGENCY DEPARTMENT COURSE/PROCEDURES: ECG: Indication was GI bleeding. The ECG shows a sinus rhythm with some PVCs. There is some nonspecific ST change. The rate is 79. There is no ST elevation. The QTc is 415. Continuous Cardiac Monitoring: An order was placed for continuous cardiac monitoring. The monitor shows a rate of 78 with sinus rhythm with PVCs. Critical Care Note: I have personally spent 53 minutes of critical care time in the direct management of this patient. This includes bedside care, interpretation of diagnostic studies, and testing, discussion with consultants, patient, and family members, and other required patient management activities. This 53 minutes is in excess of all separately billable procedures. MEDICAL DECISION MAKING: There is no leukocytosis. The patient does have a hemoglobin of 11, this is a two-point drop for him. There is a normal platelet count. No coagulopathy by laboratory testing. BUN is slightly elevated which would be consistent with upper GI bleeding. There was no renal failure. There was some elevation to the liver enzymes consistent with his recent acute cholecystitis and cholec ystectomy. Lipase was normal. ECG showed a sinus rhythm with PVCs, no acute ischemia. Cardiac enzyme testing x1 was not consistent with acute cardiac injury. Covid testing was negative. Chest film showed improvement compared to previous films, no obvious pneumonia. On exam, the patient's stool was black in color and did test heme positive. The patient was given 1 L of IV saline for hydration. He received IV Protonix as a bolus and then was placed on a Protonix drip. He received IV PCC as ordered by our coagulation tour consultant. Patient was given IV Zofran for nausea. The patient is not in need of any emergent blood transfusion. His hemoglobin will need to be followed closely of course. He is at higher risk of complication given his Eliquis use. Patient is aware of all his findings. I did speak with case operator. I spoke with GI. The on-call hospitalist has been consulted. The patient is likely to be admitted to the intensive care unit. 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 Prostate nodule Skin cancer Varicose veins with inflammation Surgical History No pertinent past surgical history Family History Denies family history of Hearing loss No family history of adverse response to anesthesia No family history of bleeding disorder Heart disease Allergies Cancer Hypertension Stroke Asthma Social History Smoking Status: Never smoker Tobacco Type: Smokeless Tobacco (Dip or Chew) Second Hand Exposure: No; Hx Alcohol Use: Yes Alcohol type: beer Alcohol Intake Frequency Comment: 6 pack a week Hx Substance Use: No Preferred Language: Andorran Communication Ability: Effective Finance Professional Required: No Beliefs That Will Affect Care: None marital status: / Current Living Situation: Alone current occupational status: retired Feels Safe at Home: Yes Assistive Devices: None Allergies Allergies Allergy/AdvReac Type Severity Reaction Status Date / Time No Known Drug Allergies Allergy Unknown Verified 03/09/21 14:53 Home Meds Home Medications Medication Instructions Recorded Confirmed cyclobenzaprine 10 mg tablet 10 mg PO TID PRN 02/28/21 03/09/21 quinidine sulfate 200 mg tablet 200 mg PO DAILY PRN 02/28/21 03/09/21 Previous Rx's Medication Instructions Recorded apixaban 5 mg tablet (Eliquis) 5 mg PO BID #60 tab 03/04/21 lisinopril 10 mg tablet 10 mg PO DAILY #30 tab 03/04/21 metoprolol succinate 25 mg 25 mg PO DAILY #30 tab 03/04/21 tablet,extended release 24 hr Results & Data (ED) Vital Signs Vital Signs - 24 hr 03/09/21 14:25 03/09/21 14:48 03/09/21 15:14 Temperature 37.1 C Temperature Source Oral Pulse Rate 83 Pulse Rate [Apical] 82 Pulse Rhythm [Apical] Regular Respiratory Rate 18 16 Respiratory Effort / Characteristics Non-Labored Respiratory Depth Normal Blood Pressure 133/61 Blood Pressure [Right Arm] 98/55 L Blood Pressure Mean 85 Blood Pressure Mean [Right Arm] 69 Blood Pressure Position [Right Arm] Lying Pulse Oximetry 96 94 Oxygen Delivery Method Room Air Room Air Room Air Sepsis Recent Fever Within 48 Hours No Sepsis New/Unexplained Change in Mental Status No Sepsis Action Taken by Nursing No Action Required 03/09/21 15:30 03/09/21 16:00 Temperature Temperature Source Pulse Rate 73 75 Pulse Rate [Apical] Pulse Rhythm [Apical] Respiratory Rate 16 16 Respiratory Effort / Characteristics Respiratory Depth Blood Pressure 96/55 L 106/67 Blood Pressure [Right Arm] Blood Pressure Mean 68 80 Blood Pressure Mean [Right Arm] Blood Pressure Position [Right Arm] Pulse Oximetry 96 100 Oxygen Delivery Method Room Air Room Air Sepsis Recent Fever Within 48 Hours Sepsis New/Unexplained Change in Mental Status Sepsis Action Taken by Assisted Medications Current Medication List: was personally reviewed by me Laboratory Data Attestation: I reviewed the patient's lab results. Result diagrams: 03/09/21 17:42 03/09/21 14:57 Lab Results 03/09/21 03/09/21 03/09/21 Range/Units 14:57 14:57 14:57 WBC 8.23 (4.8-10.8) K/uL RBC 3.42 L (4.7-6.1) M/uL Hgb 11.3 L (14.0-18.0) g/dL Hct 35.4 L (42-52) % MCV 103.5 H (80-100) fL MCH 33.0 (25-34) pg MCHC 31.9 L (32-36) g/dL RDW Std Deviation 51.3 H (36.4-46.3) fL RDW Coeff of Francine 13.7 (11.5-14.5) % Plt Count 390 (130-400) K/uL MPV 9.6 (7.4-10.4) fL Immature Gran % (Auto) 0.2 % Neut % (Auto) 56.9 % Lymph % (Auto) 20.9 % [place] % (Auto) 20.7 % Eos % (Auto) 1.1 % Baso % (Auto) 0.2 % Neut # (Auto) 4.68 (1.4-6.5) K/uL Lymph # (Auto) 1.72 (1.2-3.4) K/uL [place] # (Auto) 1.70 H (0.11-0.59) K/uL Eos # (Auto) 0.09 (0-0.5) K/uL Baso # (Auto) 0.02 (0-0.2) K/uL Immature Gran # (Auto) 0.02 (0.00-0.02) K/uL PT (9.0-12.0) Seconds INR (0.9-1.1) APTT (21.0-31.0) Seconds PTT Ratio Sodium 142 (136-145) mmol/L Potassium 3.9 (3.5-5.1) mmol/L Chloride 108 H (98-107) mmol/L Carbon Dioxide 26 (21-32) mmol/L Anion Gap 8.0 (3-11) BUN 31 H (7-18) mg/dl Creatinine 1.27 (0.6-1.4) mg/dl Est Cr Clr Drug Dosing 47.9 ml/min Est GFR ( Amer) 62.3 ml/min Est GFR (Non-Af Amer) 53.8 ml/min BUN/Creatinine Ratio 24.7 H (10-20) Glucose 100 H (70-99) mg/dl Calcium 9.3 (8.5-10.1) mg/dl Magnesium 2.5 H (1.8-2.4) mg/dl Total Bilirubin 1.3 H (0.2-1) mg/dl AST 126 H (15-37) U/L ALT 135 H (12-78) U/L Alkaline Phosphatase 225 H (45-117) U/L Troponin I < 0.015 (0-0.045) ng/ml Total Protein 6.1 L (6.4-8.2) gm/dl Albumin 2.8 L (3.4-5.0) gm/dl Globulin 3.3 (2.5-4.0) gm/dl Albumin/Globulin Ratio 0.8 L (0.9-2) Lipase 173 (73-393) U/L Stl C. diff Tox B Gene (Neg) COVID-19 Eval Order SARS-CoV-2 (PCR) (Negative) Blood Type A Positive Antibody Screen NEGATIVE 03/09/21 03/09/21 03/09/21 Range/Units 14:57 14:59 14:59 WBC (4.8-10.8) K/uL RBC (4.7-6.1) M/uL Hgb (14.0-18.0) g/dL Hct (42-52) % MCV (80-100) fL MCH (25-34) pg MCHC (32-36) g/dL RDW Std Deviation (36.4-46.3) fL RDW Coeff of Francine (11.5-14.5) % Plt Count (130-400) K/uL MPV (7.4-10.4) fL Immature Gran % (Auto) % Neut % (Auto) % Lymph % (Auto) % [place] % (Auto) % Eos % (Auto) % Baso % (Auto) % Neut # (Auto) (1.4-6.5) K/uL Lymph # (Auto) (1.2-3.4) K/uL [place] # (Auto) (0.11-0.59) K/uL Eos # (Auto) (0-0.5) K/uL Baso # (Auto) (0-0.2) K/uL Immature Gran # (Auto) (0.00-0.02) K/uL PT 10.9 (9.0-12.0) Seconds INR 1.1 (0.9-1.1) APTT 26.8 (21.0-31.0) Seconds PTT Ratio 1.0 Sodium (136-145) mmol/L Potassium (3.5-5.1) mmol/L Chloride (98-107) mmol/L Carbon Dioxide (21-32) mmol/L Anion Gap (3-11) BUN (7-18) mg/dl Creatinine (0.6-1.4) mg/dl Est Cr Clr Drug Dosing ml/min Est GFR ( Amer) ml/min Est GFR (Non-Af Amer) ml/min BUN/Creatinine Ratio (10-20) Glucose (70-99) mg/dl Calcium (8.5-10.1) mg/dl Magnesium (1.8-2.4) mg/dl Total Bilirubin (0.2-1) mg/dl AST (15-37) U/L ALT (12-78) U/L Alkaline Phosphatase (45-117) U/L Troponin I (0-0.045) ng/ml Total Protein (6.4-8.2) gm/dl Albumin (3.4-5.0) gm/dl Globulin (2.5-4.0) gm/dl Albumin/Globulin Ratio (0.9-2) Lipase (73-393) U/L Stl C. diff Tox B Gene Negative Cdiff Gene (Neg) COVID-19 Eval Order Covid19 at [facility] SARS-CoV-2 (PCR) (Negative) Blood Type Antibody Screen 03/09/21 Range/Units 14:59 WBC (4.8-10.8) K/uL RBC (4.7-6.1) M/uL Hgb (14.0-18.0) g/dL Hct (42-52) % MCV (80-100) fL MCH (25-34) pg MCHC (32-36) g/dL RDW Std Deviation (36.4-46.3) fL RDW Coeff of Francine (11.5-14.5) % Plt Count (130-400) K/uL MPV (7.4-10.4) fL Immature Gran % (Auto) % Neut % (Auto) % Lymph % (Auto) % [place] % (Auto) % Eos % (Auto) % Baso % (Auto) % Neut # (Auto) (1.4-6.5) K/uL Lymph # (Auto) (1.2-3.4) K/uL [place] # (Auto) (0.11-0.59) K/uL Eos # (Auto) (0-0.5) K/uL Baso # (Auto) (0-0.2) K/uL Immature Gran # (Auto) (0.00-0.02) K/uL PT (9.0-12.0) Seconds INR (0.9-1.1) APTT (21.0-31.0) Seconds PTT Ratio Sodium (136-145) mmol/L Potassium (3.5-5.1) mmol/L Chloride (98-107) mmol/L Carbon Dioxide (21-32) mmol/L Anion Gap (3-11) BUN (7-18) mg/dl Creatinine (0.6-1.4) mg/dl Est Cr Clr Drug Dosing ml/min Est GFR ( Amer) ml/min Est GFR (Non-Af Amer) ml/min BUN/Creatinine Ratio (10-20) Glucose (70-99) mg/dl Calcium (8.5-10.1) mg/dl Magnesium (1.8-2.4) mg/dl Total Bilirubin (0.2-1) mg/dl AST (15-37) U/L ALT (12-78) U/L Alkaline Phosphatase (45-117) U/L Troponin I (0-0.045) ng/ml Total Protein (6.4-8.2) gm/dl Albumin (3.4-5.0) gm/dl Globulin (2.5-4.0) gm/dl Albumin/Globulin Ratio (0.9-2) Lipase (73-393) U/L Stl C. diff Tox B Gene (Neg) COVID-19 Eval Order SARS-CoV-2 (PCR) NEGATIVE (Negative) Blood Type Antibody Screen Administered Medications Parenteral Electrolytes (Normosol-R) 1,000 mls @ 80 mls/hr IV .[id number] NIGEL Stop: 04/08/21 17:07 Last Admin: 03/09/21 17:56 Dose: 80 mls/hr Documented by: [id number] Discontinued Medications Sodium Chloride (Nss) 500 mls @ 999 mls/hr IV .Q31M NIGEL Stop: 03/09/21 15:15 Last Infusion: 03/09/21 15:51 Dose: 0 mls/hr Documented by: [id number] Admin: 03/09/21 15:17 Dose: 999 mls/hr Documented by: [id number] Pantoprazole Sodium 80 mg/ (Dextrose) 100 mls @ 400 mls/hr IV NOW ONE Stop: 03/09/21 14:54 Last Infusion: 03/09/21 15:35 Dose: 0 mls/hr Documented by: [id number] Admin: 03/09/21 15:20 Dose: 400 mls/hr Documented by: [id number] Pantoprazole Sodium 40 mg/ (Dextrose) 100 mls @ 20 mls/hr IV Q5H NIGEL Stop: 03/09/21 19:44 Last Admin: 03/09/21 15:37 Dose: 8 mg/hr, 20 mls/hr Documented by: [id number] Famotidine (Pepcid 20mg Iv Push) 20 mg in 5 mls @ 2.5 mls/min IV NOW STA Stop: 03/09/21 14:41 Last Admin: 03/09/21 15:37 Dose: 2.5 mls/min Documented by: [id number] Sodium Chloride (Nss 1000ml) 500 mls @ 999 mls/hr IV .Q31M ONE Stop: 03/09/21 15:47 Last Infusion: 03/09/21 16:40 Dose: 0 mls/hr Documented by: [id number] Admin: 03/09/21 15:40 Dose: 999 mls/hr Documented by: [id number] Prothrombin Complex Concent ( (Human) 2,000 units/ Syringe) 80 mls @ 10 mls/min IV NOW ONE; Protocol Stop: 03/09/21 15:52 Last Admin: 03/09/21 15:40 Dose: 10 mls/min Documented by: [id number] Ondansetron HCl (Ondansetron Inj 2 Mg/Ml 2 Ml Vial) 4 mg IV ONE STA Stop: 03/09/21 14:41 Last Admin: 03/09/21 15:17 Dose: 4 mg Documented by: [id number] Imaging Data Radiologist's Impression: Chest X-Ray 03/09/21 14:40 XR chest 1V portable HISTORY: Weakness. COMPARISON: Chest 02/28/2021. FINDINGS: Left basilar linear densities consistent with subsegmental atelectasis. The right lung is clear. The heart is normal in size. No pleural effusions. No pneumothorax. Cervical spinal fusion hardware is noted IMPRESSION: No acute process. ACT 112: Negative or not required by law. Electronically signed by: Navneet Parra M.D. 03/09/2021 3:52 PM Discharge Plan Visit Data Chief Complaint: GI Assessment ED Provider: Romeo Park Discharge Problem: Hypotension, Hematemesis, Black stool, Acute GI bleeding, Coagulopathy Patient Disposition: Admitted As Inpatient Condition: Serious Discharge Instructions Interventions: ED Discharge Assessment Last Done: 03/09/21 16:57 Discharge Problem: Hypotension Qualifiers: Hypotension type: unspecified hypotension type Qualified Code(s): I95.9 - Hypotension, unspecified Hematemesis Qualifiers: Nausea presence: with nausea Qualified Code(s): K92.0 - Hematemesis
[2021-03-09 15:13] LABS: Basophils # (auto) 0.02 K/uL (0-0.2); Basophils % (auto) 0.2 %; Eosinophils # (auto) 0.09 K/uL (0-0.5); Eosinophils % (auto) 1.1 %; Hematocrit (blood only) 35.4 % (42-52); Hemoglobin 11.3 g/dL (14.0-18.0); Immature Granulocytes # (auto) 0.02 K/uL (0.00-0.02); Immature Granulocytes % (auto) 0.2 %; Lymphocytes # (auto) 1.72 K/uL (1.2-3.4); Lymphocytes % (auto) 20.9 %; Mean Corpuscular Hgb Conc 31.9 g/dL (32-36); Mean Corpuscular Volume 103.5 fL (80-100); Mean Platelet Volume 9.6 fL (7.4-10.4); Monocytes % (auto) 20.7 %; Neutrophils # (auto) 4.68 K/uL (1.4-6.5); Neutrophils % (auto) 56.9 %; Platelet Count 390 K/uL (130-400); RDW Coefficient of Variation 13.7 % (11.5-14.5); RDW Standard Deviation 51.3 fL (36.4-46.3); Red Blood Count 3.42 M/uL (4.7-6.1); White Blood Count 8.23 K/uL (4.8-10.8)
[2021-03-09] MEDS ORDERED: SODIUM CHLORIDE 0.9% 1000ML 500 ML IV ONE (15:17)
[2021-03-09 15:23] LABS: INR 1.1 (0.9-1.1); Partial Thromboplastin Time 26.8 Seconds (21.0-31.0); Prothrombin Time 10.9 Seconds (9.0-12.0)
[2021-03-09 15:29] LABS: Alanine Aminotransferase 135 U/L (12-78); Albumin Level 2.8 gm/dl (3.4-5.0); Aspartate Aminotransferase 126 U/L (15-37); BUN Creatinine Ratio 24.7 (10-20); Blood Urea Nitrogen 31 mg/dl (7-18); Calcium 9.3 mg/dl (8.5-10.1); Carbon Dioxide 26 mmol/L (21-32); Chloride 108 mmol/L (98-107); Creatinine Clr Calc Pharmacy 47.9 ml/min; Est GFR (African American) 62.3 ml/min; Est GFR (Non-African American) 53.8 ml/min; Glucose 100 mg/dl (70-99); Lipase 173 U/L (73-393); Magnesium 2.5 mg/dl (1.8-2.4); Potassium 3.9 mmol/L (3.5-5.1); Sodium 142 mmol/L (136-145)
[2021-03-09 15:34] LABS: Albumin Globulin Ratio 0.8 (0.9-2); Alkaline Phosphatase 225 U/L (45-117); Bilirubin,Total 1.3 mg/dl (0.2-1); Globulin 3.3 gm/dl (2.5-4.0); Total Protein 6.1 gm/dl (6.4-8.2); Troponin I < 0.015 ng/ml (0-0.045)
[2021-03-09] MEDS ORDERED: KCENTRA (500unit vial) 2000 units IVP IV ONE (15:45)
--- NOTE | 2021-03-09 15:53 | XRay Report ---
XR chest 1V portable HISTORY: Weakness. COMPARISON: Chest 02/28/2021. FINDINGS: Left basilar linear densities consistent with subsegmental atelectasis. The right lung is c lear. The heart is normal in size. No pleural effusions. No pneumothorax. Cervical spinal fusion hard fong is noted IMPRESSION: No acute process. ACT 112: Negative or not required by law. Electronically signed by: Navneet Parra M.D. 03/09/2021 3:52 PM
--- NOTE | 2021-03-09 16:18 | Critical Care Consultation ---
Date of Consultation March 09, 2021 Assessment & Plan (1) Acute blood loss anemia: (2) Hematemesis: (3) Hypotension: (4) Paroxysmal atrial fibrillation: X-ray 03/09/2021 personally reviewed: Portable film, elevation of the left hemidiaphragm, right costophrenic and cardiophrenic angles are clean. Left cardiophrenic angle not clearly visualized -- Acute blood loss anaemia Likely secondary to upper GI bleed On apixaban at home, s/p Kcentra in the ED Type and screen Transfuse as needed to keep hemoglobin greater than 7 Monitor H&H GI already on board Plan for endoscopy tomorrow --Borderline hypotension Likely from bleeding Give IV fluids --History of A. fib Rate controlled Hold anticoagulation --Prophylaxis VTE: IPC GI: Protonix drip Lines: Peripheral Diet: N.p.o. Plan: Trend H&H. Transfuse to hemoglobin is less than 7 Close monitoring in the ICU Please note the above document was generated using voice recognition software. It may contain grammatical, syntax or spelling errors.Any formal questions or concerns about the content, text or information contained within the body of this dictation should be directly addressed to the provider for clarification. History of Present Illness History of Present Illness 80-year-old male past medical history of recently diagnosed A. fib on apixaban presented to the ED with complaints of dizziness and lightheadedness. He said he has been having in the ER patient blood pressure was in the nineties He did get Kcentra. He got IV fluid bolus. He was sent to the ICU for further monitor. At the time of examination patient lab was in the seventies. He was saturating 96% on room air. He denied any chest pain, no shortness of breath No dizziness since coming to the hospital. Denies any nausea or vomiting. Denies taking any pain medications recently. Denies any abdominal pain. Afebrile. Social history: Approximately 37-[id number]-piso smoking history quit long time ago. Does chew tobacco Allergies Allergy/AdvReac Type Severity Reaction Status Date / Time No Known Drug Allergies Allergy Unknown Verified 03/09/21 14:53 Home Medications Medication Instructions Recorded Confirmed Type cyclobenzaprine 10 mg tablet 10 mg PO TID PRN 02/28/21 03/09/21 History quinidine sulfate 200 mg tablet 200 mg PO DAILY PRN 02/28/21 03/09/21 History apixaban 5 mg tablet (Eliquis) 5 mg PO BID #60 tab 03/04/21 03/09/21 Rx lisinopril 10 mg tablet 10 mg PO DAILY #30 tab 03/04/21 03/09/21 Rx metoprolol succinate 25 mg 25 mg PO DAILY #30 tab 03/04/21 03/09/21 Rx tablet,extended release 24 hr Patient History Medical History Actinic keratosis Basal cell carcinoma of face Bladder cancer Bladder neoplasm BPH (benign prostatic hyperplasia) 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 Prostate nodule Skin cancer Varicose veins with inflammation Surgical History No pertinent past surgical history Family History Denies family history of Hearing loss No family history of adverse response to anesthesia No family history of bleeding disorder Heart disease Allergies Cancer Hypertension Stroke Asthma Social History Smoking Status: Never smoker Tobacco Type: Smokeless Tobacco (Dip or Chew) Second Hand Exposure: No; Hx Alcohol Use: Yes Alcohol type: beer Alcohol Intake Frequency Comment: 6 pack a week Hx Substance Use: No Preferred Language: Indonesian Communication Ability: Effective Car Hostler Required: No Beliefs That Will Affect Care: None marital status: / Current Living Situation: Alone current occupational status: retired Feels Safe at Home: Yes Assistive Devices: Glasses Review of Systems Review of Systems: All systems reviewed & are unremarkable except as noted in HPI & below Physical Exam Physical Exam: Constitutional: No acute distress HEENT: EOMI, PERRLA Respiratory system: Decreased air entry bilaterally, no wheeze, rhonchi, positive crackles bilateral lower lobes more on the left side CVS: S1-S2 positive, no murmurs or gallops Abdomen: Soft, nontender, nondistended, positive bowel sounds x4 Extremities: +2 pulses bilaterally radialis/ dorsalis pedis, no cyanosis, no edema Neuro: Awake alert oriented x3 Psych: Normal mood and affect G/U: No Wilson Results & Data Results & Data ([facility]) Vital Signs (Past 12 Hours) Vital Signs Temp Pulse Pulse Resp BP BP Pulse Ox 03/09/21 15:14 82 16 98/55 L 94 03/09/21 14:25 37.1 C 83 18 133/61 96 03/09/21 17:42 03/09/21 14:57 Coding Level of Care Code 83463 Inpt Consult Level 4 Diagnoses Acute blood loss anemia D62 Hematemesis K92.0 Nausea presence: with nausea Hypotension I95.9 Hypotension type: unspecified hypotension type Paroxysmal atrial fibrillation I48.0 (1) Hematemesis Nausea presence: with nausea Qualified Code(s): K92.0 - Hematemesis (2) Hypotension Hypotension type: unspecified hypotension type Qualified Code(s): I95.9 - Hypotension, unspecified
--- NOTE | 2021-03-09 16:26 | History & Physical Report ---
Date of Service March 09, 2021 Assessment & Plan (1) Acute blood loss anemia: (2) Hematemesis: (3) Hypotension: (4) Paroxysmal atrial fibrillation: Plan: -- Acute blood loss anaemia Likely secondary to upper GI bleed On apixaban at home, s/p Kcentra in the ED Type and screen Transfuse as needed to keep hemoglobin greater than 7 Monitor H&H GI already on board Plan for endoscopy tomorrow --Borderline hypotension Likely from bleeding Give IV fluids --History of A. fib Rate controlled Hold anticoagulation --Prophylaxis VTE: IPC GI: Protonix drip Lines: Peripheral Diet: Clears for now n.p.o. after midnight. Plan: Monitor H&H Close monitoring in the ICU History of Present Illness Chief Complaint: Black tarry stools Primary Care Provider: Scout Tomlin MD Patient is a 80-year-old male who presented approximately last week with acute cholecystitis. He was also found to have atrial fibrillation. His postoperative course has been largely uneventful he was started on apixaban. Since then he has had 2 to 3 days of black stools and worsening generalized fatigue that prompted him to seek medical treatment today in the emergency department. During his emergency department stay he had a large black tarry stool. He was given Kcentra in the emergency department and he has been typed and screened. He is agreeable to receive blood transfusion should he need it. He denies chest pain or shortness of breath just generalized fatigue, no diarrhea, stools as previously reported. Allergies Allergy/AdvReac Type Severity Reaction Status Date / Time No Known Drug Allergies Allergy Unknown Verified 03/09/21 14:53 Home Medications Medication Instructions Recorded Confirmed Type cyclobenzaprine 10 mg tablet 10 mg PO TID PRN 02/28/21 03/09/21 History quinidine sulfate 200 mg tablet 200 mg PO DAILY PRN 02/28/21 03/09/21 History apixaban 5 mg tablet (Eliquis) 5 mg PO BID #60 tab 03/04/21 03/09/21 Rx lisinopril 10 mg tablet 10 mg PO DAILY #30 tab 03/04/21 03/09/21 Rx metoprolol succinate 25 mg 25 mg PO DAILY #30 tab 03/04/21 03/09/21 Rx tablet,extended release 24 hr 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 Prostate nodule Skin cancer Varicose veins with inflammation Surgical History No pertinent past surgical history Family History Denies family history of Hearing loss No family history of adverse response to anesthesia No family history of bleeding disorder Heart disease Allergies Cancer Hypertension Stroke Asthma Social History Smoking Status: Light tobacco smoker Tobacco Type: Smokeless Tobacco (Dip or Chew) Second Hand Exposure: No; Hx Alcohol Use: No Hx Substance Use: No Preferred Language: Greenlandic Communication Ability: Effective Mri Ct Tech Required: No Beliefs That Will Affect Care: None marital status: / Current Living Situation: Alone current occupational status: retired Feels Safe at Home: Yes Assistive Devices: None Review of Systems Review of Systems: As per the HPI otherwise a 10 point review of systems been reviewed and is otherwise negative. Physical Exam Physical Exam: General: Alert. nontoxic. Skin: Warm, dry, Head: Atraumatic Ears, nose, mouth and throat: airway patent Cardiovascular: Normal peripheral perfusion Respiratory: no respiratory distress Gastrointestinal: Non distended, mild tenderness to palpation no guarding no rebound incisions are clean dry and intact very minimal old shadowing on Steri- Strips. Musculoskeletal: No deformity Results & Data Results & Data ([facility]) Vital Signs (Past 12 Hours) Vital Signs Temp Pulse Pulse Resp BP BP Pulse Ox 03/09/21 15:14 82 16 98/55 L 94 03/09/21 14:25 37.1 C 83 18 133/61 96 Laboratory Results 03/09/21 03/09/21 03/09/21 Range/Units Unknown 14:59 14:59 WBC (4.8-10.8) K/uL RBC (4.7-6.1) M/uL Hgb (14.0-18.0) g/dL Hct (42-52) % MCV (80-100) fL MCH (25-34) pg MCHC (32-36) g/dL RDW Std Deviation (36.4-46.3) fL RDW Coeff of Francine (11.5-14.5) % Plt Count (130-400) K/uL MPV (7.4-10.4) fL Immature Gran % (Auto) % Neut % (Auto) % Lymph % (Auto) % Union % (Auto) % Eos % (Auto) % Baso % (Auto) % Neut # (Auto) (1.4-6.5) K/uL Lymph # (Auto) (1.2-3.4) K/uL Union # (Auto) (0.11-0.59) K/uL Eos # (Auto) (0-0.5) K/uL Baso # (Auto) (0-0.2) K/uL Immature Gran # (Auto) (0.00-0.02) K/uL PT (9.0-12.0) Seconds INR (0.9-1.1) APTT (21.0-31.0) Seconds PTT Ratio Sodium (136-145) mmol/L Potassium (3.5-5.1) mmol/L Chloride (98-107) mmol/L Carbon Dioxide (21-32) mmol/L Anion Gap (3-11) BUN (7-18) mg/dl Creatinine (0.6-1.4) mg/dl Est Cr Clr Drug Dosing ml/min Est GFR ( Amer) ml/min Est GFR (Non-Af Amer) ml/min BUN/Creatinine Ratio (10-20) Glucose (70-99) mg/dl Calcium (8.5-10.1) mg/dl Magnesium (1.8-2.4) mg/dl Total Bilirubin (0.2-1) mg/dl AST (15-37) U/L ALT (12-78) U/L Alkaline Phosphatase (45-117) U/L Troponin I (0-0.045) ng/ml Total Protein (6.4-8.2) gm/dl Albumin (3.4-5.0) gm/dl Globulin (2.5-4.0) gm/dl Albumin/Globulin Ratio (0.9-2) Lipase (73-393) U/L POC Stool Occult Blood Positive A (Negative) Stl C. diff Tox B Gene Negative Cdiff Gene (Neg) COVID-19 Eval Order SARS-CoV-2 (PCR) NEGATIVE (Negative) Blood Type Antibody Screen 03/09/21 03/09/21 03/09/21 Range/Units 14:59 14:57 14:57 WBC 8.23 (4.8-10.8) K/uL RBC 3.42 L (4.7-6.1) M/uL Hgb 11.3 L (14.0-18.0) g/dL Hct 35.4 L (42-52) % MCV 103.5 H (80-100) fL MCH 33.0 (25-34) pg MCHC 31.9 L (32-36) g/dL RDW Std Deviation 51.3 H (36.4-46.3) fL RDW Coeff of Francine 13.7 (11.5-14.5) % Plt Count 390 (130-400) K/uL MPV 9.6 (7.4-10.4) fL Immature Gran % (Auto) 0.2 % Neut % (Auto) 56.9 % Lymph % (Auto) 20.9 % Union % (Auto) 20.7 % Eos % (Auto) 1.1 % Baso % (Auto) 0.2 % Neut # (Auto) 4.68 (1.4-6.5) K/uL Lymph # (Auto) 1.72 (1.2-3.4) K/uL Union # (Auto) 1.70 H (0.11-0.59) K/uL Eos # (Auto) 0.09 (0-0.5) K/uL Baso # (Auto) 0.02 (0-0.2) K/uL Immature Gran # (Auto) 0.02 (0.00-0.02) K/uL PT 10.9 (9.0-12.0) Seconds INR 1.1 (0.9-1.1) APTT 26.8 (21.0-31.0) Seconds PTT Ratio 1.0 Sodium (136-145) mmol/L Potassium (3.5-5.1) mmol/L Chloride (98-107) mmol/L Carbon Dioxide (21-32) mmol/L Anion Gap (3-11) BUN (7-18) mg/dl Creatinine (0.6-1.4) mg/dl Est Cr Clr Drug Dosing ml/min Est GFR ( Amer) ml/min Est GFR (Non-Af Amer) ml/min BUN/Creatinine Ratio (10-20) Glucose (70-99) mg/dl Calcium (8.5-10.1) mg/dl Magnesium (1.8-2.4) mg/dl Total Bilirubin (0.2-1) mg/dl AST (15-37) U/L ALT (12-78) U/L Alkaline Phosphatase (45-117) U/L Troponin I (0-0.045) ng/ml Total Protein (6.4-8.2) gm/dl Albumin (3.4-5.0) gm/dl Globulin (2.5-4.0) gm/dl Albumin/Globulin Ratio (0.9-2) Lipase (73-393) U/L POC Stool Occult Blood (Negative) Stl C. diff Tox B Gene (Neg) COVID-19 Eval Order Covid19 at [facility] SARS-CoV-2 (PCR) (Negative) Blood Type Antibody Screen 03/09/21 03/09/21 Range/Units 14:57 14:57 WBC (4.8-10.8) K/uL RBC (4.7-6.1) M/uL Hgb (14.0-18.0) g/dL Hct (42-52) % MCV (80-100) fL MCH (25-34) pg MCHC (32-36) g/dL RDW Std Deviation (36.4-46.3) fL RDW Coeff of Francine (11.5-14.5) % Plt Count (130-400) K/uL MPV (7.4-10.4) fL Immature Gran % (Auto) % Neut % (Auto) % Lymph % (Auto) % Union % (Auto) % Eos % (Auto) % Baso % (Auto) % Neut # (Auto) (1.4-6.5) K/uL Lymph # (Auto) (1.2-3.4) K/uL Union # (Auto) (0.11-0.59) K/uL Eos # (Auto) (0-0.5) K/uL Baso # (Auto) (0-0.2) K/uL Immature Gran # (Auto) (0.00-0.02) K/uL PT (9.0-12.0) Seconds INR (0.9-1.1) APTT (21.0-31.0) Seconds PTT Ratio Sodium 142 (136-145) mmol/L Potassium 3.9 (3.5-5.1) mmol/L Chloride 108 H (98-107) mmol/L Carbon Dioxide 26 (21-32) mmol/L Anion Gap 8.0 (3-11) BUN 31 H (7-18) mg/dl Creatinine 1.27 (0.6-1.4) mg/dl Est Cr Clr Drug Dosing 47.9 ml/min Est GFR ( Amer) 62.3 ml/min Est GFR (Non-Af Amer) 53.8 ml/min BUN/Creatinine Ratio 24.7 H (10-20) Glucose 100 H (70-99) mg/dl Calcium 9.3 (8.5-10.1) mg/dl Magnesium 2.5 H (1.8-2.4) mg/dl Total Bilirubin 1.3 H (0.2-1) mg/dl AST 126 H (15-37) U/L ALT 135 H (12-78) U/L Alkaline Phosphatase 225 H (45-117) U/L Troponin I < 0.015 (0-0.045) ng/ml Total Protein 6.1 L (6.4-8.2) gm/dl Albumin 2.8 L (3.4-5.0) gm/dl Globulin 3.3 (2.5-4.0) gm/dl Albumin/Globulin Ratio 0.8 L (0.9-2) Lipase 173 (73-393) U/L POC Stool Occult Blood (Negative) Stl C. diff Tox B Gene (Neg) COVID-19 Eval Order SARS-CoV-2 (PCR) (Negative) Blood Type Pending Antibody Screen Pending Code Status & VTE Plan VTE Prophylaxis Plan VTE Prophylaxis will be ordered: Yes PG Care Time/CCT Total # of Minutes Spent Total Time Spent with Patient: Total time spent is greater than 50% in coordination of care (as documented) at patient's floor/unit and/or counseling patient: Coding Level of Care Code 41681 Initial Inpt Care Lvl 3 Diagnoses Acute blood loss anemia D62 Hematemesis K92.0 Nausea presence: with nausea Hypotension I95.9 Hypotension type: unspecified hypotension type Paroxysmal atrial fibrillation I48.0 (1) Hematemesis Nausea presence: with nausea Qualified Code(s): K92.0 - Hematemesis (2) Hypotension Hypotension type: unspecified hypotension type Qualified Code(s): I95.9 - Hypotension, unspecified
[2021-03-09] MEDS ORDERED: quiNIDine sulfate 200 MG TAB PO PRN (17:08)
[2021-03-09] MEDS ORDERED: ICU PROTOCOL FOR HYPERGLYCEMIA PRN (17:08)
[2021-03-09] MEDS ORDERED: CYCLOBENZAPRINE HCL 10 MG TAB PO PRN (17:20)
[2021-03-09 17:53] LABS: Hematocrit (blood only) 31.3 % (42-52)
[2021-03-09] MEDS: NORMOSOL-R 1,000 ML IV SCH (17:56)
[2021-03-09] MEDS: PANTOprazole 40 MG in DEXTROSE 5% 100 ML IV SCH (20:32)
[2021-03-09 23:29] LABS: Hematocrit (blood only) 26.8 % (42-52); Hemoglobin 8.6 g/dL (14.0-18.0)
[2021-03-10] MEDS: PANTOprazole 40 MG in DEXTROSE 5% 100 ML IV SCH ×3 (01:44→16:17)
[2021-03-10 04:22] LABS: Basophils # (auto) 0.03 K/uL (0-0.2); Basophils % (auto) 0.6 %; Eosinophils # (auto) 0.17 K/uL (0-0.5); Eosinophils % (auto) 3.4 %; Hematocrit (blood only) 28.4 % (42-52); Hemoglobin 8.9 g/dL (14.0-18.0); Immature Granulocytes # (auto) 0.02 K/uL (0.00-0.02); Immature Granulocytes % (auto) 0.4 %; Lymphocytes # (auto) 1.71 K/uL (1.2-3.4); Lymphocytes % (auto) 34.3 %; Mean Corpuscular Hemoglobin 32.5 pg (25-34); Mean Corpuscular Volume 103.6 fL (80-100); Mean Platelet Volume 9.3 fL (7.4-10.4); Monocytes # (auto) 0.68 K/uL (0.11-0.59); Monocytes % (auto) 13.6 %; Neutrophils # (auto) 2.38 K/uL (1.4-6.5); Neutrophils % (auto) 47.7 %; Platelet Count 281 K/uL (130-400); RDW Coefficient of Variation 13.7 % (11.5-14.5); RDW Standard Deviation 51.7 fL (36.4-46.3); Red Blood Count 2.74 M/uL (4.7-6.1); White Blood Count 4.99 K/uL (4.8-10.8)
[2021-03-10 04:24] LABS: Mean Corpuscular Hgb Conc 31.3 g/dL (32-36)
[2021-03-10 04:31] LABS: Partial Thromboplastin Time 25.2 Seconds (21.0-31.0); Prothrombin Time 10.5 Seconds (9.0-12.0)
[2021-03-10 04:40] LABS: Albumin Level 2.3 gm/dl (3.4-5.0); BUN Creatinine Ratio 19.7 (10-20); Bilirubin Direct 0.7 mg/dl (0-0.2); Calcium 7.9 mg/dl (8.5-10.1); Creatinine Clr Calc Pharmacy 51.6 ml/min; Est GFR (African American) 68.1 ml/min; Est GFR (Non-African American) 58.8 ml/min; Magnesium 2.2 mg/dl (1.8-2.4); Potassium 4.1 mmol/L (3.5-5.1)
[2021-03-10 04:42] LABS: Bilirubin,Total 1.1 mg/dl (0.2-1); Phosphorus 3.1 mg/dl (2.5-4.9); Total Protein 5.2 gm/dl (6.4-8.2)
--- NOTE | 2021-03-10 06:21 | Electrocardiogram Report ---
Test Reason : Blood Pressure : / mmHG Vent. Rate : 079 BPM Atrial Rate : 079 BPM P-R Int : 174 ms QRS Dur : 076 ms QT Int : 362 ms P-R-T Axes : 061 -14 048 degrees QTc Int : 415 ms Sinus rhythm with occasional Premature ventricular complexes Cannot rule out Anterior infarct (cited on or before 02-MAR-2021) Abnormal ECG When compared with ECG of 02-MAR-2021 10:05, Premature supraventricular complexes are no longer Present Confirmed by Ramiro Sethi ([id number]) on 03/10/2021 6:20:59 AM Referred By: REFERRED SELF Confirmed By:Ramiro Sethi
[2021-03-10] MEDS: NORMOSOL-R 1,000 ML IV SCH (07:10)
--- NOTE | 2021-03-10 07:35 | Critical Care Progress Note ---
Date of Service March 10, 2021 Assessment & Plan (1) Acute blood loss anemia: (2) Hematemesis: (3) Hypotension: (4) Paroxysmal atrial fibrillation: Plan: X-ray 03/09/2021 personally reviewed: Portable film, elevation of the left hemidiaphragm, right costophrenic and cardiophrenic angles are clean. Left cardiophrenic angle not clearly visualized -- Acute blood loss anaemia Likely secondary to upper GI bleed 11.3 --> 8.9 On apixaban at home, s/p Kcentra in the ED Type and screen Transfuse as needed to keep hemoglobin greater than 7 Monitor H&H GI already on board Plan for endoscopy today --Transaminitis Likely from hypotension coming to the hospital Trending down Continue to monitor --Borderline hypotension Likely from bleeding Give IV fluids --History of A. fib Rate controlled Hold anticoagulation --Prophylaxis VTE: IPC GI: Protonix drip Lines: Peripheral Diet: N.p.o. Plan: Give 500 mL of bolus as the blood pressure was on the softer side. At the time of examination blood pressure was 97/53. For endoscopy today. Please note the above document was generated using voice recognition software. It may contain grammatical, syntax or spelling errors.Any formal questions or concerns about the content, text or information contained within the body of this dictation should be directly addressed to the provider for clarification. Admission and Anticipated Discharge Date Admission Date: March 09, 2021 Subjective Patient seen and examined at bedside. No acute distress, noted when she was overnight. Patient's H&H is stable. Patient denies any chest pain, no headache, no nausea, no vomiting. His blood pressure was soft but he is denying any dizziness. No nausea or vomiting. No bowel movement since coming to the hospital. Review of Systems Review of Systems: All systems reviewed & are unremarkable except as noted in Subjective Physical Exam Physical Exam: Constitutional: No acute distress HEENT: EOMI, PERRLA Respiratory system: Decreased air entry bilaterally, no wheeze, rhonchi, positive crackles bilateral lower lobes more on the left side CVS: S1-S2 positive, no murmurs or gallops Abdomen: Soft, nontender, nondistended, positive bowel sounds x4 Extremities: +2 pulses bilaterally radialis/ dorsalis pedis, no cyanosis, no edema Neuro: Awake alert oriented x3 Psych: Normal mood and affect G/U: No Wilson Results & Data Results & Data ([facility]) Vital Signs (Past 12 Hours) Vital Signs Temp Pulse Resp BP Pulse Ox 03/10/21 05:56 56 L 17 77/38 L 96 03/10/21 04:36 36.5 C 59 L 16 77/43 L 98 03/10/21 03:55 53 L 18 76/36 L 97 03/10/21 02:55 58 L 5 L 91/58 L 93 03/10/21 01:55 60 19 96/56 L 96 03/10/21 00:55 61 0 L 88/41 L 96 03/10/21 00:00 55 L 03/09/21 23:55 36.8 C 62 0 L 88/46 L 97 03/09/21 22:31 60 24 100/50 L 96 03/09/21 21:55 60 14 85/41 L 93 03/09/21 20:55 36.8 C 60 19 102/48 L 92 03/09/21 19:55 73 37 H 102/58 L 95 03/10/21 04:03 03/10/21 04:03 Coding Level of Care Code 33291 Subseq Hosp Care Lvl 3 Diagnoses Acute blood loss anemia D62 Hematemesis K92.0 Nausea presence: with nausea Hypotension I95.9 Hypotension type: unspecified hypotension type Paroxysmal atrial fibrillation I48.0 (1) Hematemesis Nausea presence: with nausea Qualified Code(s): K92.0 - Hematemesis (2) Hypotension Hypotension type: unspecified hypotension type Qualified Code(s): I95.9 - Hypotension, unspecified
[2021-03-10] MEDS ORDERED: SODIUM CHLORIDE 0.9% 1000ML 500 ML IV ONE (07:41)
[2021-03-10] MEDS: lisinopril 10 MG TAB PO SCH (07:59)
[2021-03-10] MEDS: METOPROLOL SUCC 25MG EXT REL TAB PO SCH (07:59)
--- NOTE | 2021-03-10 08:47 | Gastrointestinal Consultation ---
Date of Consultation March 10, 2021 Assessment & Plan (1) Acute blood loss anemia: (2) Gastrointestinal hemorrhage with melena: Pt is a 80 y/o male w hx of ERCP w sphincterectomy followed by lap cholecystectomy last week, started on Apixaban for new Afib; presented with melena, coffee ground emesis found be anemic, with + FOBT. - Monitor blood ct and transfuse prn - PPI gtt - Keep NPO - Hold Apixaban - Will discuss with Dr. Bennett for possible EGD evaluation today Supervising Physician Co-Signing Physician Notes I have seen and examined the patient and discussed the management with BEST Owens. Consult for ? GI bleed. History of recent lap cholecystectomy and complicated ercp with papillar noted in the diverticulum s/p sphincterotomy. He was noted to have post operative afib started on apixaban - off since yesterday afternoon. He is alert and oriented without evidence of gross gi bleeding slight abd tenderness on exam given recent surgery. Hgb zaheer 5 gram drop since discharge with mild bun rise. EGD later today for evaluation of ? gi bleed and anemia. Continue Protonix. History of Present Illness Reason for Consultation: GI bleed Requesting Physician: Dr. Haseeb Dawson Attending Physician: Dr. Tara Bennett History of Present Illness Pt is a 80 y/o male who presented yesterday w fatigue and black tarry stools x 2 days. He was admitted last week for cholecystitis s/p ERCP w sphincterectomy and cholecystectomy. He was found to have Afib post op and placed on Apixaban. Was doing well on discharged. Then he noticed getting more fatigued and having black tarry stools. ED staff reported coffee ground emesis. Labs on admission showed anemia w Hgb 10 ->8. BUN 31. BP low overnight 70s/30s improved to 98s/50s after 1/2L NS bolus. His last BM was yesterday which was still black and tarry. He denies CP, SOB, abd pain except at surgical site, n/v. He denies hx of ASA or NSAIDs uses. + chews tobacco. No hx of gastric ulcer. No family hx of colorectal ca or IBD Allergies Allergy/AdvReac Type Severity Reaction Status Date / Time No Known Drug Allergies Allergy Unknown Verified 03/09/21 14:53 Home Medications Medication Instructions Recorded Confirmed Type cyclobenzaprine 10 mg tablet 10 mg PO TID PRN 02/28/21 03/09/21 History quinidine sulfate 200 mg tablet 200 mg PO DAILY PRN 02/28/21 03/09/21 History apixaban 5 mg tablet (Eliquis) 5 mg PO BID #60 tab 03/04/21 03/09/21 Rx lisinopril 10 mg tablet 10 mg PO DAILY #30 tab 03/04/21 03/09/21 Rx metoprolol succinate 25 mg 25 mg PO DAILY #30 tab 03/04/21 03/09/21 Rx tablet,extended release 24 hr Patient History Medical History Actinic keratosis Acute cholecystitis Acute gallstone pancreatitis Atrial fibrillation with rapid ventricular response Basal cell carcinoma of face Bladder cancer Bladder neoplasm BPH (benign prostatic hyperplasia) 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 Prostate nodule Skin cancer Varicose veins with inflammation Surgical History No pertinent past surgical history Family History Denies family history of Hearing loss No family history of adverse response to anesthesia No family history of bleeding disorder Heart disease Allergies Cancer Hypertension Stroke Asthma Social History Smoking Status: Never smoker Tobacco Type: Smokeless Tobacco (Dip or Chew) Second Hand Exposure: No; Hx Alcohol Use: Yes Alcohol type: beer Alcohol Intake Frequency Comment: 6 pack a week Hx Substance Use: No Preferred Language: Swazi Communication Ability: Effective 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 Beliefs That Will Affect Care: None marital status: / Current Living Situation: Alone current occupational status: retired Feels Safe at Home: Yes Assistive Devices: None Review of Systems Review of Systems: All systems reviewed & are unremarkable except as noted in HPI & below Physical Exam Constitutional: WD/WN, vitals as above well groomed, cooperative and comfortable Eyes: PERRL, conjunctivae normal, anicteric sclerae ENMT: external ear and nose normal, oropharynx normal Respiratory: normal respiratory effort, lungs clear to auscultation Cardiovascular: RRR, no murmur, no edema Gastrointestinal (Abdomen): hypoactive BS, TTP on surgical sites Skin: no rashes, warm and dry no jaundice Psychiatric: A+Ox3, euthymic affect Lymphatic: no lymphedema Results & Data ([facility]) Vital Signs (Past 12 Hours) Vital Signs Temp Pulse Resp BP Pulse Ox 03/10/21 08:00 57 L 03/10/21 05:56 56 L 17 77/38 L 96 03/10/21 04:36 36.5 C 59 L 16 77/43 L 98 03/10/21 03:55 53 L 18 76/36 L 97 03/10/21 02:55 58 L 5 L 91/58 L 93 03/10/21 01:55 60 19 96/56 L 96 03/10/21 00:55 61 0 L 88/41 L 96 03/10/21 00:00 55 L 03/09/21 23:55 36.8 C 62 0 L 88/46 L 97 03/09/21 22:31 60 24 100/50 L 96 03/09/21 21:55 60 14 85/41 L 93 03/09/21 20:55 36.8 C 60 19 102/48 L 92
--- NOTE | 2021-03-10 10:19 | Anesthesiology Consultation ---
Date of Service March 10, 2021 Assessment & Plan Chart Review Chart Review: Acceptable Risk for Surgery and Patient NOT seen in Pre Admission Testing Consults Requested none ASA ASA4 Proposed Anesthesia Anesthesia Type: MAC Risk / Benefits Reviewed With: PT / POA / Parent / Guardian, Accepts Plan and Informed Consent Obtained Additional Comments: covid test negative History Surgery Operation Date: 03/10/21 16:30 Proposed Procedures p Esophagogastroduodenoscopy Dr. Sabrina Bennett MD Height/Weight Height: 5 ft 9 in Weight: 78.7 kg Allergies Allergy/AdvReac Type Severity Reaction Status Date / Time No Known Drug Allergies Allergy Unknown Verified 03/10/21 10:09 Medications Home Medications Medication Instructions Recorded Confirmed Last Taken cyclobenzaprine 10 mg tablet 10 mg PO TID PRN 02/28/21 03/09/21 Unknown quinidine sulfate 200 mg tablet 200 mg PO DAILY PRN 02/28/21 03/09/21 Unknown apixaban 5 mg tablet (Eliquis) 5 mg PO BID #60 tab 03/04/21 03/09/21 03/09/21 lisinopril 10 mg tablet 10 mg PO DAILY #30 tab 03/04/21 03/09/21 03/09/21 metoprolol succinate 25 mg 25 mg PO DAILY #30 tab 03/04/21 03/09/21 03/09/21 tablet,extended release 24 hr Active Medications Generic Name Dose Route Start Last Admin Trade Name Freq PRN Reason Stop Dose Admin Parenteral Electrolytes 1,000 mls @ 80 mls/hr 03/09/21 17:08 03/10/21 07:10 Normosol-R IV 04/08/21 17:07 80 mls/hr .[id number] NIGEL Administration Pantoprazole Sodium 40 mg/ 100 mls @ 20 mls/hr 03/09/21 19:45 03/10/21 06:39 Dextrose IV 04/08/21 19:44 8 mg/hr Q5H NIGEL 20 mls/hr Administration 8 MG/HR Lisinopril 10 mg 03/10/21 09:00 03/10/21 07:59 Lisinopril 10 Mg Tab PO 04/09/21 08:59 Not Given DAILY NIGEL Metoprolol Succinate 25 mg 03/10/21 09:00 03/10/21 07:59 Metoprolol Succ 25mg Ext Rel Tab PO 04/09/21 08:59 Not Given DAILY NIGEL NPO Date Last Intake of Fluids: 03/09/21 Time Last Intake of Fluids: 21:00 Date Last Intake of Solids: 03/09/21 Time Last Intake of Solids: 18:00 Past Medical History Medical History Actinic keratosis Acute cholecystitis Acute gallstone pancreatitis Atrial fibrillation with rapid ventricular response Basal cell carcinoma of face Bladder cancer Bladder neoplasm BPH (benign prostatic hyperplasia) 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 Prostate nodule Skin cancer Varicose veins with inflammation Exercise / Class Metabolic Activity III < 4 Walking/Shop/Light housework Past Family History Family History Denies family history of Hearing loss No family history of adverse response to anesthesia No family history of bleeding disorder Heart disease Allergies Cancer Hypertension Stroke Asthma Past Surgical History Surgical History No pertinent past surgical history Past Anesthesia History No Hx of Anesthesia Complications and No Family Hx of Anesthesia Complications History of PONV No Hx of PONV and No Hx of Motion Sickness Social History Smoking Status: Never smoker tobacco type: smokeless tobacco Do You Dip or Chew Tobacco: Yes Hx Alcohol Use: Yes Alcohol type: beer alcohol intake frequency: 0-2 drinks per day Hx Substance Use: No substance use type: does not use Physical Exam Vital Signs Last Vital Signs Temp 36.5 C 03/10/21 04:36 Pulse 57 L 03/10/21 08:00 Resp 17 03/10/21 05:56 BP 77/38 L 03/10/21 05:56 Pulse Ox 96 03/10/21 05:56 Constitutional not obese ENMT Mouth: + poor dentition; no dentition abnormality Thyromental Distance: > or= 3.5 Finger Breadths Mallampati Class: II Neck normal visual inspection and trachea midline; neck extension not limited Respiratory normal respiratory effort Auscultation: lungs clear to auscultation bilaterally Cardiovascular Rate/Rhythm: regular rate and regular rhythm Heart Sounds: no murmur Vessels: no carotid bruit Musculoskeletal Spine: normal cervical ROM Extremities: extremities normal to inspection Neurologic moves all extremities Motor/Sensory: no sensory deficit Psychiatric Orientation: alert and oriented x 3 Testing Laboratory Results 03/10/21 04:03 03/10/21 04:03 PT 10.5 Seconds (9.0-12.0) 03/10/21 04:03 INR 1.0 (0.9-1.1) 03/10/21 04:03 APTT 25.2 Seconds (21.0-31.0) 03/10/21 04:03 Blood Type A Positive 03/09/21 14:57 Antibody Screen NEGATIVE 03/09/21 14:57 Electrocardiogram Date: 03/09/21 Findings: + NSR @ (at 81 w/occas. pvc's) Chest X-Ray Date: 03/09/21 Findings: + NAD Echocardiogram Date: 03/01/21 EF: 55% LV Function: normal RWMA: + none Other Findings: + LVH (mild) Valvular Disease: + MR (mild)
[2021-03-10] MEDS ORDERED: ATROPINE SULFATE 0.1 MG/ML 10ML SYR IV PRN (10:20)
[2021-03-10] MEDS ORDERED: ePHEDrine sulfate 50 MG/ML AMP IV PRN (10:20)
[2021-03-10] MEDS ORDERED: LIDOCAINE 2% 2 ML VIAL/AMP(20MG/ML) INFIL ONE (10:27)
[2021-03-10] MEDS ORDERED: PROPOFOL IV EMULSION 10 MG/ML 20 ML VIAL IV ONE (10:27)
[2021-03-10] MEDS ORDERED: SODIUM CHLORIDE 0.9% 1000ML 250 ML IV ONE (10:50)
[2021-03-10] MEDS ORDERED: PHENYLEPHRINE 100MCG/ML 5ML SYR ONE (11:05)
--- NOTE | 2021-03-10 11:09 | GI REPORT ---
Patient Name: Bella Tobias Procedure Date: 03/10/2021 10:23 AM Date of : 1940 Admit Type: Inpatient Age: 80 Gender: Male Attending MD: Tara Bennett M.d. Procedure: Upper GI endoscopy Providers: Tara Bennett M.d. Referring MD: Haseeb Dawson Indications: Anemia Medicines: Propofol per Anesthesia, See anesthesia record Complications: No immediate complications. Estimated Blood Loss: Estimated blood loss: none. Procedure: Pre-Anesthesia Assessment: - Patient identification and proposed procedure were verified prior to the procedure by the physician, the nurse and the anesthesiologist. The procedure was verified in the pre-procedure area. - Prior to the procedure, a History and Physical was performed, and patient medications, allergies and sensitivities were reviewed. The patient's tolerance of previous anesthesia was reviewed. - The risks and benefits of the procedure and the sedation options and risks were discussed with the patient. All questions were answered and informed consent was obtained. - ASA Grade Assessment: IV - A patient with severe systemic disease that is a constant threat to life. After obtaining informed consent, the endoscope was passed under direct vision. Throughout the procedure, the patient's blood pressure, pulse, and oxygen saturations were monitored continuously. The Endoscope was introduced through the mouth and advanced to the third part of duodenum. The upper GI endoscopy was accomplished without difficulty. The patient tolerated the procedure well. Findings: The examined esophagus appeared normal. The Z-line was regular and was found 35 cm from the incisors. A medium-sized hiatal hernia was present between 35 and 40 cm from the incisors. A single 4 mm sessile polyp with no bleeding and no stigmata of recent bleeding was found in the stomach. The duodenal bulb, second portion and and third portion of the duodenum appeared normal - bile was present. Impression: - Normal esophagus. - Z-line regular, 35 cm from the incisors. - Medium-sized hiatal hernia. - A single gastric polyp. - Normal duodenal bulb, second portion and third portion of the duodenum. Recommendation: - No evidence of ugi bleeding noted on today's examination Kwasi Johnson M.d. 03/10/2021 11:09:08 AM This report has been signed electronically. Note Initiated On: 03/10/2021 10:23 AM Number of Addenda: 0 I attest to the content of the Intraoperative Record and orders documented therein, exceptions below {[id number]}
--- NOTE | 2021-03-10 11:26 | Anesthesiology Progress Note ---
Date of Service March 10, 2021 Anesthesia Post Procedure Vital Signs Vital Signs: Temp Pulse Pulse Pulse Resp BP BP 03/10/21 11:22 62 18 99/44 L 03/10/21 11:18 65 18 99/44 L 03/10/21 11:12 68 18 74/35 L 03/10/21 11:07 68 18 61/35 L 03/10/21 10:16 36.2 C L 64 18 117/55 L 03/10/21 08:00 57 L 03/10/21 05:56 56 L 17 77/38 L 03/10/21 04:36 36.5 C 59 L 16 77/43 L 03/10/21 03:55 53 L 18 76/36 L 03/10/21 02:55 58 L 5 L 91/58 L 03/10/21 01:55 60 19 96/56 L 03/10/21 00:55 61 0 L 88/41 L 03/10/21 00:00 55 L 03/09/21 23:55 36.8 C 62 0 L 88/46 L 03/09/21 22:31 60 24 100/50 L 03/09/21 21:55 60 14 85/41 L 03/09/21 20:55 36.8 C 60 19 102/48 L 03/09/21 19:55 73 37 H 102/58 L 03/09/21 17:55 79 16 101/51 L 03/09/21 17:12 36.9 C 73 20 124/64 03/09/21 17:08 68 03/09/21 16:30 73 18 107/60 03/09/21 16:00 75 16 106/67 03/09/21 15:30 73 16 96/55 L 03/09/21 15:14 82 16 98/55 L 03/09/21 14:25 37.1 C 83 18 133/61 Pulse Ox 03/10/21 11:22 95 03/10/21 11:18 95 03/10/21 11:12 94 03/10/21 11:07 97 03/10/21 10:16 98 03/10/21 08:00 03/10/21 05:56 96 03/10/21 04:36 98 03/10/21 03:55 97 03/10/21 02:55 93 03/10/21 01:55 96 03/10/21 00:55 96 03/10/21 00:00 03/09/21 23:55 97 03/09/21 22:31 96 03/09/21 21:55 93 03/09/21 20:55 92 03/09/21 19:55 95 03/09/21 17:55 91 03/09/21 17:12 92 03/09/21 17:08 03/09/21 16:30 96 03/09/21 16:00 100 03/09/21 15:30 96 03/09/21 15:14 94 03/09/21 14:25 96 Transfer of Care Handoff Completed per policy Notes Mental Status: alert / awake / arousable Patient Amnestic to Procedure: Yes Nausea / Vomiting: adequately controlled Pain: adequately controlled Airway Patency, RR, SpO2: stable & adequate BP & HR: stable & adequate Hydration State: stable & adequate Anesthetic Complications: no major complications apparent
[2021-03-10] MEDS ORDERED: STAT IV Infusion **Titration per Protocol STA (11:52)
[2021-03-10] MEDS ORDERED: NOREPINEPHRINE/D5W 8 MG/508 ML BAG IV SCH (12:00)
[2021-03-10 13:03] LABS: Hematocrit (blood only) 30.7 % (42-52); Hemoglobin 9.6 g/dL (14.0-18.0)
--- NOTE | 2021-03-10 15:07 | Hospitalist Progress Note ---
Date of Service March 10, 2021 Assessment & Plan (1) Acute GI bleeding: Plan: no further evidence of bleeding, presented with 2 days of melena, no history of such he denies hematemesis EGD 03/10 with hiatal hernia, gastric polyp, no gastritis, no ulcers, no GAVE, no signs of blodd stop protonix gtt, change to IV BID downgrade to [facility] full liquid diet, advance as tolerated H/H in AM (2) Hypotension: Plan: never required Levophed, resolved with IV fluids and transfusion Hb is 9.6 MAP has been > 70 while in ICU move to [facility] (3) Acute blood loss anemia: Plan: Hb dropped to 8.9 but he was also hypotensive transfused, Hb up to 9.6 today (4) Paroxysmal atrial fibrillation: Plan: rates controlled (5) Coagulopathy: Plan: hold Eliquis due to bleeding Plan: [facility], check H/H in AM, discuss any further testing with GI tomorrow Admission and Anticipated Discharge Date Admission Date: March 09, 2021 Subjective patient doing well, Hb is stable, BP stable had EGD that showed a gastric polyp, hiatal hernia, no gastritis, no ulcers, no stigmata of bleeding confirms that he had melena for two days prior to admission, he vomited but no hematemesis d/w ICU, will downgrade out of ICU as BP stable check labs tomorrow, have RN advance diet as tolerated Review of Systems Review of Systems: All systems reviewed & are unremarkable except as noted in Subjective Constitutional: + fatigue and + weakness; no fever Respiratory: no cough and no dyspnea Cardiovascular: no chest pain and no edema Gastrointestinal: no abdominal pain, no nausea, no vomiting, no constipation, no diarrhea/loose stools and no melena Physical Exam Constitutional: well developed (elderly male), well nourished and comfortable; no acute distress Neck: trachea midline, no thyromegaly Respiratory: normal respiratory effort, lungs clear to auscultation Cardiovascular: RRR, no murmur, no edema Gastrointestinal (Abdomen): normal bowel sounds, soft, nontender, no hepatosplenomegaly Musculoskeletal: no cyanosis or clubbing, extremities motor strength 5/5 Neurologic: normal touch/pain/proprioception, CN's II-XI intact bilaterally, moves all extremities and awake; no focal motor deficits Psychiatric: A+Ox3, euthymic affect Results & Data Results & Data ([facility]) Vital Signs (Past 12 Hours) Vital Signs Temp Pulse Pulse Resp BP BP Pulse Ox 03/10/21 14:20 65 16 111/47 L 98 03/10/21 13:37 61 16 105/56 L 98 03/10/21 13:20 36.6 C 03/10/21 13:19 64 16 112/60 96 03/10/21 12:09 58 L 18 107/58 L 97 03/10/21 12:02 57 L 18 105/59 L 99 03/10/21 11:58 60 18 111/51 L 97 03/10/21 11:53 61 18 103/38 L 95 03/10/21 11:51 59 L 18 92/45 L 95 03/10/21 11:43 66 18 98/49 L 94 03/10/21 11:37 66 18 95/47 L 94 03/10/21 11:29 67 18 72/32 L 100 03/10/21 11:22 62 18 53/30 L 95 03/10/21 11:18 65 18 99/44 L 95 03/10/21 11:12 68 18 74/35 L 94 03/10/21 11:07 68 18 61/35 L 97 03/10/21 10:16 36.2 C L 64 18 117/55 L 98 03/10/21 09:50 61 18 98/47 L 95 03/10/21 08:55 63 12 95/47 L 96 03/10/21 08:00 36.6 C 57 L 03/10/21 07:52 64 14 97/53 L 96 03/10/21 06:55 58 L 15 76/33 L 93 03/10/21 05:56 56 L 17 77/38 L 96 03/10/21 04:36 36.5 C 59 L 16 77/43 L 98 03/10/21 03:55 53 L 18 76/36 L 97 Laboratory Results Laboratory Results - last 24 hr 03/09/21 03/09/21 03/10/21 23:12 23:12 04:03 WBC 4.99 RBC 2.74 L Hgb 8.6 L 8.9 L Hct 26.8 L 28.4 L MCV 103.6 H MCH 32.5 MCHC 31.3 L RDW Std Deviation 51.7 H RDW Coeff of Francine 13.7 Plt Count 281 MPV 9.3 Immature Gran % (Auto) 0.4 Neut % (Auto) 47.7 Lymph % (Auto) 34.3 [place] % (Auto) 13.6 Eos % (Auto) 3.4 Baso % (Auto) 0.6 Neut # (Auto) 2.38 Lymph # (Auto) 1.71 [place] # (Auto) 0.68 H Eos # (Auto) 0.17 Baso # (Auto) 0.03 Immature Gran # (Auto) 0.02 PT INR APTT PTT Ratio Sodium Potassium Chloride Carbon Dioxide Anion Gap BUN Creatinine Est Cr Clr Drug Dosing Est GFR ( Amer) Est GFR (Non-Af Amer) BUN/Creatinine Ratio Glucose Calcium Ionized Calcium Phosphorus Magnesium Total Bilirubin Direct Bilirubin AST ALT Alkaline Phosphatase Troponin I < 0.015 Total Protein Albumin Random Cortisol 03/10/21 03/10/21 03/10/21 04:03 04:03 04:03 WBC RBC Hgb Hct MCV MCH MCHC RDW Std Deviation RDW Coeff of Francine Plt Count MPV Immature Gran % (Auto) Neut % (Auto) Lymph % (Auto) [place] % (Auto) Eos % (Auto) Baso % (Auto) Neut # (Auto) Lymph # (Auto) [place] # (Auto) Eos # (Auto) Baso # (Auto) Immature Gran # (Auto) PT 10.5 INR 1.0 APTT 25.2 PTT Ratio 1.0 Sodium 139 Potassium 4.1 Chloride 113 H Carbon Dioxide 27 Anion Gap -1.0 L BUN 23 H Creatinine 1.18 Est Cr Clr Drug Dosing 51.6 Est GFR ( Amer) 68.1 Est GFR (Non-Af Amer) 58.8 BUN/Creatinine Ratio 19.7 Glucose 92 Calcium 7.9 L D Ionized Calcium 1.13 Phosphorus 3.1 Magnesium 2.2 Total Bilirubin 1.1 H Direct Bilirubin 0.7 H AST 72 H ALT 91 H Alkaline Phosphatase 153 H Troponin I Total Protein 5.2 L Albumin 2.3 L Random Cortisol 03/10/21 03/10/21 12:31 12:31 WBC RBC Hgb 9.6 L Hct 30.7 L MCV MCH MCHC RDW Std Deviation RDW Coeff of Francine Plt Count MPV Immature Gran % (Auto) Neut % (Auto) Lymph % (Auto) [place] % (Auto) Eos % (Auto) Baso % (Auto) Neut # (Auto) Lymph # (Auto) [place] # (Auto) Eos # (Auto) Baso # (Auto) Immature Gran # (Auto) PT INR APTT PTT Ratio Sodium Potassium Chloride Carbon Dioxide Anion Gap BUN Creatinine Est Cr Clr Drug Dosing Est GFR ( Amer) Est GFR (Non-Af Amer) BUN/Creatinine Ratio Glucose Calcium Ionized Calcium Phosphorus Magnesium Total Bilirubin Direct Bilirubin AST ALT Alkaline Phosphatase Troponin I Total Protein Albumin Random Cortisol 10.06 Medications Administered Current Inpatient Medications Cyclobenzaprine HCl (Cyclobenzaprine Hcl 10 Mg Tab) 10 mg PO TID PRN PRN Reason: Muscle Spasm Stop: 04/08/21 17:19 Pantoprazole Sodium 40 mg/ (Syringe) 10 mls @ 5 mls/min IV BID [facility]IGEL Stop: 04/09/21 20:59 Last Admin: 03/10/21 21:03 Dose: 5 mls/min Documented by: Lisinopril (Lisinopril 10 Mg Tab) 10 mg PO DAILY NIGEL Stop: 04/09/21 08:59 Last Admin: 03/10/21 07:59 Dose: Not Given Documented by: Metoprolol Succinate (Metoprolol Succ 25mg Ext Rel Tab) 25 mg PO DAILY NIGEL Stop: 04/09/21 08:59 Last Admin: 03/10/21 07:59 Dose: Not Given Documented by: PG Care Time/CCT Total # of Minutes Spent Total Time Spent with Patient: Total time spent is greater than 50% in coordination of care (as documented) at patient's floor/unit and/or counseling patient: Coding Level of Care Code 94836 Subs Hosp Care Lvl 3 Diagnoses Acute GI bleeding K92.2 Hypotension I95.9 Hypotension type: unspecified hypotension type Acute blood loss anemia D62 Paroxysmal atrial fibrillation I48.0 Coagulopathy D68.9 (1) Hypotension Hypotension type: unspecified hypotension type Qualified Code(s): I95.9 - Hypotension, unspecified
[2021-03-10] MEDS: PANTOprazole 40 MG in SYRINGE 0 ML IV SCH (21:03)
[2021-03-11 06:31] LABS: Basophils # (auto) 0.03 K/uL (0-0.2); Basophils % (auto) 0.7 %; Eosinophils # (auto) 0.17 K/uL (0-0.5); Eosinophils % (auto) 3.9 %; Hematocrit (blood only) 27.3 % (42-52); Hemoglobin 8.7 g/dL (14.0-18.0); Immature Granulocytes # (auto) 0.01 K/uL (0.00-0.02); Immature Granulocytes % (auto) 0.2 %; Lymphocytes # (auto) 1.25 K/uL (1.2-3.4); Lymphocytes % (auto) 28.9 %; Mean Corpuscular Hgb Conc 31.9 g/dL (32-36); Mean Corpuscular Volume 103.4 fL (80-100); Mean Platelet Volume 9.9 fL (7.4-10.4); Monocytes % (auto) 18.5 %; Neutrophils # (auto) 2.06 K/uL (1.4-6.5); Neutrophils % (auto) 47.8 %; Platelet Count 290 K/uL (130-400); RDW Coefficient of Variation 13.2 % (11.5-14.5); RDW Standard Deviation 49.5 fL (36.4-46.3); Red Blood Count 2.64 M/uL (4.7-6.1); White Blood Count 4.32 K/uL (4.8-10.8)
[2021-03-11 07:11] LABS: BUN Creatinine Ratio 13.1 (10-20); Calcium 8.3 mg/dl (8.5-10.1); Creatinine Clr Calc Pharmacy 63.4 ml/min; Est GFR (African American) 87.4 ml/min; Est GFR (Non-African American) 75.4 ml/min; Magnesium 2.2 mg/dl (1.8-2.4); Phosphorus 2.8 mg/dl (2.5-4.9); Potassium 3.9 mmol/L (3.5-5.1)
[2021-03-11] MEDS: METOPROLOL SUCC 25MG EXT REL TAB PO SCH (08:20)
[2021-03-11] MEDS: PANTOprazole 40 MG in SYRINGE 0 ML IV SCH ×2 (08:43→21:07)
[2021-03-11] MEDS: lisinopril 10 MG TAB PO SCH (09:14)
--- NOTE | 2021-03-11 12:24 | Hospitalist Progress Note ---
Date of Service March 11, 2021 Assessment & Plan (1) Acute GI bleeding: Plan: no further evidence of bleeding, presented with 2 days of melena, no history of such he denies hematemesis EGD 03/10 with hiatal hernia, gastric polyp, no gastritis, no ulcers, no GAVE, no signs of blood continue Protonix 40mg IV BID Hb is 8.7 today, check again in the morning likely okay for discharge to home tomorrow (2) Hypotension: Plan: never required Levophed, resolved with IV fluids and transfusion Hb is 8.7 MAP has been > 70 while in ICU stable ever since he was moved to [facility] (3) Acute blood loss anemia: Plan: Hb dropped to 8.9 but he was also hypotensive Hb is 8.7 today, minimal drop the past 48 hours bleeding likely stopped (4) Paroxysmal atrial fibrillation: Plan: rates controlled continue metoprolol holding Eliquis, will likely hold for a week and then resume outpatient (5) Coagulopathy: Plan: hold Eliquis due to bleeding Plan: H/H in morning, likely home tomorrow Admission and Anticipated Discharge Date Admission Date: March 09, 2021 Subjective patient doing well, he is tolerating his diet, no nausea at all, no abdominal pain he reports having a few dark stools, not as bad as before discussed that Hb is 8.7, relatively stable since he was as low as 8.9 on admission discussed that it can take a while for old blood to pass through GI tract continue to hold Eliquis, check H/H in the morning, if stable then he can go home, he agrees with plan Review of Systems Review of Systems: All systems reviewed & are unremarkable except as noted in Subjective Physical Exam Constitutional: well developed (elderly male), well nourished and comfortable; no acute distress Neck: trachea midline, no thyromegaly Respiratory: normal respiratory effort, lungs clear to auscultation Cardiovascular: RRR, no murmur, no edema Gastrointestinal (Abdomen): normal bowel sounds, soft, nontender, no hepatosplenomegaly Musculoskeletal: no cyanosis or clubbing, extremities motor strength 5/5 Neurologic: normal touch/pain/proprioception, CN's II-XI intact bilaterally, moves all extremities and awake; no focal motor deficits Psychiatric: A+Ox3, euthymic affect Results & Data Results & Data ([facility]) Vital Signs (Past 12 Hours) Vital Signs Temp Pulse Pulse Resp BP BP Pulse Ox 03/11/21 11:40 36.7 C 72 20 113/68 100 03/11/21 09:01 61 03/11/21 07:52 37.5 C 69 18 95/50 L 95 03/11/21 07:49 37.1 C 72 18 226/116 H 219/87 H 99 03/11/21 05:59 117/72 03/11/21 03:00 36.8 C 68 20 96/58 L 97 Laboratory Results Laboratory Results - last 24 hr 03/10/21 03/10/21 03/11/21 12:31 12:31 05:28 WBC 4.32 L RBC 2.64 L Hgb 9.6 L 8.7 L Hct 30.7 L 27.3 L MCV 103.4 H MCH 33.0 MCHC 31.9 L RDW Std Deviation 49.5 H RDW Coeff of Francine 13.2 Plt Count 290 MPV 9.9 Immature Gran % (Auto) 0.2 Neut % (Auto) 47.8 Lymph % (Auto) 28.9 [place] % (Auto) 18.5 Eos % (Auto) 3.9 Baso % (Auto) 0.7 Neut # (Auto) 2.06 Lymph # (Auto) 1.25 [place] # (Auto) 0.80 H Eos # (Auto) 0.17 Baso # (Auto) 0.03 Immature Gran # (Auto) 0.01 Sodium Potassium Chloride Carbon Dioxide Anion Gap BUN Creatinine Est Cr Clr Drug Dosing Est GFR ( Amer) Est GFR (Non-Af Amer) BUN/Creatinine Ratio Glucose Calcium Phosphorus Magnesium Random Cortisol 10.06 03/11/21 05:28 WBC RBC Hgb Hct MCV MCH MCHC RDW Std Deviation RDW Coeff of Francine Plt Count MPV Immature Gran % (Auto) Neut % (Auto) Lymph % (Auto) [place] % (Auto) Eos % (Auto) Baso % (Auto) Neut # (Auto) Lymph # (Auto) [place] # (Auto) Eos # (Auto) Baso # (Auto) Immature Gran # (Auto) Sodium 142 Potassium 3.9 Chloride 112 H Carbon Dioxide 27 Anion Gap 3.0 BUN 13 Creatinine 0.96 Est Cr Clr Drug Dosing 63.4 Est GFR ( Amer) 87.4 Est GFR (Non-Af Amer) 75.4 BUN/Creatinine Ratio 13.1 Glucose 93 Calcium 8.3 L Phosphorus 2.8 Magnesium 2.2 Random Cortisol Medications Administered Current Inpatient Medications Cyclobenzaprine HCl (Cyclobenzaprine Hcl 10 Mg Tab) 10 mg PO TID PRN PRN Reason: Muscle Spasm Stop: 04/08/21 17:19 Pantoprazole Sodium 40 mg/ (Syringe) 10 mls @ 5 mls/min IV BID [facility] Stop: 04/09/21 20:59 Last Admin: 03/11/21 08:43 Dose: 5 mls/min Documented by: Lisinopril (Lisinopril 10 Mg Tab) 10 mg PO DAILY [facility] Stop: 04/09/21 08:59 Last Admin: 03/11/21 09:14 Dose: Not Given Documented by: Metoprolol Succinate (Metoprolol Succ 25mg Ext Rel Tab) 25 mg PO DAILY [facility] Stop: 04/09/21 08:59 Last Admin: 03/11/21 08:20 Dose: Not Given Documented by: PG Care Time/CCT Total # of Minutes Spent Total Time Spent with Patient: Total time spent is greater than 50% in coordina tion of care (as documented) at patient's floor/unit and/or counseling patient: Coding Level of Care Code 35874 Subseq Hosp Care Lvl 2 Diagnoses Acute GI bleeding K92.2 Hypotension I95.9 Hypotension type: unspecified hypotension type Acute blood loss anemia D62 Paroxysmal atrial fibrillation I48.0 Coagulopathy D68.9 (1) Hypotension Hypotension type: unspecified hypotension type Qualified Code(s): I95.9 - Hypotension, unspecified
[2021-03-12 07:01] LABS: Basophils # (auto) 0.02 K/uL (0-0.2); Basophils % (auto) 0.3 %; Eosinophils # (auto) 0.15 K/uL (0-0.5); Eosinophils % (auto) 2.5 %; Hematocrit (blood only) 31.6 % (42-52); Hemoglobin 10.1 g/dL (14.0-18.0); Immature Granulocytes # (auto) 0.01 K/uL (0.00-0.02); Immature Granulocytes % (auto) 0.2 %; Lymphocytes # (auto) 1.56 K/uL (1.2-3.4); Lymphocytes % (auto) 25.7 %; Mean Corpuscular Hemoglobin 32.5 pg (25-34); Mean Corpuscular Volume 101.6 fL (80-100); Mean Platelet Volume 9.7 fL (7.4-10.4); Monocytes # (auto) 0.81 K/uL (0.11-0.59); Monocytes % (auto) 13.3 %; Neutrophils # (auto) 3.52 K/uL (1.4-6.5); Platelet Count 345 K/uL (130-400); RDW Coefficient of Variation 13.3 % (11.5-14.5); RDW Standard Deviation 48.5 fL (36.4-46.3); Red Blood Count 3.11 M/uL (4.7-6.1); White Blood Count 6.07 K/uL (4.8-10.8)
[2021-03-12 07:23] LABS: BUN Creatinine Ratio 8.5 (10-20); Calcium 9.2 mg/dl (8.5-10.1); Creatinine Clr Calc Pharmacy 54.4 ml/min; Est GFR (African American) 72.5 ml/min; Est GFR (Non-African American) 62.6 ml/min; Magnesium 2.1 mg/dl (1.8-2.4); Phosphorus 2.8 mg/dl (2.5-4.9); Potassium 4.3 mmol/L (3.5-5.1)
[2021-03-12] MEDS: lisinopril 10 MG TAB PO SCH (07:33)
[2021-03-12] MEDS: METOPROLOL SUCC 25MG EXT REL TAB PO SCH (07:33)
[2021-03-12] MEDS: PANTOprazole 40 MG in SYRINGE 0 ML IV SCH (07:33)
--- NOTE | 2021-03-12 09:57 | Discharge Summary ---
Date of Service March 12, 2021 Admission HPI Per Admitting Provider Patient is a 80-year-old male who presented approximately last week with acute cholecystitis. He was also found to have atrial fibrillation. His postoperative course has been largely uneventful he was started on apixaban. Since then he has had 2 to 3 days of black stools and worsening generalized fatigue that prompted him to seek medical treatment today in the emergency department. During his emergency department stay he had a large black tarry stool. He was given Kcentra in the emergency department and he has been typed and screened. He is agreeable to receive blood transfusion should he need it. He denies chest pain or shortness of breath just generalized fatigue, no diarrhea, stools as previously reported. Principal Diagnosis GI bleeding, acute blood loss anemia Discharge Exam Constitutional well developed (elderly male), well nourished and comfortable; no acute distress Neck trachea midline, no thyromegaly Respiratory normal respiratory effort, lungs clear to auscultation Cardiovascular RRR, no murmur, no edema Gastrointestinal (Abdomen) normal bowel sounds, soft, nontender, no hepatosplenomegaly Musculoskeletal no cyanosis or clubbing, extremities motor strength 5/5 Neurologic normal touch/pain/proprioception, CN's II-XI intact bilaterally, moves all extremities and awake; no focal motor deficits Psychiatric A+Ox3, euthymic affect Discharge Data Allergies Allergy/AdvReac Type Severity Reaction Status Date / Time No Known Drug Allergies Allergy Unknown Verified 03/10/21 10:09 Consultations 03/09/21 15:30 ED Decision to Admit Stat 03/09/21 16:56 Consult Gastroenterology Routine Procedures Performed Operation Date: 03/10/21 16:30 Actual Procedures p Small Bowel Enteroscopy EGD - Tara Bennett MD Hospital Course (1) Acute GI bleeding: no further evidence of bleeding, presented with 2 days of melena, no history of such in the past he denies hematemesis EGD 03/10 with hiatal hernia, gastric polyp, no gastritis, no ulcers, no GAVE, no signs of blood treated with Protonix 40mg IV BID change to Protonix 40mg PO BID x 2 weeks then 40mg PO daily Hb is >10 today no signs of bleeding for 72 hours (2) Hypotension: never required Levophed, resolved with IV fluids and transfusion Hb is >10 MAP has been > 70 while in ICU stable ever since he was moved to [facility] (3) Acute blood loss anemia: Hb dropped to 8.9 but he was also hypotensive Hb >10 today, trending up bleeding likely stopped (4) Paroxysmal atrial fibrillation: rates controlled continue metoprolol holding Eliquis, can resume on 03/17 (5) Coagulopathy: hold Eliquis due to bleeding discharge to home Total Time Total Time Spent Total Time Spent (In Minutes): 31 Total Time Includes: Examination of the Patient, Discharge Planning, Medication Reconciliation and Communication With Other Providers Discharge Plan Discharge Items Patient Disposition: Home - Self-Care Reason For Visit: GI BLEEDING Discharge Diagnosis: GI bleeding Condition on Discharge: Good Activity: Resume your previous activity Driving/Machine Use: No limitations Weightbearing: Full weightbearing Non-emergency contact: Primary Care Provider Call non-emergency contact if: you have any medication questions Follow-up/Referrals: Scout Tomlin MD [Primary Care Provider] - (one week) Diet: Regular Addtl Attending Provider Instructions: Medications: - PROTONIX: take 40mg twice a day for 2 weeks then you can reduce to 40mg daily, continue to take until told to stop by PCP this reduces acid production in stomach, protects against ulcers, gastritis - ELIQUIS: recommend holding this through 03/16, you can resume on Wednesday03/17/21 GI bleeding, dark stools, anemia no signs of bleeding for over 72 hours hemoglobin is stable, it is > 10 today, vitals stable EGD did not show any obvious bleeding, specifically no ulcers, gastritis, esophagitis not uncommon to have bleeding that resolves and then a normal EGD, 90% of bleeds are upper GI bleeds meaning they come from stomach or first portion of small intestine, duodenum hold Eliquis for time being, okay to resume on 03/17/21 certainly if you have dark stools again in the future you can return to the emergency room or you can be referred to see gastroenterology again for outpatient scopes will use Protonix in the meantime to reduce risk of ulcers, bleeding Pending Studies at Discharge: No Stand-Alone Forms: My [employer], Smoking Cessation Medications and DC Order Prescriptions: New pantoprazole [Protonix] 40 mg tablet,delayed release (DR/EC) 40 mg PO BID 30 Days Qty: 60 RF: 1 Continued cyclobenzaprine 10 mg tablet 10 mg PO TID PRN (Reason: Muscle Spasm) RF: 0 quinidine sulfate 200 mg tablet 200 mg PO DAILY PRN (Reason: cramping) RF: 0 Eliquis 5 mg tablet 5 mg PO BID Qty: 60 RF: 0 lisinopril 10 mg tablet 10 mg PO DAILY Qty: 30 RF: 3 metoprolol succinate 25 mg tablet extended release 24 hr 25 mg PO DAILY Qty: 30 RF: 3 Discharge Orders: Discharge Order (Routine); Ordered 03/12/21 Ordered By: Haseeb Dawson Admission Data Admit Date/Time: 03/09/21 16:19 Attending Provider: Haseeb Dawson Admit Provider: Marcelo Suggs Primary Care Provider: Scout Tomlin Other Providers: Marcelo Suggs ; Vin Yeboah Other Interventions: Discharge Summary Assessment (RN) Last Done: 03/10/21 12:09 Coding Level of Care Code D/C DAY MANAGEMENT >30 MINS Diagnoses Acute GI bleeding K92.2 Hypotension I95.9 Hypotension type: unspecified hypotension type Acute blood loss anemia D62 Paroxysmal atrial fibrillation I48.0 Coagulopathy D68.9
== END 2021-03-12 11:00 | disposition home or self-care (01) | DRG 813 ==
LOC: ED 14:25 → 1E 16:19 → INTOOBSV 16:19 → SUATTDRO 16:19 → 1E 16:57 → 2N 03-10 15:31